=== PATIENT | female | born 1980 | race Caucasian/White ===

== ENCOUNTER 2021-03-09 17:49 | Emergency (ER) | payer OTHER ==
--- OUTSIDE RECORDS SUMMARY | 2021-03-09 17:52 | XMS REPORT | Continuity of Care Document ---
:1980 Author Organization [facility] t Address [address] [place] [address] Care Team Providers Name Role Phone NO Primary Care Physician Unavailable Payers Payer Name Policy Type Policy Number Effective Date Expiration Date S ource Problems This patient has no known problems. Allergies, Adverse Reactions, Alerts Allergy Allergy Status Severity Reaction(s) Onset Inactive Treating Comm ents Source Name Type Date Date Clinician No Known DA Active [facility] All[facility]ie 2-21 Clear s 00:00: [place] 00 [facility] Social History Social Habit Start Date Stop Date Quantity Comments Source Tobacco use and 2018-02-19 2018-02-19 Never used Dawson Mcdaniel ethodist exposure 00:00:00 00:00:00 Alcohol intake 2018-02-19 2018-02-19 Current drinker [place] [facility] 00:00:00 00:00:00 of alcohol (finding) Alcohol Comment 2018-02-18 2018-02-18 socially Dawson Mcdaniel ethodist 00:00:00 00:00:00 [birth year] Dawson Mcdaniel ethodist 00:00:00 00:00:00 Smoking Status Start Date Stop Date Source Never smoker Dawson awan Medications Ordered Filled Start Stop Current Ordering Indication Dosage Frequency Signature Comments Components Source Medication Medication Date Date Medication? Clinician (SIG) Name Name traMADol 2017- Yes 50mg Q6H Take 50 mg Josseline ston (ULTRAM) 50 4-16 by mouth Meth ann mg tablet 21:51: every 6 st 23 (six) hours as needed for moderate pain. aspirin-johnson 2017- Yes 1{tbl} Q6H Take 1 [place] taminophen- 4-16 tablet by Met h[place] caffeine 21:51: mouth st (EXCEDRIN 23 every 6 MIGRAINE) (six) 250-250-65 hours as mg per needed for tablet headaches. acetaminoph Yes 500mg Q6H Take 500 [place] en 4-16 mg by Methodi (TYLENOL) 21:51: mouth st 500 MG 23 every 6 tablet (six) hours as needed for mild pain. Procedures This patient has no known procedures. Encounters Start End Encounter Admission Attending Care Care Encounter Source Date/Time Date/Time Type Type Clinicians Facility Department ID 2017-12-10 2017-12-10 Departed [facility] [id number] [address] 15:39:00 16:35:00 Emergency [address] [place] s [facility] Results Test Description Test Time Test Comments Results Result Comments Source URINALYSIS COMPLETE 2019-08-14 14:21:00 Test Item Value Reference Range Interpretation Comme nts UA COLOR (test code = COLU) YELLOW YELLOW UA APPEARANCE (test code = APPU) CLEAR CLEAR UA GLUCOSE DIPSTICK (test code = DGLUU) norm mg/dL NEGATIVE UA BILIRUBIN DIPSTICK (test code = BILU) NEGATIVE mg/dL NEGATIVE UA KETONE DIPSTICK (test code = KETU) neg mg/dL NEGATIVE UA SPECIFIC GRAVITY (test code = SGU) 1.010 1.001-1.035 UA BLOOD DIPSTICK (test code = DAVID) 10 (Trace) Jason/uL NEGATIVE A UA PH DIPSTICK (test code = DONNY) 7.0 5.0-8.0 UA PROTEIN DIPSTICK (test code = PROU) neg mg/dL Neg-15 UA UROBILINIOGEN DIPSTICK (test code = URO) norm mg/dL 0.0-0.2 UA NITRITE DIPSTICK (test code = RONALD) NEGATIVE NEGATIVE UA LEUKOCYTE ESTERASE DIPSTICK (test code = LEUU) neg uL NEGA TIVE UA WBC (test code = WBCU) 0-5 per HPF 0-5 UA RBC (test code = RBCU) 0-3 per HPF 0-5 UA EPITHELIAL CELLS (test code = EPIU) MODERATE per HPF Few UA BACTERIA (test code = BACU) FEW per HPF NONE Urine Source? Clean CatchUR HCG [id number] 14:21:00 Test Item Value Reference Range Interpretation Comments UR HCG QUAL (test NEGATIVE This HCGQL test is NOT code = HCGQLU) applicable fo r MALE patients.Check with nurse about probable order error.If Tumor Marker Test needed, nu rse should order test "HCG TU"(Test #[id number])---- - Urine Source? Clean CatchURINALYSIS [id number] 14:19:00 Test Item Value Reference Range Interpretation Comments UA COLOR (test code = COLU) YELLOW YELLOW UA APPEARANCE (test code = CLEAR CLEAR APPU) UA GLUCOSE DIPSTICK (test norm mg/dL NEGATIVE code = DGLUU) UA BILIRUBIN DIPSTICK (test NEGATIVE mg/dL NEGATIVE code = BILU) UA KETONE DIPSTICK (test neg mg/dL NEGATIVE code = KETU) UA SPECIFIC GRAVITY (test 1.010 1.001-1.035 code = SGU) UA BLOOD DIPSTICK (test 10 (Trace) Jason/uL NEGATIVE A code = DAVID) UA PH DIPSTICK (test code = 7.0 5.0-8.0 DONNY) UA PROTEIN DIPSTICK (test neg mg/dL Neg-15 code = PROU) UA UROBILINIOGEN DIPSTICK norm mg/dL 0.0-0.2 (test code = URO) UA NITRITE DIPSTICK (test NEGATIVE NEGATIVE code = RONALD) UA LEUKOCYTE ESTERASE neg uL NEGATIVE DIPSTICK (test code = LEUU) UA WBC (test code = WBCU) per HPF 0-5 UA RBC (test code = RBCU) per HPF 0-5 UA EPITHELIAL CELLS (test per HPF Few code = EPIU) UA BACTERIA (test code = per HPF NONE BACU) Urine Source? Clean CatchUR HCG [id number] 14:19:00 Test Item Value Reference Range Interpretation Comments UR HCG QUAL (test NEGATIVE This HCGQL test is NOT code = HCGQLU) applicable fo r MALE patients.Check with nurse about probable order error.If Tumor Marker Test needed, nu rse should order test "HCG TU"(Test #[id number])---- - Urine Source? Clean CatchURINALYSIS [id number] 14:03:00 Test Item Value Reference Range Interpretation Comments UA COLOR (test code = COLU) YELLOW YELLOW UA APPEARANCE (test code = CLEAR CLEAR APPU) UA GLUCOSE DIPSTICK (test norm mg/dL NEGATIVE code = DGLUU) UA BILIRUBIN DIPSTICK (test NEGATIVE mg/dL NEGATIVE code = BILU) UA KETONE DIPSTICK (test neg mg/dL NEGATIVE code = KETU) UA SPECIFIC GRAVITY (test 1.010 1.001-1.035 code = SGU) UA BLOOD DIPSTICK (test 10 (Trace) Jason/uL NEGATIVE A code = DAVID) UA PH DIPSTICK (test code = 7.0 5.0-8.0 DONNY) UA PROTEIN DIPSTICK (test neg mg/dL Neg-15 code = PROU) UA UROBILINIOGEN DIPSTICK norm mg/dL 0.0-0.2 (test code = URO) UA NITRITE DIPSTICK (test NEGATIVE NEGATIVE code = RONALD) UA LEUKOCYTE ESTERASE neg uL NEGATIVE DIPSTICK (test code = LEUU) UA WBC (test code = WBCU) per HPF 0-5 UA RBC (test code = RBCU) per HPF 0-5 UA EPITHELIAL CELLS (test per HPF Few code = EPIU) UA BACTERIA (test code = per HPF NONE BACU) Urine Source? Clean CatchUR HCG [id number] 14:03:00 Test Item Value Reference Range Interpretation Comments UR HCG QUAL (test code = HCGQLU) Urine Source? Clean Catch
[2021-03-09 22:47] LABS: Urine Blood 2+ (Negative); Urine Glucose Negative (Negative); Urine Protein Negative (Negative); Urine pH 6.5 (5.0-7.0)
[2021-03-09] MEDS ORDERED: HYDROCODONE/APAP 7.5/325 MG TAB ONE (23:00)
[2021-03-09] MEDS ORDERED: CYCLOBENZAPRINE 10 MG TAB ONE (23:00)
[2021-03-10] MEDS ORDERED: MEPERIDINE HCL 25 MG/ML SYR ONE (00:27)
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
[2021-03-10 01:12] VITALS: BP 131/86; TEMP 97.7; O2SAT 100
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
== END 2021-03-10 00:59 | disposition home or self-care (01) ==
LOC: ER 17:49
DX: M54.2 Cervicalgia (principal); M54.9 Dorsalgia, unspecified; V43.52XA Car driver injured in collision with other type car in traffic accident, initial encounter
CPT/HCPCS: 81025; 81003; 72131; 70450; 72125; 72128; 96372; 99283; J2175

== ENCOUNTER 2023-05-17 10:25 | Emergency (ER) | payer OTHER ==
--- OUTSIDE RECORDS SUMMARY | 2023-05-17 10:37 | XMS REPORT | Continuity of Care Document ---
:[address] [facility] t Address [address] [place] [address] Care Team Providers Name Role Phone Asked, No Pcp Primary Care Physician Unavailable GLORIA JOHNSTON Attending Clinician Unavailable lGoria Jon Attending Clinician Unknown, Attending Attending Clinician Unavailable Doctor Unassigned, [place] Attending Clinician Unavailable Harriett Metzger Attending Clinician Payers Payer Name Policy Type Policy Number Effective Date Expiration Date Amando velazquez [facility] [id number] 2022 00:00:00 Problems This patient has no known problems. Allergies, Adverse Reactions, Alerts Allergy Allergy Status Severity Reaction(s) Onset Inactive Treating Comm ents Source Name Type Date Date Clinician No Known DA Active U [facility] No Known DA Active U 2017- [facility] Allergie 2-21 Clear s 00:00: [place] 00 [facility] NO KNOWN Drug Active Univers ALLERGIE Class ity of S [facility] Social History Social Habit Start Date Stop Date Quantity Comments Source [facility] History of tobacco Cigarette Smoker University of use [facility] Exposure to 2022-12-22 2023-01-01 Not sure University SARS-CoV-2 (event) 00:00:00 17:43:00 [facility] Tobacco use and 2023-01-01 2023-01-01 Smokeless Universit y of exposure 00:00:00 00:00:00 tobacco non-user [facility] History of Social 2018-10-09 2018-10-[address] function 00:00:00 00:00:00 Hospital Alcohol intake 2018-02-19 2018-02-19 Current drinker [facility] 00:00:00 00:00:00 of [facility] (finding) Alcohol Comment 2018-02-18 2018-02-18 socially [facility] Sex Assigned At [birth year] [facility] 00:[facility] Smoking Status Start Date Stop Date Source Tobacco [facility] 2023-01-01 00:00:00 Univers [facility] Never smoked tobacco [facility] Medications Ordered Filled Start Stop Current Ordering Indication Dosage Frequency Signature Comments Components Source Medication Medication Date Date Medication? Clinician (SIG) Name Name albuterol Yes [id number] 2{puff} Inhale 2 Univers 90 2-27 Puffs ity of mcg/actuati 00:00: every 6 Jorge as on inhaler 00 (six) Medical hours as Branch needed for Chest tightness or Bronchospa sm. promethazin 2022- No [id number] 5mL Take 5 mL Univers e-dextromet 27 03-10 by mouth 4 i ty of horphan 00:00: 05:59 (four) [place] 6.25-15 00 :00 times Medical mg/5 mL daily for Branch syrup 10 days. amoxicillin 2022- No [id number] 1{tbl} Take 1 Univers -clavulanat 2-27 03-10 tablet by it y of e 00:00: 05:59 mouth in [place] (AUGMENTIN) 00 :00 the [facility] 875-125 mg morning Branch per tablet and 1 tablet in the evening. Do all this for 10 days. predniSONE 0 2022- No [id number] 40mg Take 2 Univers 20 mg 2- 03-05 tablets by ity of tablet 00:00: 05:59 mouth in [place] 00 :00 the Medical morning Branch for 5 days. Dose 2022-0 No Unknown 8 00:00: 00 &lt 2022-0 No 8 00:00: 00 &lt 2022-0 No 300 8 00:00: 00 &lt 2022-0 No 10 06-15 00:00: 00 &lt 2022-0 No 50 8 00:00: 00 Dose 2-0 No Unknown 8 00:00: 00 TAKE 1 2021-0 No 10 TABLET BY 8-11 MOUTH EVERY 00:00: DAY 00 TAKE 1 2021-0 No 800 TABLET BY 8-11 MOUTH EVERY 00:00: DAY 00 NEEDED FOR PAIN Dose 2022-0 No Unknown 8 00:00: 00 Dose 2022-0 No Unknown 8 00:00: 00 &lt 2022-0 No 8 00:00: 00 &lt 2022-0 No 300 8 00:00: 00 &lt 2022-0 No 10 8 00:00: 00 &lt 2022-0 No 50 8 00:00: 00 Dose 2022-0 No Unknown 06-15 00:00: 00 TAKE 1 2-0 No 10 TABLET BY 8-11 MOUTH EVERY 00:00: DAY 00 TAKE 1 2-0 No 800 TABLET BY 8-11 MOUTH EVERY 00:00: DAY 00 NEEDED FOR PAIN Dose 2022-0 No Unknown 8 00:00: 00 Dose 2022-0 No Unknown 8 00:00: 00 &lt 2022-0 No 8- 00:00: 00 &lt 2022-0 No 300 8- 00:00: 00 &lt 2022-0 No 10 8 00:00: 00 &lt 2022-0 No 50 8- 00:00: 00 Dose 2022-0 No Unknown 06-15 00:00: 00 TAKE 1 2022-0 No 10 TABLET BY 8-11 MOUTH EVERY 00:00: DAY 00 TAKE 1 2022-0 No 800 TABLET BY 8-11 MOUTH EVERY 00:00: DAY 00 NEEDED FOR PAIN Dose 2022-0 No Unknown 06-15 00:00: 00 &lt 2022-0 No 50 8- 00:00: 00 &lt 2022-0 No 50 06-13 00:00: 00 &lt 2022-0 No 50 06-13 00:00: 00 Dose 2022-0 No Unknown 8 00:00: 00 &lt 2022-0 No 8- 00:00: 00 TAKE 1 2022-0 No 25 TABLET BY 8-03 MOUTH EVERY 00:00: 6 HOURS 00 NEEDED NEEDED ANXIETY &lt 2022-0 No 20 8- 00:00: 00 &lt 2022-0 No 800 8- 00:00: 00 Dose 2022-0 No Unknown 8- 00:00: 00 &lt 2022-0 No 8- 00:00: 00 TAKE 1 2022-0 No 25 TABLET BY 8-03 MOUTH EVERY 00:00: 6 HOURS 00 NEEDED NEEDED ANXIETY &lt 2022-0 No 20 8- 00:00: 00 &lt 2022-0 No 800 8- 00:00: 00 Dose 2022-0 No Unknown 8- 00:00: 00 &lt 2022-0 No 8-03 00:00: 00 TAKE 1 2022-0 No 25 TABLET BY 8-03 MOUTH EVERY 00:00: 6 HOURS 00 NEEDED NEEDED ANXIETY &lt 2022-0 No 20 8-03 00:00: 00 &lt 2022-0 No 800 8-03 00:00: 00 Dose 2022-0 No Unknown 8- 00:00: 00 &lt 2022-0 No 8-03 00:00: 00 TAKE 1 2022-0 No 25 TABLET BY 8-03 MOUTH EVERY 00:00: 6 HOURS 00 NEEDED NEEDED ANXIETY &lt 2022-0 No 20 8-03 00:00: 00 &lt 2022-0 No 800 8-03 00:00: 00 TAKE 1 2022-0 No 10 TABLET BY 7-14 MOUTH EVERY 00:00: DAY 00 Dose 2022-0 No Unknown 7-14 00:00: 00 TAKE 1 2022-0 No 10 TABLET BY 7-14 MOUTH EVERY 00:00: DAY 00 Dose 2022-0 No Unknown 7-14 00:00: 00 TAKE 1 2022-0 No 10 TABLET BY 7-14 MOUTH EVERY 00:00: DAY 00 Dose 2022-0 No Unknown 7-14 00:00: 00 TAKE 1 2-0 No 10 TABLET BY 7-14 MOUTH EVERY 00:00: DAY 00 Dose 2022-0 No Unknown 7-14 00:00: 00 Bromfed DM 2-0 No 10mg/5 2 mg-30 7-13 mL mg-10 mg/5 00:00: mL oral 00 syrup &lt 2022-0 No 50 7-13 00:00: 00 &lt 2022-0 No 7-13 00:00: 00 &lt 2022-0 No 7-13 00:00: 00 &lt 2022-0 No 300 7-13 00:00: 00 Dose 2022-0 No Unknown 7-13 00:00: 00 APPLY 1 2-0 No APPLICATION 7-13 ON THE SKIN 00:00: TWICE A DAY 00 TAKE 1 2-0 No 100 CAPSULE BY 7-13 MOUTH 3 00:00: TIMES A DAY 00 NEEDED FOR COUGH Dose 2022-0 No Unknown 7-13 00:00: 00 TAKE 1 2-0 No 100 CAPSULE BY 7-13 MOUTH 3 00:00: TIMES A DAY 00 NEEDED FOR COUGH TAKE 1 2-0 No 100 CAPSULE BY 7-13 MOUTH 3 00:00: TIMES A DAY 00 NEEDED FOR COUGH &lt 2022-0 No 250 7-13 00:00: 00 Dose 2022-0 No Unknown 7-13 00:00: 00 Dose 2022-0 No Unknown 7-13 00:00: 00 Dose 2022-0 No 20 Unknown 7-13 00:00: 00 Dose 2022-0 No 10 Unknown 7-13 00:00: 00 &lt 2022-0 No 7-13 00:00: 00 &lt 2022-0 No 150 7-13 00:00: 00 Bromfed DM 2-0 No 10mg/5 2 mg-30 7-13 mL mg-10 mg/5 00:00: mL oral 00 syrup &lt 2022-0 No 50 7-13 00:00: 00 &lt 2022-0 No 7-13 00:00: 00 &lt 2022-0 No 7-13 00:00: 00 &lt 2022-0 No 300 7-13 00:00: 00 Dose 2022-0 No Unknown 7-13 00:00: 00 APPLY 1 2-0 No APPLICATION 7-13 ON THE SKIN 00:00: TWICE A DAY 00 TAKE 1 2022-0 No 100 CAPSULE BY 7-13 MOUTH 3 00:00: TIMES A DAY 00 NEEDED FOR COUGH Dose 2022-0 No Unknown 7- 00:00: 00 TAKE 1 2-0 No 100 CAPSULE BY 7-13 MOUTH 3 00:00: TIMES A DAY 00 NEEDED FOR COUGH TAKE 1 2-0 No 100 CAPSULE BY 7-13 MOUTH 3 00:00: TIMES A DAY 00 NEEDED FOR COUGH &lt 2022-0 No 250 7-13 00:00: 00 Dose 2022-0 No Unknown 7- 00:00: 00 Dose 2022-0 No Unknown 7- 00:00: 00 Dose 2022-0 No 20 Unknown 7-13 00:00: 00 Dose 2022-0 No 10 Unknown 7-13 00:00: 00 &lt 2022-0 No 7-13 00:00: 00 &lt 2022-0 No 150 7-13 00:00: 00 Bromfed DM 2-0 No 10mg/5 2 mg-30 7-13 mL mg-10 mg/5 00:00: mL oral 00 syrup &lt 2022-0 No 50 7-13 00:00: 00 &lt 2022-0 No 7-13 00:00: 00 &lt 2022-0 No 7-13 00:00: 00 &lt 2022-0 No 300 7-13 00:00: 00 Dose 2022-0 No Unknown 7- 00:00: 00 APPLY 1 2-0 No APPLICATION 7-13 ON THE SKIN 00:00: TWICE A DAY 00 TAKE 1 2-0 No 100 CAPSULE BY 7-13 MOUTH 3 00:00: TIMES A DAY 00 NEEDED FOR COUGH Dose 2022-0 No Unknown 7- 00:00: 00 TAKE 1 2022-0 No 100 CAPSULE BY 7-13 MOUTH 3 00:00: TIMES A DAY 00 NEEDED FOR COUGH TAKE 1 2021-0 No 100 CAPSULE BY 7-13 MOUTH 3 00:00: TIMES A DAY 00 NEEDED FOR COUGH &lt 2-0 No 250 7-13 00:00: 00 Dose 2022-0 No Unknown 7- 00:00: 00 Dose 2022-0 No Unknown 7- 00:00: 00 Dose 2022-0 No 20 Unknown 7- 00:00: 00 Dose 2022-0 No 10 Unknown 7- 00:00: 00 &lt 2022-0 No 7-13 00:00: 00 &lt 2022-0 No 150 7- 00:00: 00 Bromfed DM 2021-0 No 10mg/5 2 mg-30 7-13 mL mg-10 mg/5 00:00: mL oral 00 syrup &lt 2021-0 No 50 7- 00:00: 00 &lt 2022-0 No 7-13 00:00: 00 &lt 2022-0 No 7-13 00:00: 00 &lt 2022-0 No 300 7- 00:00: 00 Dose 2-0 No Unknown 7 00:00: 00 APPLY 1 2021-0 No APPLICATION 7-13 ON THE SKIN 00:00: TWICE A DAY 00 TAKE 1 2021-0 No 100 CAPSULE BY 7-13 MOUTH 3 00:00: TIMES A DAY 00 NEEDED FOR COUGH Dose 2-0 No Unknown 7- 00:00: 00 TAKE 1 2021-0 No 100 CAPSULE BY 7-13 MOUTH 3 00:00: TIMES A DAY 00 NEEDED FOR COUGH TAKE 1 2021-0 No 100 CAPSULE BY 7-13 MOUTH 3 00:00: TIMES A DAY 00 NEEDED FOR COUGH &lt 2-0 No 250 7-13 00:00: 00 Dose 2-0 No Unknown 7- 00:00: 00 Dose 2022-0 No Unknown 7- 00:00: 00 Dose 2022-0 No 20 Unknown 7- 00:00: 00 Dose 2022-0 No 10 Unknown 7- 00:00: 00 &lt 2022-0 No 7-13 00:00: 00 &lt 2022-0 No 150 7- 00:00: 00 Bromfed DM 2022-0 No 10mg/5 2 mg-30 7-13 mL mg-10 mg/5 00:00: mL oral 00 syrup &lt 2022-0 No 50 7-13 00:00: 00 &lt 2022-0 No 7-13 00:00: 00 &lt 2022-0 No 7-13 00:00: 00 &lt 2022-0 No 300 7-13 00:00: 00 Dose 2022-0 No Unknown 7- 00:00: 00 APPLY 1 2-0 No APPLICATION 7-13 ON THE SKIN 00:00: TWICE A DAY 00 TAKE 1 2021-0 No 100 CAPSULE BY 7-13 MOUTH 3 00:00: TIMES A DAY 00 NEEDED FOR COUGH Dose 2-0 No Unknown 7- 00:00: 00 TAKE 1 2-0 No 100 CAPSULE BY 7-13 MOUTH 3 00:00: TIMES A DAY 00 NEEDED FOR COUGH TAKE 1 2-0 No 100 CAPSULE BY 7-13 MOUTH 3 00:00: TIMES A DAY 00 NEEDED FOR COUGH &lt 2022-0 No 250 7- 00:00: 00 Dose 2022-0 No Unknown 7- 00:00: 00 Dose 2022-0 No Unknown 7 00:00: 00 Dose 2022-0 No 20 Unknown 7 00:00: 00 Dose 2022-0 No 10 Unknown 7- 00:00: 00 &lt 2022-0 No 7- 00:00: 00 &lt 2022-0 No 150 7- 00:00: 00 Dose 2022-0 No 10 Unknown 7- 00:00: 00 Dose 2022-0 No 20 Unknown 7- 00:00: 00 Dose 2022-0 No 10 Unknown 7- 00:00: 00 Dose 2022-0 No 20 Unknown 7- 00:00: 00 Dose 2022-0 No 10 Unknown 7- 00:00: 00 Dose 2022-0 No 20 Unknown 7 00:00: 00 Dose 2022-0 No 10 Unknown 7- 00:00: 00 Dose 2022-0 No 20 Unknown 7 00:00: 00 Dose 2022-0 No 10 Unknown 7- 00:00: 00 Dose 2022-0 No 20 Unknown 7 00:00: 00 Dose 2022-0 No 10 Unknown 7-07 00:00: 00 Dose 2022-0 No 20 Unknown 05-11 00:00: 00 ibuprofen 2022-0 No 1mg 600 mg 7-06 tablet 00:00: 00 gabapentin 2022-0 No 1mg 300 mg 7-06 capsule 00:00: 00 TAKE 1 2022-0 No 20 TABLET BY 7-06 MOUTH TWICE 00:00: A DAY 00 TAKE 1 2022-0 No 100 CAPSULE BY 7-06 MOUTH 3 00:00: TIMES A DAY 00 NEEDED FOR COUGH &lt 2022-0 No 10 - 00:00: 00 TAKE 1 2022-0 No 10 TABLET BY 7-06 MOUTH EVERY 00:00: DAY 00 APPLY 1 2022-0 No APPLICATION 7-06 ON THE SKIN 00:00: TWICE A DAY 00 Dose 2022-0 No Unknown 05-10 00:00: 00 ibuprofen 2022-0 No 1mg 600 mg 7-06 tablet 00:00: 00 gabapentin 2022-0 No 1mg 300 mg 7-06 capsule 00:00: 00 TAKE 1 2022-0 No 20 TABLET BY 7-06 MOUTH TWICE 00:00: A DAY 00 TAKE 1 2022-0 No 100 CAPSULE BY 7-06 MOUTH 3 00:00: TIMES A DAY 00 NEEDED FOR COUGH &lt 2022-0 No 10 05-10 00:00: 00 TAKE 1 2022-0 No 10 TABLET BY 7-06 MOUTH EVERY 00:00: DAY 00 APPLY 1 2022-0 No APPLICATION 7-06 ON THE SKIN 00:00: TWICE A DAY 00 Dose 2022-0 No Unknown 05-10 00:00: 00 ibuprofen 2022-0 No 1mg 600 mg 7-06 tablet 00:00: 00 gabapentin 2022-0 No 1mg 300 mg 7-06 capsule 00:00: 00 TAKE 1 2022-0 No 20 TABLET BY 7-06 MOUTH TWICE 00:00: A DAY 00 TAKE 1 2022-0 No 100 CAPSULE BY 7-06 MOUTH 3 00:00: TIMES A DAY 00 NEEDED FOR COUGH &lt 2022-0 No 10 - 00:00: 00 TAKE 1 2022-0 No 10 TABLET BY 7-06 MOUTH EVERY 00:00: DAY 00 APPLY 1 2022-0 No APPLICATION 7-06 ON THE SKIN 00:00: TWICE A DAY 00 Dose 2022-0 No Unknown 7-06 00:00: 00 ibuprofen 2022-0 No 1mg 600 mg 7-06 tablet 00:00: 00 gabapentin 2022-0 No 1mg 300 mg 7-06 capsule 00:00: 00 TAKE 1 2022-0 No 20 TABLET BY 7-06 MOUTH TWICE 00:00: A DAY 00 TAKE 1 2022-0 No 100 CAPSULE BY 7-06 MOUTH 3 00:00: TIMES A DAY 00 NEEDED FOR COUGH &lt 2022-0 No 10 7- 00:00: 00 TAKE 1 2022-0 No 10 TABLET BY 7-06 MOUTH EVERY 00:00: DAY 00 APPLY 1 2022-0 No APPLICATION 7-06 ON THE SKIN 00:00: TWICE A DAY 00 Dose 2022-0 No Unknown - 00:00: 00 ibuprofen 2022-0 No 1mg 600 mg 7-06 tablet 00:00: 00 gabapentin 2022-0 No 1mg 300 mg 7-06 capsule 00:00: 00 TAKE 1 2022-0 No 20 TABLET BY 7-06 MOUTH TWICE 00:00: A DAY 00 TAKE 1 2022-0 No 100 CAPSULE BY 7-06 MOUTH 3 00:00: TIMES A DAY 00 NEEDED FOR COUGH &lt 2022-0 No 10 7- 00:00: 00 TAKE 1 2022-0 No 10 TABLET BY 7-06 MOUTH EVERY 00:00: DAY 00 APPLY 1 2022-0 No APPLICATION 7-06 ON THE SKIN 00:00: TWICE A DAY 00 Dose 2022-0 No Unknown 05-10 00:00: 00 ibuprofen 2022-0 No 1mg 600 mg 7-06 tablet 00:00: 00 gabapentin 2022-0 No 1mg 300 mg 7-06 capsule 00:00: 00 TAKE 1 2022-0 No 20 TABLET BY 7-06 MOUTH TWICE 00:00: A DAY 00 TAKE 1 2022-0 No 100 CAPSULE BY 7-06 MOUTH 3 00:00: TIMES A DAY 00 NEEDED FOR COUGH &lt 2022-0 No 10 - 00:00: 00 TAKE 1 2022-0 No 10 TABLET BY 7-06 MOUTH EVERY 00:00: DAY 00 APPLY 1 2022-0 No APPLICATION 7-06 ON THE SKIN 00:00: TWICE A DAY 00 Dose 2022-0 No Unknown 7- 00:00: 00 &lt 2022-0 No 7-05 00:00: 00 &lt 2022-0 No 7-05 00:00: 00 &lt 2022-0 No 7-05 00:00: 00 &lt 2022-0 No 7-05 00:00: 00 &lt 2022-0 No 7-05 00:00: 00 &lt 2022-0 No 7-05 00:00: 00 TAKE 1 2022-0 No TABLET BY 6-23 MOUTH TWICE 00:00: A DAY 00 TAKE 1 2022-0 No TABLET BY 6-23 MOUTH TWICE 00:00: A DAY 00 TAKE 1 2022-0 No TABLET BY 6-23 MOUTH TWICE 00:00: A DAY 00 TAKE 1 2022-0 No TABLET BY 6-23 MOUTH TWICE 00:00: A DAY 00 TAKE 1 2022-0 No TABLET BY 6-23 MOUTH TWICE 00:00: A DAY 00 TAKE 1 2022-0 No TABLET BY 6-23 MOUTH TWICE 00:00: A DAY 00 ProAir HFA 2021-0 No 1mcg/ac 90 5-18 tuation mcg/actuati 00:00: on aerosol 00 inhaler cetirizine 2021-0 No 1mg 10 mg 5-18 tablet 00:00: 00 fluticasone 2-0 No 1mcg/ac propionate 5-18 tuation 50 00:00: mcg/actuati 00 on nasal spray,suspe nsion Bromfed DM 2021-0 No 10mg/5 2 mg-30 5-18 mL mg-10 mg/5 00:00: mL oral 00 syrup ProAir HFA 2021-0 No 1mcg/ac 90 5-18 tuation mcg/actuati 00:00: on aerosol 00 inhaler cetirizine 2021-0 No 1mg 10 mg 5-18 tablet 00:00: 00 fluticasone 2-0 No 1mcg/ac propionate 5-18 tuation 50 00:00: mcg/actuati 00 on nasal spray,suspe nsion Bromfed DM 2021-0 No 10mg/5 2 mg-30 5-18 mL mg-10 mg/5 00:00: mL oral 00 syrup ProAir HFA 2021-0 No 1mcg/ac 90 5-18 tuation mcg/actuati 00:00: on aerosol 00 inhaler cetirizine 2021-0 No 1mg 10 mg 5-18 tablet 00:00: 00 fluticasone 2021-0 No 1mcg/ac propionate 5-18 tuation 50 00:00: mcg/actuati 00 on nasal spray,susptrinh Felton DM 2021-0 No 10mg/5 2 mg-30 5-18 mL mg-10 mg/5 00:00: mL oral 00 syrup ProAir HFA 2021-0 No 1mcg/ac 90 5-18 tuation mcg/actuati 00:00: on aerosol 00 inhaler cetirizine 2021-0 No 1mg 10 mg 5-18 tablet 00:00: 00 fluticasone 2021-0 No 1mcg/ac propionate 5-18 tuation 50 00:00: mcg/actuati 00 on nasal spray,susptrinh Fel[place] DM 2021-0 No 10mg/5 2 mg-30 5-18 mL mg-10 mg/5 00:00: mL oral 00 syrup ProAir HFA 2021-0 No 1mcg/ac 90 5-18 tuation mcg/actuati 00:00: on aerosol 00 inhaler cetirizine 2021-0 No 1mg 10 mg 5-18 tablet 00:00: 00 fluticasone 2021-0 No 1mcg/ac propionate 5-18 tuation 50 00:00: mcg/actuati 00 on nasal spray,susptrinh Felton DM 2021-0 No 10mg/5 2 mg-30 5-18 mL mg-10 mg/5 00:00: mL oral 00 syrup ProAir HFA 2021-0 No 1mcg/ac 90 5-18 tuation mcg/actuati 00:00: on aerosol 00 inhaler cetirizine 2021-0 No 1mg 10 mg 5-18 tablet 00:00: 00 fluticasone 2021-0 No 1mcg/ac propionate 5-18 tuation 50 00:00: mcg/actuati 00 on nasal spray,susptrinh [place] DM 2021-0 No 10mg/5 2 mg-30 5-18 mL mg-10 mg/5 00:00: mL oral 00 syrup Dose 2021-0 No Unknown 4-04 00:00: 00 Dose 2-0 No Unknown 4-04 00:00: 00 Dose 2022-0 No Unknown 4-04 00:00: 00 Dose 2022-0 No Unknown 4-04 00:00: 00 Dose 2022-0 No Unknown 4-04 00:00: 00 Dose 2022-0 No Unknown 4-04 00:00: 00 Dose 2022-0 No Unknown 4-04 00:00: 00 Dose 2022-0 No Unknown 4-04 00:00: 00 Dose 2022-0 No Unknown 4-04 00:00: 00 Dose 2022-0 No Unknown 4-04 00:00: 00 Dose 2022-0 No Unknown 4-04 00:00: 00 Dose 2022-0 No Unknown 4-04 00:00: 00 Dose 2022-0 No Unknown 4-04 00:00: 00 Dose 2022-0 No Unknown 4-04 00:00: 00 Dose 2022-0 No Unknown 4-04 00:00: 00 Dose 2022-0 No Unknown 4-04 00:00: 00 Dose 2022-0 No Unknown 4-04 00:00: 00 ProAir HFA 2022-0 No 1mcg/ac 90 4-04 tuation mcg/actuati 00:00: on aerosol 00 inhaler ProAir HFA 2022-0 No 1mcg/ac 90 4-04 tuation mcg/actuati 00:00: on aerosol 00 inhaler ibuprofen 2022-0 No 1mg 800 mg 4-04 tablet 00:00: 00 ibuprofen 2022-0 No 1mg 800 mg 4-04 tablet 00:00: 00 prednisone 2022-0 No mg 20 mg 4-04 tablet 00:00: 00 prednisone 2022-0 No mg 20 mg 4-04 tablet 00:00: 00 Bromfed DM 2022-0 No 10mg/5 2 mg-30 4-04 mL mg-10 mg/5 00:00: mL oral 00 syrup Bromfed DM 2022-0 No 10mg/5 2 mg-30 4-04 mL mg-10 mg/5 00:00: mL oral 00 syrup Dose 2022-0 No Unknown 4-04 00:00: 00 Dose 2022-0 No Unknown 4-04 00:00: 00 Dose 2022-0 No Unknown 4-04 00:00: 00 Dose 2022-0 No Unknown 4-04 00:00: 00 Dose 2022-0 No Unknown 4-04 00:00: 00 Dose 2022-0 No Unknown 4-04 00:00: 00 Dose 2022-0 No Unknown 4-04 00:00: 00 Dose 2022-0 No Unknown 4-04 00:00: 00 Dose 2022-0 No Unknown 4-04 00:00: 00 Dose 2022-0 No Unknown 4-04 00:00: 00 Dose 2022-0 No Unknown 4-04 00:00: 00 Dose 2022-0 No Unknown 4-04 00:00: 00 Dose 2022-0 No Unknown 4-04 00:00: 00 ProAir HFA 2022-0 No 1mcg/ac 90 4-04 tuation mcg/actuati 00:00: on aerosol 00 inhaler ProAir HFA 2022-0 No 1mcg/ac 90 4-04 tuation mcg/actuati 00:00: on aerosol 00 inhaler Dose 2022-0 No Unknown 4-04 00:00: 00 ibuprofen 2022-0 No 1mg 800 mg 4-04 tablet 00:00: 00 ibuprofen 2022-0 No 1mg 800 mg 4-04 tablet 00:00: 00 prednisone 2022-0 No mg 20 mg 4-04 tablet 00:00: 00 prednisone 2022-0 No mg 20 mg 4-04 tablet 00:00: 00 Bromfed DM 2022-0 No 10mg/5 2 mg-30 4-04 mL mg-10 mg/5 00:00: mL oral 00 syrup Bromfed DM 2022-0 No 10mg/5 2 mg-30 4-04 mL mg-10 mg/5 00:00: mL oral 00 syrup Dose 2022-0 No Unknown 4-04 00:00: 00 Dose 2022-0 No Unknown 4-04 00:00: 00 Dose 2022-0 No Unknown 4-04 00:00: 00 Dose 2022-0 No Unknown 4-04 00:00: 00 Dose 2022-0 No Unknown 4-04 00:00: 00 Dose 2022-0 No Unknown 4-04 00:00: 00 Dose 2022-0 No Unknown 4-04 00:00: 00 Dose 2022-0 No Unknown 4-04 00:00: 00 Dose 2022-0 No Unknown 4-04 00:00: 00 Dose 2022-0 No Unknown 4-04 00:00: 00 Dose 2022-0 No Unknown 4-04 00:00: 00 Dose 2022-0 No Unknown 4-04 00:00: 00 Dose 2022-0 No Unknown 4-04 00:00: 00 Dose 2022-0 No Unknown 4-04 00:00: 00 Dose 2022-0 No Unknown 4-04 00:00: 00 Dose 2022-0 No Unknown 4-04 00:00: 00 Dose 2022-0 No Unknown 4-04 00:00: 00 Dose 2022-0 No Unknown 4-04 00:00: 00 Dose 2022-0 No Unknown 4-04 00:00: 00 Dose 2022-0 No Unknown 4-04 00:00: 00 Dose 2022-0 No Unknown 4-04 00:00: 00 Dose 2022-0 No Unknown 4-04 00:00: 00 Dose 2022-0 No Unknown 4-04 00:00: 00 Dose 2022-0 No Unknown 4-04 00:00: 00 Dose 2022-0 No Unknown 4-04 00:00: 00 Dose 2022-0 No Unknown 4-04 00:00: 00 Dose 2022-0 No Unknown 4-04 00:00: 00 Dose 2022-0 No Unknown 4-04 00:00: 00 Dose 2022-0 No Unknown 4-04 00:00: 00 Dose 2022-0 No Unknown 4-04 00:00: 00 Dose 2022-0 No Unknown 4-04 00:00: 00 Dose 2022-0 No Unknown 4-04 00:00: 00 Dose 2022-0 No Unknown 4-04 00:00: 00 Dose 2022-0 No Unknown 4-04 00:00: 00 Dose 2022-0 No Unknown 4-04 00:00: 00 Dose 2022-0 No Unknown 4-04 00:00: 00 Dose 2022-0 No Unknown 4-04 00:00: 00 Dose 2022-0 No Unknown 4-04 00:00: 00 Dose 2022-0 No Unknown 4-04 00:00: 00 Dose 2022-0 No Unknown 4-04 00:00: 00 Dose 2022-0 No Unknown 4-04 00:00: 00 Dose 2022-0 No Unknown 4-04 00:00: 00 Dose 2022-0 No Unknown 4-04 00:00: 00 Dose 2022-0 No Unknown 4-04 00:00: 00 Dose 2022-0 No Unknown 4-04 00:00: 00 Dose 2022-0 No Unknown 4-04 00:00: 00 Dose 2022-0 No Unknown 4-04 00:00: 00 Dose 2022-0 No Unknown 4-04 00:00: 00 Dose 2022-0 No Unknown 4-04 00:00: 00 Dose 2022-0 No Unknown 4-04 00:00: 00 Dose 2022-0 No Unknown 4-04 00:00: 00 Dose 2022-0 No Unknown 4-04 00:00: 00 Dose 2022-0 No Unknown 4-04 00:00: 00 Dose 2022-0 No Unknown 4-04 00:00: 00 Dose 2022-0 No Unknown 4-04 00:00: 00 Dose 2022-0 No Unknown 4-04 00:00: 00 Dose 2022-0 No Unknown 4-04 00:00: 00 Dose 2022-0 No Unknown 4-04 00:00: 00 Dose 2022-0 No Unknown 4-04 00:00: 00 Dose 2022-0 No Unknown 4-04 00:00: 00 Dose 2022-0 No Unknown 4-04 00:00: 00 Dose 2022-0 No Unknown 4-04 00:00: 00 Dose 2022-0 No Unknown 4-04 00:00: 00 Dose 2022-0 No Unknown 4-04 00:00: 00 Dose 2022-0 No Unknown 4-04 00:00: 00 Dose 2022-0 No Unknown 4-04 00:00: 00 Dose 2022-0 No Unknown 4-04 00:00: 00 Dose 2022-0 No Unknown 4-04 00:00: 00 Dose 2022-0 No Unknown 4-04 00:00: 00 Dose 2022-0 No Unknown 4-04 00:00: 00 Dose 2022-0 No Unknown 4-04 00:00: 00 Dose 2022-0 No Unknown 4-04 00:00: 00 Dose 2022-0 No Unknown 4-04 00:00: 00 Dose 2022-0 No Unknown 4-04 00:00: 00 Dose 2022-0 No Unknown 4-04 00:00: 00 Dose 2022-0 No Unknown 4-04 00:00: 00 Dose 2022-0 No Unknown 4-04 00:00: 00 Dose 2022-0 No Unknown 4-04 00:00: 00 Dose 2022-0 No Unknown 4-04 00:00: 00 Dose 2022-0 No Unknown 4-04 00:00: 00 Dose 2022-0 No Unknown 4-04 00:00: 00 Dose 2022-0 No Unknown 4-04 00:00: 00 Dose 2022-0 No Unknown 4-04 00:00: 00 Dose 2022-0 No Unknown 4-04 00:00: 00 Dose 2022-0 No Unknown 4-04 00:00: 00 Dose 2022-0 No Unknown 4-04 00:00: 00 Dose 2022-0 No Unknown 4-04 00:00: 00 Dose 2022-0 No Unknown 4-04 00:00: 00 Dose 2022-0 No Unknown 4-04 00:00: 00 Dose 2022-0 No Unknown 4-04 00:00: 00 Dose 2022-0 No Unknown 4-04 00:00: 00 Dose 2022-0 No Unknown 4-04 00:00: 00 Dose 2022-0 No Unknown 4-04 00:00: 00 Dose 2022-0 No Unknown 4-04 00:00: 00 Dose 2022-0 No Unknown 4-04 00:00: 00 Dose 2022-0 No Unknown 4-04 00:00: 00 Dose 2022-0 No Unknown 4-04 00:00: 00 Dose 2022-0 No Unknown 4-04 00:00: 00 Dose 2022-0 No Unknown 4-04 00:00: 00 Dose 2022-0 No Unknown 4-04 00:00: 00 Dose 2022-0 No Unknown 4-04 00:00: 00 Dose 2022-0 No Unknown 4-04 00:00: 00 Dose 2022-0 No Unknown 4-04 00:00: 00 Dose 2022-0 No Unknown 4-04 00:00: 00 Dose 2022-0 No Unknown 4-04 00:00: 00 Dose 2022-0 No Unknown 4-04 00:00: 00 Dose 2022-0 No Unknown 4-04 00:00: 00 Dose 2022-0 No Unknown 4-04 00:00: 00 Dose 2022-0 No Unknown 4-04 00:00: 00 Dose 2022-0 No Unknown 4-04 00:00: 00 Dose 2022-0 No Unknown 4-04 00:00: 00 Dose 2022-0 No Unknown 4-04 00:00: 00 Dose 2022-0 No Unknown 4-04 00:00: 00 Dose 2022-0 No Unknown 4-04 00:00: 00 Dose 2022-0 No Unknown 4-04 00:00: 00 Dose 2022-0 No Unknown 4-04 00:00: 00 Dose 2022-0 No Unknown 4-04 00:00: 00 Dose 2022-0 No Unknown 4-04 00:00: 00 Dose 2022-0 No Unknown 4-04 00:00: 00 Dose 2022-0 No Unknown 4-04 00:00: 00 Dose 2022-0 No Unknown 4-04 00:00: 00 Dose 2022-0 No Unknown 4-04 00:00: 00 Dose 2022-0 No Unknown 4-04 00:00: 00 Dose 2022-0 No Unknown 4-04 00:00: 00 Dose 2022-0 No Unknown 4-04 00:00: 00 Dose 2022-0 No Unknown 4-04 00:00: 00 Dose 2022-0 No Unknown 4-04 00:00: 00 Dose 2022-0 No Unknown 4-04 00:00: 00 Dose 2022-0 No Unknown 4-04 00:00: 00 Dose 2022-0 No Unknown 4-04 00:00: 00 ProAir HFA 2022-0 No 1mcg/ac 90 4-04 tuation mcg/actuati 00:00: on aerosol 00 inhaler ProAir HFA 2022-0 No 1mcg/ac 90 4-04 tuation mcg/actuati 00:00: on aerosol 00 inhaler ibuprofen 2022-0 No 1mg 800 mg 4-04 tablet 00:00: 00 ibuprofen 2022-0 No 1mg 800 mg 4-04 tablet 00:00: 00 prednisone 2022-0 No mg 20 mg 4-04 tablet 00:00: 00 prednisone 2022-0 No mg 20 mg 4-04 tablet 00:00: 00 Bromfed DM 2-0 No 10mg/5 2 mg-30 4-04 mL mg-10 mg/5 00:00: mL oral 00 syrup Bromfed DM 2-0 No 10mg/5 2 mg-30 4-04 mL mg-10 mg/5 00:00: mL oral 00 syrup Dose 2022-0 No Unknown 4-04 00:00: 00 Dose 2022-0 No Unknown 4-04 00:00: 00 Dose 2022-0 No Unknown 4-04 00:00: 00 Dose 2022-0 No Unknown 4-04 00:00: 00 Dose 2022-0 No Unknown 4-04 00:00: 00 Dose 2022-0 No Unknown 4-04 00:00: 00 Dose 2022-0 No Unknown 4-04 00:00: 00 Dose 2022-0 No Unknown 4-04 00:00: 00 Dose 2022-0 No Unknown 4-04 00:00: 00 Dose 2022-0 No Unknown 4-04 00:00: 00 Dose 2022-0 No Unknown 4-04 00:00: 00 Dose 2022-0 No Unknown 4-04 00:00: 00 Dose 2022-0 No Unknown 4-04 00:00: 00 Dose 2022-0 No Unknown 4-04 00:00: 00 Dose 2022-0 No Unknown 4-04 00:00: 00 Dose 2022-0 No Unknown 4-04 00:00: 00 Dose 2022-0 No Unknown 4-04 00:00: 00 Dose 2022-0 No Unknown 4-04 00:00: 00 Dose 2022-0 No Unknown 4-04 00:00: 00 Dose 2022-0 No Unknown 4-04 00:00: 00 Dose 2022-0 No Unknown 4-04 00:00: 00 Dose 2022-0 No Unknown 4-04 00:00: 00 Dose 2022-0 No Unknown 4-04 00:00: 00 Dose 2022-0 No Unknown 4-04 00:00: 00 Dose 2022-0 No Unknown 4-04 00:00: 00 Dose 2022-0 No Unknown 4-04 00:00: 00 Dose 2022-0 No Unknown 4-04 00:00: 00 Dose 2022-0 No Unknown 4-04 00:00: 00 Dose 2022-0 No Unknown 4-04 00:00: 00 Dose 2022-0 No Unknown 4-04 00:00: 00 Dose 2022-0 No Unknown 4-04 00:00: 00 Dose 2022-0 No Unknown 4-04 00:00: 00 Dose 2022-0 No Unknown 4-04 00:00: 00 Dose 2022-0 No Unknown 4-04 00:00: 00 Dose 2022-0 No Unknown 4-04 00:00: 00 Dose 2022-0 No Unknown 4-04 00:00: 00 Dose 2022-0 No Unknown 4-04 00:00: 00 Dose 2022-0 No Unknown 4-04 00:00: 00 Dose 2022-0 No Unknown 4-04 00:00: 00 Dose 2022-0 No Unknown 4-04 00:00: 00 Dose 2022-0 No Unknown 4-04 00:00: 00 Dose 2022-0 No Unknown 4-04 00:00: 00 Dose 2022-0 No Unknown 4-04 00:00: 00 Dose 2022-0 No Unknown 4-04 00:00: 00 Dose 2022-0 No Unknown 4-04 00:00: 00 Dose 2022-0 No Unknown 4-04 00:00: 00 Dose 2022-0 No Unknown 4-04 00:00: 00 Dose 2022-0 No Unknown 4-04 00:00: 00 Dose 2022-0 No Unknown 4-04 00:00: 00 Dose 2022-0 No Unknown 4-04 00:00: 00 Dose 2022-0 No Unknown 4-04 00:00: 00 Dose 2022-0 No Unknown 4-04 00:00: 00 Dose 2022-0 No Unknown 4-04 00:00: 00 Dose 2022-0 No Unknown 4-04 00:00: 00 Dose 2022-0 No Unknown 4-04 00:00: 00 Dose 2022-0 No Unknown 4-04 00:00: 00 Dose 2022-0 No Unknown 4-04 00:00: 00 Dose 2022-0 No Unknown 4-04 00:00: 00 Dose 2022-0 No Unknown 4-04 00:00: 00 Dose 2022-0 No Unknown 4-04 00:00: 00 Dose 2022-0 No Unknown 4-04 00:00: 00 Dose 2022-0 No Unknown 4-04 00:00: 00 Dose 2022-0 No Unknown 4-04 00:00: 00 Dose 2022-0 No Unknown 4-04 00:00: 00 Dose 2022-0 No Unknown 4-04 00:00: 00 Dose 2022-0 No Unknown 4-04 00:00: 00 Dose 2022-0 No Unknown 4-04 00:00: 00 Dose 2022-0 No Unknown 4-04 00:00: 00 Dose 2022-0 No Unknown 4-04 00:00: 00 Dose 2022-0 No Unknown 4-04 00:00: 00 Dose 2022-0 No Unknown 4-04 00:00: 00 Dose 2022-0 No Unknown 4-04 00:00: 00 ProAir HFA 2022-0 No 1mcg/ac 90 4-04 tuation mcg/actuati 00:00: on aerosol 00 inhaler ProAir HFA 2022-0 No 1mcg/ac 90 4-04 tuation mcg/actuati 00:00: on aerosol 00 inhaler ibuprofen 2022-0 No 1mg 800 mg 4-04 tablet 00:00: 00 ibuprofen 2022-0 No 1mg 800 mg 4-04 tablet 00:00: 00 prednisone 2022-0 No mg 20 mg 4-04 tablet 00:00: 00 prednisone 2022-0 No mg 20 mg 4-04 tablet 00:00: 00 Bromfed DM 2022-0 No 10mg/5 2 mg-30 4-04 mL mg-10 mg/5 00:00: mL oral 00 syrup Bromfed DM 2022-0 No 10mg/5 2 mg-30 4-04 mL mg-10 mg/5 00:00: mL oral 00 syrup Dose 2022-0 No Unknown 4-04 00:00: 00 Dose 2022-0 No Unknown 4-04 00:00: 00 Dose 2022-0 No Unknown 4-04 00:00: 00 Dose 2022-0 No Unknown 4-04 00:00: 00 Dose 2022-0 No Unknown 4-04 00:00: 00 Dose 2022-0 No Unknown 4-04 00:00: 00 Dose 2022-0 No Unknown 4-04 00:00: 00 Dose 2022-0 No Unknown 4-04 00:00: 00 Dose 2022-0 No Unknown 4-04 00:00: 00 Dose 2022-0 No Unknown 4-04 00:00: 00 Dose 2022-0 No Unknown 4-04 00:00: 00 Dose 2022-0 No Unknown 4-04 00:00: 00 Dose 2022-0 No Unknown 4-04 00:00: 00 Dose 2022-0 No Unknown 4-04 00:00: 00 Dose 2022-0 No Unknown 4-04 00:00: 00 Dose 2022-0 No Unknown 4-04 00:00: 00 Dose 2022-0 No Unknown 4-04 00:00: 00 Dose 2022-0 No Unknown 4-04 00:00: 00 Dose 2022-0 No Unknown 4-04 00:00: 00 Dose 2022-0 No Unknown 4-04 00:00: 00 Dose 2022-0 No Unknown 4-04 00:00: 00 Dose 2022-0 No Unknown 4-04 00:00: 00 Dose 2022-0 No Unknown 4-04 00:00: 00 Dose 2022-0 No Unknown 4-04 00:00: 00 Dose 2022-0 No Unknown 4-04 00:00: 00 Dose 2022-0 No Unknown 4-04 00:00: 00 Dose 2022-0 No Unknown 4-04 00:00: 00 Dose 2022-0 No Unknown 4-04 00:00: 00 Dose 2022-0 No Unknown 4-04 00:00: 00 Dose 2022-0 No Unknown 4-04 00:00: 00 Dose 2022-0 No Unknown 4-04 00:00: 00 Dose 2022-0 No Unknown 4-04 00:00: 00 Dose 2022-0 No Unknown 4-04 00:00: 00 Dose 2022-0 No Unknown 4-04 00:00: 00 Dose 2022-0 No Unknown 4-04 00:00: 00 Dose 2022-0 No Unknown 4-04 00:00: 00 Dose 2022-0 No Unknown 4-04 00:00: 00 Dose 2022-0 No Unknown 4-04 00:00: 00 Dose 2022-0 No Unknown 4-04 00:00: 00 Dose 2022-0 No Unknown 4-04 00:00: 00 Dose 2022-0 No Unknown 4-04 00:00: 00 Dose 2022-0 No Unknown 4-04 00:00: 00 Dose 2022-0 No Unknown 4-04 00:00: 00 Dose 2022-0 No Unknown 4-04 00:00: 00 Dose 2022-0 No Unknown 4-04 00:00: 00 Dose 2022-0 No Unknown 4-04 00:00: 00 Dose 2022-0 No Unknown 4-04 00:00: 00 Dose 2022-0 No Unknown 4-04 00:00: 00 Dose 2022-0 No Unknown 4-04 00:00: 00 Dose 2022-0 No Unknown 4-04 00:00: 00 Dose 2022-0 No Unknown 4-04 00:00: 00 Dose 2022-0 No Unknown 4-04 00:00: 00 Dose 2022-0 No Unknown 4-04 00:00: 00 Dose 2022-0 No Unknown 4-04 00:00: 00 Dose 2022-0 No Unknown 4-04 00:00: 00 Dose 2022-0 No Unknown 4-04 00:00: 00 Dose 2022-0 No Unknown 4-04 00:00: 00 Dose 2022-0 No Unknown 4-04 00:00: 00 Dose 2022-0 No Unknown 4-04 00:00: 00 Dose 2022-0 No Unknown 4-04 00:00: 00 Dose 2022-0 No Unknown 4-04 00:00: 00 Dose 2022-0 No Unknown 4-04 00:00: 00 Dose 2022-0 No Unknown 4-04 00:00: 00 Dose 2022-0 No Unknown 4-04 00:00: 00 Dose 2022-0 No Unknown 4-04 00:00: 00 Dose 2022-0 No Unknown 4-04 00:00: 00 Dose 2022-0 No Unknown 4-04 00:00: 00 Dose 2022-0 No Unknown 4-04 00:00: 00 Dose 2022-0 No Unknown 4-04 00:00: 00 Dose 2022-0 No Unknown 4-04 00:00: 00 Dose 2022-0 No Unknown 4-04 00:00: 00 Dose 2022-0 No Unknown 4-04 00:00: 00 ProAir HFA 2022-0 No 1mcg/ac 90 4-04 tuation mcg/actuati 00:00: on aerosol 00 inhaler ProAir HFA 2022-0 No 1mcg/ac 90 4-04 tuation mcg/actuati 00:00: on aerosol 00 inhaler ibuprofen 2022-0 No 1mg 800 mg 4-04 tablet 00:00: 00 ibuprofen 2022-0 No 1mg 800 mg 4-04 tablet 00:00: 00 prednisone 2022-0 No mg 20 mg 4-04 tablet 00:00: 00 prednisone 2022-0 No mg 20 mg 4-04 tablet 00:00: 00 Bromfed DM 2022-0 No 10mg/5 2 mg-30 4-04 mL mg-10 mg/5 00:00: mL oral 00 syrup Bromfed DM 2022-0 No 10mg/5 2 mg-30 4-04 mL mg-10 mg/5 00:00: mL oral 00 syrup Dose 2022-0 No Unknown 4-04 00:00: 00 Dose 2022-0 No Unknown 4-04 00:00: 00 Dose 2022-0 No Unknown 4-04 00:00: 00 Dose 2022-0 No Unknown 4-04 00:00: 00 Dose 2022-0 No Unknown 4-04 00:00: 00 Dose 2022-0 No Unknown 4-04 00:00: 00 Dose 2022-0 No Unknown 4-04 00:00: 00 Dose 2022-0 No Unknown 4-04 00:00: 00 Dose 2022-0 No Unknown 4-04 00:00: 00 Dose 2022-0 No Unknown 4-04 00:00: 00 Dose 2022-0 No Unknown 4-04 00:00: 00 Dose 2022-0 No Unknown 4-04 00:00: 00 Dose 2022-0 No Unknown 4-04 00:00: 00 Dose 2022-0 No Unknown 4-04 00:00: 00 Dose 2022-0 No Unknown 4-04 00:00: 00 Dose 2022-0 No Unknown 4-04 00:00: 00 Dose 2022-0 No Unknown 4-04 00:00: 00 Dose 2022-0 No Unknown 4-04 00:00: 00 Dose 2022-0 No Unknown 4-04 00:00: 00 Dose 2022-0 No Unknown 4-04 00:00: 00 Dose 2022-0 No Unknown 4-04 00:00: 00 Dose 2022-0 No Unknown 4-04 00:00: 00 Dose 2022-0 No Unknown 4-04 00:00: 00 Dose 2022-0 No Unknown 4-04 00:00: 00 Dose 2022-0 No Unknown 4-04 00:00: 00 Dose 2022-0 No Unknown 4-04 00:00: 00 Dose 2022-0 No Unknown 4-04 00:00: 00 Dose 2022-0 No Unknown 4-04 00:00: 00 Dose 2022-0 No Unknown 4-04 00:00: 00 Dose 2022-0 No Unknown 4-04 00:00: 00 Dose 2022-0 No Unknown 4-04 00:00: 00 Dose 2022-0 No Unknown 4-04 00:00: 00 Dose 2022-0 No Unknown 4-04 00:00: 00 Dose 2022-0 No Unknown 4-04 00:00: 00 Dose 2022-0 No Unknown 4-04 00:00: 00 Dose 2022-0 No Unknown 4-04 00:00: 00 Dose 2022-0 No Unknown 4-04 00:00: 00 Dose 2022-0 No Unknown 4-04 00:00: 00 Dose 2022-0 No Unknown 4-04 00:00: 00 Dose 2022-0 No Unknown 4-04 00:00: 00 Dose 2022-0 No Unknown 4-04 00:00: 00 Dose 2022-0 No Unknown 4-04 00:00: 00 Dose 2022-0 No Unknown 4-04 00:00: 00 Dose 2022-0 No Unknown 4-04 00:00: 00 Dose 2022-0 No Unknown 4-04 00:00: 00 Dose 2022-0 No Unknown 4-04 00:00: 00 Dose 2022-0 No Unknown 4-04 00:00: 00 Dose 2022-0 No Unknown 4-04 00:00: 00 Dose 2022-0 No Unknown 4-04 00:00: 00 Dose 2022-0 No Unknown 4-04 00:00: 00 Dose 2022-0 No Unknown 4-04 00:00: 00 Dose 2022-0 No Unknown 4-04 00:00: 00 Dose 2022-0 No Unknown 4-04 00:00: 00 Dose 2022-0 No Unknown 4-04 00:00: 00 Dose 2022-0 No Unknown 4-04 00:00: 00 Dose 2022-0 No Unknown 4-04 00:00: 00 Dose 2022-0 No Unknown 4-04 00:00: 00 Dose 2022-0 No Unknown 4-04 00:00: 00 Dose 2022-0 No Unknown 4-04 00:00: 00 Dose 2022-0 No Unknown 4-04 00:00: 00 Dose 2022-0 No Unknown 4-04 00:00: 00 Dose 2022-0 No Unknown 4-04 00:00: 00 Dose 2022-0 No Unknown 4-04 00:00: 00 Dose 2022-0 No Unknown 4-04 00:00: 00 Dose 2022-0 No Unknown 4-04 00:00: 00 Dose 2022-0 No Unknown 4-04 00:00: 00 Dose 2022-0 No Unknown 4-04 00:00: 00 Dose 2022-0 No Unknown 4-04 00:00: 00 Dose 2022-0 No Unknown 4-04 00:00: 00 Dose 2022-0 No Unknown 4-04 00:00: 00 Dose 2022-0 No Unknown 4-04 00:00: 00 Dose 2022-0 No Unknown 4-04 00:00: 00 ProAir HFA 2022-0 No 1mcg/ac 90 4-04 tuation mcg/actuati 00:00: on aerosol 00 inhaler ProAir HFA 2022-0 No 1mcg/ac 90 4-04 tuation mcg/actuati 00:00: on aerosol 00 inhaler ibuprofen 2022-0 No 1mg 800 mg 4-04 tablet 00:00: 00 ibuprofen 2022-0 No 1mg 800 mg 4-04 tablet 00:00: 00 prednisone 2022-0 No mg 20 mg 4-04 tablet 00:00: 00 prednisone 2022-0 No mg 20 mg 4-04 tablet 00:00: 00 Bromfed DM 2022-0 No 10mg/5 2 mg-30 4-04 mL mg-10 mg/5 00:00: mL oral 00 syrup Bromfed DM 2022-0 No 10mg/5 2 mg-30 4-04 mL mg-10 mg/5 00:00: mL oral 00 syrup Dose 2022-0 No Unknown 4-04 00:00: 00 Dose 2022-0 No Unknown 4-04 00:00: 00 Dose 2022-0 No Unknown 4-04 00:00: 00 Dose 2022-0 No Unknown 4-04 00:00: 00 Dose 2022-0 No Unknown 4-04 00:00: 00 Dose 2022-0 No Unknown 4-04 00:00: 00 Dose 2022-0 No Unknown 4-04 00:00: 00 Dose 2022-0 No Unknown 4-04 00:00: 00 Dose 2022-0 No Unknown 4-04 00:00: 00 Dose 2022-0 No Unknown 4-04 00:00: 00 Dose 2022-0 No Unknown 4-04 00:00: 00 Dose 2022-0 No Unknown 4-04 00:00: 00 Dose 2022-0 No Unknown 4-04 00:00: 00 Dose 2022-0 No Unknown 4-04 00:00: 00 Dose 2022-0 No Unknown 4-04 00:00: 00 Dose 2022-0 No Unknown 4-04 00:00: 00 Dose 2022-0 No Unknown 4-04 00:00: 00 Dose 2022-0 No Unknown 4-04 00:00: 00 Dose 2022-0 No Unknown 4-04 00:00: 00 Dose 2022-0 No Unknown 4-04 00:00: 00 Dose 2022-0 No Unknown 4-04 00:00: 00 Dose 2022-0 No Unknown 4-04 00:00: 00 Dose 2022-0 No Unknown 4-04 00:00: 00 Dose 2022-0 No Unknown 4-04 00:00: 00 Dose 2022-0 No Unknown 4-04 00:00: 00 Dose 2022-0 No Unknown 4-04 00:00: 00 Dose 2022-0 No Unknown 4-04 00:00: 00 Dose 2022-0 No Unknown 4-04 00:00: 00 Dose 2022-0 No Unknown 4-04 00:00: 00 Dose 2022-0 No Unknown 4-04 00:00: 00 Dose 2022-0 No Unknown 4-04 00:00: 00 Dose 2022-0 No Unknown 4-04 00:00: 00 Dose 2022-0 No Unknown 4-04 00:00: 00 Dose 2022-0 No Unknown 4-04 00:00: 00 Dose 2022-0 No Unknown 4-04 00:00: 00 Dose 2022-0 No Unknown 4-04 00:00: 00 Dose 2022-0 No Unknown 4-04 00:00: 00 Dose 2022-0 No Unknown 4-04 00:00: 00 Dose 2022-0 No Unknown 4-04 00:00: 00 Dose 2022-0 No Unknown 4-04 00:00: 00 Dose 2022-0 No Unknown 4-04 00:00: 00 Dose 2022-0 No Unknown 4-04 00:00: 00 Dose 2022-0 No Unknown 4-04 00:00: 00 Dose 2022-0 No Unknown 4-04 00:00: 00 Dose 2022-0 No Unknown 4-04 00:00: 00 Dose 2022-0 No Unknown 4-04 00:00: 00 Dose 2022-0 No Unknown 4-04 00:00: 00 Dose 2022-0 No Unknown 4-04 00:00: 00 Dose 2022-0 No Unknown 4-04 00:00: 00 Dose 2022-0 No Unknown 4-04 00:00: 00 Dose 2022-0 No Unknown 4-04 00:00: 00 Dose 2022-0 No Unknown 4-04 00:00: 00 Dose 2022-0 No Unknown 4-04 00:00: 00 Dose 2022-0 No Unknown 4-04 00:00: 00 Dose 2022-0 No Unknown 4-04 00:00: 00 Dose 2022-0 No Unknown 3-16 00:00: 00 Dose 2022-0 No Unknown 3-16 00:00: 00 Dose 2022-0 No Unknown 3-16 00:00: 00 Dose 2022-0 No Unknown 3-16 00:00: 00 Dose 2022-0 No Unknown 3-16 00:00: 00 Dose 2022-0 No Unknown 3-16 00:00: 00 Dose 2022-0 No Unknown 3-16 00:00: 00 Dose 2022-0 No Unknown 3-16 00:00: 00 Dose 2022-0 No Unknown 3-16 00:00: 00 Dose 2022-0 No Unknown 3-16 00:00: 00 Dose 2022-0 No Unknown 3-16 00:00: 00 Dose 2022-0 No Unknown 3-16 00:00: 00 Dose 2022-0 No Unknown 3-16 00:00: 00 Dose 2022-0 No Unknown 3-16 00:00: 00 Dose 2022-0 No Unknown 3-16 00:00: 00 Dose 2022-0 No Unknown 3-16 00:00: 00 Dose 2022-0 No Unknown 3-16 00:00: 00 Dose 2022-0 No Unknown 3-16 00:00: 00 Dose 2022-0 No Unknown 3-16 00:00: 00 Dose 2022-0 No Unknown 3-16 00:00: 00 Dose 2022-0 No Unknown 3-16 00:00: 00 Dose 2022-0 No Unknown 3-16 00:00: 00 Dose 2022-0 No Unknown 3-16 00:00: 00 Dose 2022-0 No Unknown 3-16 00:00: 00 Dose 2022-0 No Unknown 3-16 00:00: 00 Dose 2022-0 No Unknown 3-16 00:00: 00 Dose 2022-0 No Unknown 3-16 00:00: 00 Dose 2022-0 No Unknown 3-16 00:00: 00 Dose 2022-0 No Unknown 3-16 00:00: 00 Dose 2022-0 No Unknown 3-16 00:00: 00 Dose 2022-0 No Unknown 3-16 00:00: 00 Dose 2022-0 No Unknown 3-16 00:00: 00 Dose 2022-0 No Unknown 3-16 00:00: 00 Dose 2022-0 No Unknown 3-16 00:00: 00 Dose 2022-0 No Unknown 3-16 00:00: 00 Dose 2022-0 No Unknown 3-16 00:00: 00 Dose 2022-0 No Unknown 3-16 00:00: 00 Dose 2022-0 No Unknown 3-16 00:00: 00 Dose 2022-0 No Unknown 3-16 00:00: 00 Dose 2022-0 No Unknown 3-16 00:00: 00 Dose 2022-0 No Unknown 3-16 00:00: 00 Dose 2022-0 No Unknown 3-16 00:00: 00 Dose 2022-0 No Unknown 3-16 00:00: 00 Dose 2022-0 No Unknown 3-16 00:00: 00 Dose 2022-0 No Unknown 3-16 00:00: 00 Dose 2022-0 No Unknown 3-16 00:00: 00 Dose 2022-0 No Unknown 3-16 00:00: 00 Dose 2022-0 No Unknown 3-16 00:00: 00 Dose 2022-0 No Unknown 3-16 00:00: 00 Dose 2022-0 No Unknown 3-16 00:00: 00 Dose 2022-0 No Unknown 3-16 00:00: 00 Dose 2022-0 No Unknown 3-16 00:00: 00 Dose 2022-0 No Unknown 3-16 00:00: 00 Dose 2022-0 No Unknown 3-16 00:00: 00 Dose 2022-0 No Unknown 3-16 00:00: 00 Dose 2022-0 No Unknown 3-16 00:00: 00 Dose 2022-0 No Unknown 3-16 00:00: 00 Dose 2022-0 No Unknown 3-16 00:00: 00 Dose 2022-0 No Unknown 3-16 00:00: 00 Dose 2022-0 No Unknown 3-16 00:00: 00 Dose 2022-0 No Unknown 3-16 00:00: 00 Dose 2022-0 No Unknown 3-16 00:00: 00 Dose 2022-0 No Unknown 3-16 00:00: 00 Dose 2022-0 No Unknown 3-16 00:00: 00 Dose 2022-0 No Unknown 3-16 00:00: 00 Dose 2022-0 No Unknown 3-16 00:00: 00 Dose 2022-0 No Unknown 3-16 00:00: 00 Dose 2022-0 No Unknown 3-16 00:00: 00 Dose 2022-0 No Unknown 3-16 00:00: 00 Dose 2022-0 No Unknown 3-16 00:00: 00 Dose 2022-0 No Unknown 3-16 00:00: 00 Dose 2022-0 No Unknown 3-16 00:00: 00 Dose 2022-0 No Unknown 3-16 00:00: 00 Dose 2022-0 No Unknown 3-16 00:00: 00 Dose 2022-0 No Unknown 3-16 00:00: 00 Dose 2022-0 No Unknown 3-16 00:00: 00 Dose 2022-0 No Unknown 3-16 00:00: 00 Dose 2022-0 No Unknown 3-16 00:00: 00 Dose 2022-0 No Unknown 3-16 00:00: 00 Dose 2022-0 No Unknown 3-16 00:00: 00 Dose 2022-0 No Unknown 3-16 00:00: 00 Dose 2022-0 No Unknown 3-16 00:00: 00 Dose 2022-0 No Unknown 3-16 00:00: 00 Dose 2022-0 No Unknown 3-16 00:00: 00 Dose 2022-0 No Unknown 3-16 00:00: 00 Dose 2022-0 No Unknown 3-16 00:00: 00 Dose 2022-0 No Unknown 3-16 00:00: 00 Dose 2022-0 No Unknown 3-16 00:00: 00 Dose 2022-0 No Unknown 3-16 00:00: 00 Dose 2022-0 No Unknown 3-16 00:00: 00 Dose 2022-0 No Unknown 3-16 00:00: 00 Dose 2022-0 No Unknown 3-16 00:00: 00 Dose 2022-0 No Unknown 3-16 00:00: 00 Dose 2022-0 No Unknown 3-16 00:00: 00 Dose 2022-0 No Unknown 3-16 00:00: 00 Dose 2022-0 No Unknown 3-16 00:00: 00 Dose 2022-0 No Unknown 3-16 00:00: 00 Dose 2022-0 No Unknown 3-16 00:00: 00 Dose 2022-0 No Unknown 3-16 00:00: 00 Dose 2022-0 No Unknown 3-16 00:00: 00 Dose 2022-0 No Unknown 3-16 00:00: 00 Dose 2022-0 No Unknown 3-16 00:00: 00 Dose 2022-0 No Unknown 3-16 00:00: 00 Dose 2022-0 No Unknown 3-16 00:00: 00 Dose 2022-0 No Unknown 3-16 00:00: 00 Dose 2022-0 No Unknown 3-16 00:00: 00 Dose 2022-0 No Unknown 3-16 00:00: 00 Dose 2022-0 No Unknown 3-16 00:00: 00 Dose 2022-0 No Unknown 3-16 00:00: 00 Dose 2022-0 No Unknown 3-16 00:00: 00 Dose 2022-0 No Unknown 3-16 00:00: 00 Dose 2022-0 No Unknown 3-16 00:00: 00 Dose 2022-0 No Unknown 3-16 00:00: 00 Dose 2022-0 No Unknown 3-16 00:00: 00 Dose 2022-0 No Unknown 3-16 00:00: 00 Dose 2022-0 No Unknown 3-16 00:00: 00 Dose 2022-0 No Unknown 3-16 00:00: 00 Dose 2022-0 No Unknown 3-16 00:00: 00 Dose 2022-0 No Unknown 3-16 00:00: 00 Dose 2022-0 No Unknown 3-16 00:00: 00 Dose 2022-0 No Unknown 3-16 00:00: 00 Dose 2022-0 No Unknown 3-16 00:00: 00 Dose 2022-0 No Unknown 3-16 00:00: 00 Dose 2022-0 No Unknown 3-16 00:00: 00 Dose 2022-0 No Unknown 3-16 00:00: 00 Dose 2022-0 No Unknown 3-16 00:00: 00 Dose 2022-0 No Unknown 3-16 00:00: 00 Dose 2022-0 No Unknown 3-16 00:00: 00 Dose 2022-0 No Unknown 3-16 00:00: 00 Dose 2022-0 No Unknown 3-16 00:00: 00 Dose 2022-0 No Unknown 3-16 00:00: 00 Dose 2022-0 No Unknown 3-16 00:00: 00 Dose 2022-0 No Unknown 3-16 00:00: 00 Dose 2022-0 No Unknown 3-16 00:00: 00 Dose 2022-0 No Unknown 3-16 00:00: 00 Dose 2022-0 No Unknown 3-16 00:00: 00 Dose 2022-0 No Unknown 3-16 00:00: 00 Dose 2022-0 No Unknown 3-16 00:00: 00 Dose 2022-0 No Unknown 3-16 00:00: 00 Dose 2022-0 No Unknown 3-16 00:00: 00 Dose 2022-0 No Unknown 3-16 00:00: 00 Dose 2022-0 No Unknown 3-16 00:00: 00 Dose 2022-0 No Unknown 3-16 00:00: 00 Dose 2022-0 No Unknown 3-16 00:00: 00 Dose 2022-0 No Unknown 3-16 00:00: 00 Dose 2022-0 No Unknown 3-16 00:00: 00 Dose 2022-0 No Unknown 3-16 00:00: 00 Dose 2022-0 No Unknown 3-16 00:00: 00 Dose 2022-0 No Unknown 3-16 00:00: 00 Dose 2022-0 No Unknown 3-16 00:00: 00 Dose 2022-0 No Unknown 3-16 00:00: 00 Dose 2022-0 No Unknown 3-16 00:00: 00 Dose 2022-0 No Unknown 3-16 00:00: 00 Dose 2022-0 No Unknown 3-16 00:00: 00 Dose 2022-0 No Unknown 3-16 00:00: 00 Dose 2022-0 No Unknown 3-16 00:00: 00 Dose 2022-0 No Unknown 3-16 00:00: 00 Dose 2022-0 No Unknown 3-16 00:00: 00 Dose 2022-0 No Unknown 3-16 00:00: 00 Dose 2022-0 No Unknown 3-16 00:00: 00 Dose 2022-0 No Unknown 3-16 00:00: 00 Dose 2022-0 No Unknown 3-16 00:00: 00 Dose 2022-0 No Unknown 3-16 00:00: 00 Dose 2022-0 No Unknown 3-16 00:00: 00 Dose 2022-0 No Unknown 3-16 00:00: 00 Dose 2022-0 No Unknown 3-16 00:00: 00 Dose 2022-0 No Unknown 3-16 00:00: 00 Dose 2022-0 No Unknown 3-16 00:00: 00 Dose 2022-0 No Unknown 3-16 00:00: 00 Dose 2022-0 No Unknown 3-16 00:00: 00 Dose 2022-0 No Unknown 3-16 00:00: 00 Dose 2022-0 No Unknown 3-16 00:00: 00 Dose 2022-0 No Unknown 3-16 00:00: 00 Dose 2022-0 No Unknown 3-16 00:00: 00 Dose 2022-0 No Unknown 3-16 00:00: 00 Dose 2022-0 No Unknown 3-16 00:00: 00 Dose 2022-0 No Unknown 3-16 00:00: 00 Dose 2022-0 No Unknown 3-16 00:00: 00 Dose 2022-0 No Unknown 3-16 00:00: 00 Dose 2022-0 No Unknown 3-16 00:00: 00 Dose 2022-0 No Unknown 3-16 00:00: 00 Dose 2022-0 No Unknown 3-16 00:00: 00 Dose 2022-0 No Unknown 3-16 00:00: 00 Dose 2022-0 No Unknown 3-16 00:00: 00 Dose 2022-0 No Unknown 3-16 00:00: 00 Dose 2022-0 No Unknown 3-16 00:00: 00 Dose 2022-0 No Unknown 3-16 00:00: 00 Dose 2022-0 No Unknown 3-16 00:00: 00 Dose 2022-0 No Unknown 3-16 00:00: 00 Dose 2022-0 No Unknown 3-16 00:00: 00 Dose 2022-0 No Unknown 3-16 00:00: 00 Dose 2022-0 No Unknown 3-16 00:00: 00 Dose 2022-0 No Unknown 3-16 00:00: 00 Dose 2022-0 No Unknown 3-16 00:00: 00 Dose 2022-0 No Unknown 3-16 00:00: 00 Dose 2022-0 No Unknown 3-16 00:00: 00 Dose 2022-0 No Unknown 3-16 00:00: 00 Dose 2022-0 No Unknown 3-16 00:00: 00 Dose 2022-0 No Unknown 3-16 00:00: 00 Dose 2022-0 No Unknown 3-16 00:00: 00 Dose 2022-0 No Unknown 3-16 00:00: 00 Dose 2022-0 No Unknown 3-16 00:00: 00 Dose 2022-0 No Unknown 3-16 00:00: 00 Dose 2022-0 No Unknown 3-16 00:00: 00 Dose 2022-0 No Unknown 3-16 00:00: 00 Dose 2022-0 No Unknown 3-16 00:00: 00 Dose 2022-0 No Unknown 3-16 00:00: 00 Dose 2022-0 No Unknown 3-16 00:00: 00 Dose 2022-0 No Unknown 3-16 00:00: 00 Dose 2022-0 No Unknown 3-16 00:00: 00 Dose 2022-0 No Unknown 3-16 00:00: 00 Dose 2022-0 No Unknown 3-16 00:00: 00 Dose 2022-0 No Unknown 3-16 00:00: 00 Dose 2022-0 No Unknown 3-16 00:00: 00 Dose 2022-0 No Unknown 3-16 00:00: 00 Dose 2022-0 No Unknown 3-16 00:00: 00 Dose 2022-0 No Unknown 3-16 00:00: 00 Dose 2022-0 No Unknown 3-16 00:00: 00 Dose 2022-0 No Unknown 3-16 00:00: 00 Dose 2022-0 No Unknown 3-16 00:00: 00 Dose 2022-0 No Unknown 3-16 00:00: 00 Dose 2022-0 No Unknown 3-16 00:00: 00 Dose 2022-0 No Unknown 3-16 00:00: 00 Dose 2022-0 No Unknown 3-16 00:00: 00 Dose 2022-0 No Unknown 3-16 00:00: 00 Dose 2022-0 No Unknown 3-16 00:00: 00 Dose 2022-0 No Unknown 3-16 00:00: 00 Dose 2022-0 No Unknown 3-16 00:00: 00 Dose 2022-0 No Unknown 3-16 00:00: 00 Dose 2022-0 No Unknown 3-16 00:00: 00 Dose 2022-0 No Unknown 3-16 00:00: 00 Dose 2022-0 No Unknown 3-16 00:00: 00 Dose 2022-0 No Unknown 3-16 00:00: 00 Dose 2022-0 No Unknown 3-16 00:00: 00 Dose 2022-0 No Unknown 3-16 00:00: 00 Dose 2022-0 No Unknown 3-16 00:00: 00 Dose 2022-0 No Unknown 3-16 00:00: 00 Dose 2022-0 No Unknown 3-16 00:00: 00 Dose 2022-0 No Unknown 3-16 00:00: 00 Dose 2022-0 No Unknown 3-16 00:00: 00 Dose 2022-0 No Unknown 3-16 00:00: 00 Dose 2022-0 No Unknown 3-16 00:00: 00 Dose 2022-0 No Unknown 3-16 00:00: 00 Dose 2022-0 No Unknown 3-16 00:00: 00 Dose 2022-0 No Unknown 3-16 00:00: 00 Dose 2022-0 No Unknown 3-16 00:00: 00 Dose 2022-0 No Unknown 3-16 00:00: 00 Dose 2022-0 No Unknown 3-16 00:00: 00 Dose 2022-0 No Unknown 3-16 00:00: 00 Dose 2022-0 No Unknown 3-16 00:00: 00 Dose 2022-0 No Unknown 3-16 00:00: 00 Dose 2022-0 No Unknown 3-16 00:00: 00 Dose 2022-0 No Unknown 3-16 00:00: 00 Dose 2022-0 No Unknown 3-16 00:00: 00 Dose 2022-0 No Unknown 3-16 00:00: 00 Dose 2022-0 No Unknown 3-16 00:00: 00 Dose 2022-0 No Unknown 3-16 00:00: 00 Dose 2022-0 No Unknown 3-16 00:00: 00 Dose 2022-0 No Unknown 3-16 00:00: 00 Dose 2022-0 No Unknown 3-16 00:00: 00 Dose 2022-0 No Unknown 3-16 00:00: 00 Dose 2022-0 No Unknown 3-16 00:00: 00 Dose 2022-0 No Unknown 3-16 00:00: 00 Dose 2022-0 No Unknown 3-16 00:00: 00 Dose 2022-0 No Unknown 3-16 00:00: 00 Dose 2022-0 No Unknown 3-16 00:00: 00 Dose 2022-0 No Unknown 3-16 00:00: 00 Dose 2022-0 No Unknown 3-16 00:00: 00 Dose 2022-0 No Unknown 3-16 00:00: 00 Dose 2022-0 No Unknown 3-16 00:00: 00 Dose 2022-0 No Unknown 3-16 00:00: 00 Dose 2022-0 No Unknown 3-16 00:00: 00 Dose 2022-0 No Unknown 3-16 00:00: 00 Dose 2022-0 No Unknown 3-16 00:00: 00 Dose 2022-0 No Unknown 3-16 00:00: 00 Dose 2022-0 No Unknown 3-16 00:00: 00 Dose 2022-0 No Unknown 3-16 00:00: 00 Dose 2022-0 No Unknown 3-16 00:00: 00 Dose 2022-0 No Unknown 3-16 00:00: 00 Dose 2022-0 No Unknown 3-16 00:00: 00 Dose 2022-0 No Unknown 3-16 00:00: 00 Dose 2022-0 No Unknown 3-16 00:00: 00 Dose 2022-0 No Unknown 3-16 00:00: 00 Dose 2022-0 No Unknown 3-16 00:00: 00 Dose 2022-0 No Unknown 3-16 00:00: 00 Dose 2022-0 No Unknown 3-16 00:00: 00 Dose 2022-0 No Unknown 3-16 00:00: 00 Dose 2022-0 No Unknown 3-16 00:00: 00 Dose 2022-0 No Unknown 3-16 00:00: 00 Dose 2022-0 No Unknown 3-16 00:00: 00 Dose 2022-0 No Unknown 3-16 00:00: 00 Dose 2022-0 No Unknown 3-16 00:00: 00 Dose 2022-0 No Unknown 3-16 00:00: 00 Dose 2022-0 No Unknown 3-16 00:00: 00 Dose 2022-0 No Unknown 3-16 00:00: 00 Dose 2022-0 No Unknown 3-16 00:00: 00 Dose 2022-0 No Unknown 3-16 00:00: 00 Dose 2022-0 No Unknown 3-16 00:00: 00 Dose 2022-0 No Unknown 3-16 00:00: 00 Dose 2022-0 No Unknown 3-16 00:00: 00 Dose 2022-0 No Unknown 3-16 00:00: 00 Dose 2022-0 No Unknown 3-16 00:00: 00 Dose 2022-0 No Unknown 3-16 00:00: 00 Dose 2022-0 No Unknown 3-16 00:00: 00 Dose 2022-0 No Unknown 3-16 00:00: 00 Dose 2022-0 No Unknown 3-16 00:00: 00 Dose 2022-0 No Unknown 3-16 00:00: 00 Dose 2022-0 No Unknown 3-16 00:00: 00 Dose 2022-0 No Unknown 3-16 00:00: 00 Dose 2022-0 No Unknown 3-16 00:00: 00 Dose 2022-0 No Unknown 3-16 00:00: 00 Dose 2022-0 No Unknown 3-16 00:00: 00 Dose 2022-0 No Unknown 3-16 00:00: 00 Dose 2022-0 No Unknown 3-16 00:00: 00 Dose 2022-0 No Unknown 3-16 00:00: 00 Dose 2022-0 No Unknown 3-16 00:00: 00 Dose 2022-0 No Unknown 3-16 00:00: 00 Dose 2022-0 No Unknown 3-16 00:00: 00 Dose 2022-0 No Unknown 3-16 00:00: 00 Dose 2022-0 No Unknown 3-16 00:00: 00 Dose 2022-0 No Unknown 3-16 00:00: 00 Dose 2022-0 No Unknown 3-16 00:00: 00 Dose 2022-0 No Unknown 3-16 00:00: 00 Dose 2022-0 No Unknown 3-16 00:00: 00 Dose 2022-0 No Unknown 3-16 00:00: 00 Dose 2022-0 No Unknown 3-16 00:00: 00 Dose 2022-0 No Unknown 3-16 00:00: 00 Dose 2022-0 No Unknown 3-16 00:00: 00 Dose 2022-0 No Unknown 3-16 00:00: 00 Dose 2022-0 No Unknown 3-16 00:00: 00 Dose 2022-0 No Unknown 3-16 00:00: 00 Dose 2022-0 No Unknown 3-16 00:00: 00 Dose 2022-0 No Unknown 3-16 00:00: 00 Dose 2022-0 No Unknown 3-16 00:00: 00 Dose 2022-0 No Unknown 3-16 00:00: 00 Dose 2022-0 No Unknown 3-16 00:00: 00 Dose 2022-0 No Unknown 3-16 00:00: 00 Dose 2022-0 No Unknown 3-16 00:00: 00 Dose 2022-0 No Unknown 3-16 00:00: 00 Dose 2022-0 No Unknown 3-16 00:00: 00 Dose 2022-0 No Unknown 3-16 00:00: 00 Dose 2022-0 No Unknown 3-16 00:00: 00 Dose 2022-0 No Unknown 3-16 00:00: 00 Dose 2022-0 No Unknown 3-16 00:00: 00 Dose 2022-0 No Unknown 3-16 00:00: 00 Dose 2022-0 No Unknown 3-16 00:00: 00 Dose 2022-0 No Unknown 3-16 00:00: 00 Dose 2022-0 No Unknown 3-16 00:00: 00 Dose 2022-0 No Unknown 3-16 00:00: 00 Dose 2022-0 No Unknown 3-16 00:00: 00 Dose 2022-0 No Unknown 3-16 00:00: 00 Dose 2022-0 No Unknown 3-16 00:00: 00 Dose 2022-0 No Unknown 3-16 00:00: 00 Dose 2022-0 No Unknown 3-16 00:00: 00 Dose 2022-0 No Unknown 3-16 00:00: 00 Dose 2022-0 No Unknown 3-16 00:00: 00 Dose 2022-0 No Unknown 3-16 00:00: 00 Dose 2022-0 No Unknown 3-16 00:00: 00 Dose 2022-0 No Unknown 3-16 00:00: 00 Dose 2022-0 No Unknown 3-16 00:00: 00 Dose 2022-0 No Unknown 3-16 00:00: 00 Dose 2022-0 No Unknown 3-16 00:00: 00 Dose 2022-0 No Unknown 3-16 00:00: 00 Dose 2022-0 No Unknown 3-16 00:00: 00 Dose 2022-0 No Unknown 3-16 00:00: 00 Dose 2022-0 No Unknown 3-16 00:00: 00 Dose 2022-0 No Unknown 3-16 00:00: 00 Dose 2022-0 No Unknown 3-16 00:00: 00 Dose 2022-0 No Unknown 3-16 00:00: 00 Dose 2022-0 No Unknown 3-16 00:00: 00 Dose 2022-0 No Unknown 3-16 00:00: 00 Dose 2022-0 No Unknown 3-16 00:00: 00 Dose 2022-0 No Unknown 3-16 00:00: 00 Dose 2022-0 No Unknown 3-16 00:00: 00 Dose 2022-0 No Unknown 3-16 00:00: 00 Dose 2022-0 No Unknown 3-16 00:00: 00 Dose 2022-0 No Unknown 3-16 00:00: 00 Dose 2022-0 No Unknown 3-16 00:00: 00 Dose 2022-0 No Unknown 3-16 00:00: 00 Dose 2022-0 No Unknown 3-16 00:00: 00 Dose 2022-0 No Unknown 3-16 00:00: 00 Dose 2022-0 No Unknown 3-16 00:00: 00 Dose 2022-0 No Unknown 3-16 00:00: 00 Dose 2022-0 No Unknown 3-16 00:00: 00 Dose 2022-0 No Unknown 3-16 00:00: 00 Dose 2022-0 No Unknown 3-16 00:00: 00 Dose 2022-0 No Unknown 3-16 00:00: 00 Dose 2022-0 No Unknown 3-16 00:00: 00 Dose 2022-0 No Unknown 3-16 00:00: 00 Dose 2022-0 No Unknown 3-16 00:00: 00 Dose 2022-0 No Unknown 3-16 00:00: 00 Dose 2022-0 No Unknown 3-16 00:00: 00 Dose 2022-0 No Unknown 3-16 00:00: 00 Dose 2022-0 No Unknown 3-16 00:00: 00 Dose 2022-0 No Unknown 3-16 00:00: 00 Dose 2022-0 No Unknown 3-16 00:00: 00 Dose 2022-0 No Unknown 3-16 00:00: 00 Dose 2022-0 No Unknown 3-16 00:00: 00 Dose 2022-0 No Unknown 3-16 00:00: 00 Dose 2022-0 No Unknown 3-16 00:00: 00 Dose 2022-0 No Unknown 3-16 00:00: 00 Dose 2022-0 No Unknown 3-16 00:00: 00 Dose 2022-0 No Unknown 3-16 00:00: 00 Dose 2022-0 No Unknown 3-16 00:00: 00 Dose 2022-0 No Unknown 3-16 00:00: 00 Dose 2022-0 No Unknown 3-16 00:00: 00 Dose 2022-0 No Unknown 3-16 00:00: 00 Dose 2022-0 No Unknown 3-16 00:00: 00 Dose 2022-0 No Unknown 3-16 00:00: 00 Dose 2022-0 No Unknown 3-16 00:00: 00 Dose 2022-0 No Unknown 3-16 00:00: 00 Dose 2022-0 No Unknown 3-16 00:00: 00 Dose 2022-0 No Unknown 3-16 00:00: 00 Dose 2022-0 No Unknown 3-16 00:00: 00 Dose 2022-0 No Unknown 3-16 00:00: 00 Dose 2022-0 No Unknown 3-16 00:00: 00 Dose 2022-0 No Unknown 3-16 00:00: 00 Dose 2022-0 No Unknown 3-16 00:00: 00 Dose 2022-0 No Unknown 3-16 00:00: 00 Dose 2022-0 No Unknown 3-16 00:00: 00 Dose 2022-0 No Unknown 3-16 00:00: 00 Dose 2022-0 No Unknown 3-16 00:00: 00 Dose 2022-0 No Unknown 3-16 00:00: 00 Dose 2022-0 No Unknown 3-16 00:00: 00 Dose 2022-0 No Unknown 3-16 00:00: 00 Dose 2022-0 No Unknown 3-16 00:00: 00 Dose 2022-0 No Unknown 3-16 00:00: 00 Dose 2022-0 No Unknown 3-16 00:00: 00 Dose 2022-0 No Unknown 3-16 00:00: 00 Dose 2022-0 No Unknown 3-16 00:00: 00 Dose 2022-0 No Unknown 3-16 00:00: 00 Dose 2022-0 No Unknown 3-16 00:00: 00 Dose 2022-0 No Unknown 3-16 00:00: 00 Dose 2022-0 No Unknown 3-16 00:00: 00 Dose 2022-0 No Unknown 3-16 00:00: 00 Dose 2022-0 No Unknown 3-16 00:00: 00 Dose 2022-0 No Unknown 3-16 00:00: 00 Dose 2022-0 No Unknown 3-16 00:00: 00 Dose 2022-0 No Unknown 3-16 00:00: 00 Dose 2022-0 No Unknown 3-16 00:00: 00 Dose 2022-0 No Unknown 3-16 00:00: 00 Dose 2022-0 No Unknown 3-16 00:00: 00 Dose 2022-0 No Unknown 3-16 00:00: 00 Dose 2022-0 No Unknown 3-16 00:00: 00 Dose 2022-0 No Unknown 3-16 00:00: 00 Dose 2022-0 No Unknown 3-16 00:00: 00 Dose 2022-0 No Unknown 3-16 00:00: 00 Dose 2022-0 No Unknown 3-16 00:00: 00 Dose 2022-0 No Unknown 3-16 00:00: 00 Dose 2022-0 No Unknown 3-16 00:00: 00 Dose 2022-0 No Unknown 3-16 00:00: 00 Dose 2022-0 No Unknown 3-16 00:00: 00 Dose 2022-0 No Unknown 3-16 00:00: 00 Dose 2022-0 No Unknown 3-16 00:00: 00 Dose 2022-0 No Unknown 3-16 00:00: 00 Dose 2022-0 No Unknown 3-16 00:00: 00 Dose 2022-0 No Unknown 3-16 00:00: 00 Dose 2022-0 No Unknown 3-16 00:00: 00 Dose 2022-0 No Unknown 3-16 00:00: 00 Dose 2022-0 No Unknown 3-16 00:00: 00 Dose 2022-0 No Unknown 3-16 00:00: 00 Dose 2022-0 No Unknown 3-16 00:00: 00 Dose 2022-0 No Unknown 3-16 00:00: 00 Dose 2022-0 No Unknown 3-16 00:00: 00 Dose 2022-0 No Unknown 3-16 00:00: 00 Dose 2022-0 No Unknown 3-16 00:00: 00 Dose 2022-0 No Unknown 3-16 00:00: 00 Dose 2022-0 No Unknown 3-16 00:00: 00 Dose 2022-0 No Unknown 3-16 00:00: 00 Dose 2022-0 No Unknown 3-16 00:00: 00 Dose 2022-0 No Unknown 3-16 00:00: 00 Dose 2022-0 No Unknown 3-16 00:00: 00 Dose 2022-0 No Unknown 3-16 00:00: 00 Dose 2022-0 No Unknown 3-16 00:00: 00 Dose 2022-0 No Unknown 3-16 00:00: 00 Dose 2022-0 No Unknown 3-16 00:00: 00 Dose 2022-0 No Unknown 3-16 00:00: 00 Dose 2022-0 No Unknown 3-16 00:00: 00 Dose 2022-0 No Unknown 3-16 00:00: 00 Dose 2022-0 No Unknown 3-16 00:00: 00 Dose 2022-0 No Unknown 3-16 00:00: 00 Dose 2022-0 No Unknown 3-16 00:00: 00 Dose 2022-0 No Unknown 3-16 00:00: 00 Dose 2022-0 No Unknown 3-16 00:00: 00 Dose 2022-0 No Unknown 3-16 00:00: 00 Dose 2022-0 No Unknown 3-16 00:00: 00 Dose 2022-0 No Unknown 3-16 00:00: 00 Dose 2022-0 No Unknown 3-16 00:00: 00 Dose 2022-0 No Unknown 3-16 00:00: 00 Dose 2022-0 No Unknown 3-16 00:00: 00 Dose 2022-0 No Unknown 3-16 00:00: 00 Dose 2022-0 No Unknown 3-16 00:00: 00 Dose 2022-0 No Unknown 3-16 00:00: 00 Dose 2022-0 No Unknown 3-16 00:00: 00 Dose 2022-0 No Unknown 3-16 00:00: 00 Dose 2022-0 No Unknown 3-16 00:00: 00 Dose 2022-0 No Unknown 3-16 00:00: 00 Dose 2022-0 No Unknown 3-16 00:00: 00 Dose 2022-0 No Unknown 3-16 00:00: 00 Dose 2022-0 No Unknown 3-16 00:00: 00 Dose 2022-0 No Unknown 3-16 00:00: 00 Dose 2022-0 No Unknown 3-16 00:00: 00 Dose 2022-0 No Unknown 3-16 00:00: 00 Dose 2022-0 No Unknown 3-16 00:00: 00 Dose 2022-0 No Unknown 3-16 00:00: 00 Dose 2022-0 No Unknown 3-16 00:00: 00 Dose 2022-0 No Unknown 3-16 00:00: 00 Dose 2022-0 No Unknown 3-16 00:00: 00 Dose 2022-0 No Unknown 3-16 00:00: 00 Dose 2022-0 No Unknown 3-16 00:00: 00 Dose 2022-0 No Unknown 3-16 00:00: 00 Dose 2022-0 No Unknown 3-16 00:00: 00 Dose 2022-0 No Unknown 3-16 00:00: 00 Dose 2022-0 No Unknown 3-16 00:00: 00 Dose 2022-0 No Unknown 3-16 00:00: 00 Dose 2022-0 No Unknown 3-16 00:00: 00 Dose 2022-0 No Unknown 3-16 00:00: 00 Dose 2022-0 No Unknown 3-16 00:00: 00 Dose 2022-0 No Unknown 3-16 00:00: 00 Dose 2022-0 No Unknown 3-16 00:00: 00 Dose 2022-0 No Unknown 3-16 00:00: 00 Dose 2022-0 No Unknown 3-16 00:00: 00 Dose 2022-0 No Unknown 3-16 00:00: 00 Dose 2022-0 No Unknown 3-16 00:00: 00 Dose 2022-0 No Unknown 3-16 00:00: 00 Dose 2022-0 No Unknown 3-16 00:00: 00 Dose 2022-0 No Unknown 3-16 00:00: 00 Dose 2022-0 No Unknown 3-16 00:00: 00 Dose 2022-0 No Unknown 3-16 00:00: 00 Dose 2022-0 No Unknown 3-16 00:00: 00 Dose 2022-0 No Unknown 3-16 00:00: 00 Dose 2022-0 No Unknown 3-16 00:00: 00 Dose 2022-0 No Unknown 3-16 00:00: 00 Dose 2022-0 No Unknown 3-16 00:00: 00 Dose 2022-0 No Unknown 3-16 00:00: 00 Dose 2022-0 No Unknown 3-16 00:00: 00 Dose 2022-0 No Unknown 3-16 00:00: 00 Dose 2022-0 No Unknown 3-16 00:00: 00 Dose 2022-0 No Unknown 3-16 00:00: 00 Dose 2022-0 No Unknown 3-16 00:00: 00 Dose 2022-0 No Unknown 3-16 00:00: 00 Dose 2022-0 No Unknown 3-16 00:00: 00 Dose 2022-0 No Unknown 3-16 00:00: 00 Dose 2022-0 No Unknown 3-16 00:00: 00 Dose 2022-0 No Unknown 3-16 00:00: 00 Dose 2022-0 No Unknown 3-16 00:00: 00 Dose 2022-0 No Unknown 3-16 00:00: 00 Dose 2022-0 No Unknown 3-16 00:00: 00 Dose 2022-0 No Unknown 3-16 00:00: 00 Dose 2022-0 No Unknown 3-16 00:00: 00 Dose 2022-0 No Unknown 3-16 00:00: 00 Dose 2022-0 No Unknown 3-16 00:00: 00 Dose 2022-0 No Unknown 3-16 00:00: 00 Dose 2022-0 No Unknown 3-16 00:00: 00 Dose 2022-0 No Unknown 3-16 00:00: 00 Dose 2022-0 No Unknown 3-16 00:00: 00 Dose 2022-0 No Unknown 3-16 00:00: 00 Dose 2022-0 No Unknown 3-16 00:00: 00 Dose 2022-0 No Unknown 3-16 00:00: 00 Dose 2022-0 No Unknown 3-16 00:00: 00 Dose 2022-0 No Unknown 3-16 00:00: 00 Dose 2022-0 No Unknown 3-16 00:00: 00 Dose 2022-0 No Unknown 3-16 00:00: 00 Dose 2022-0 No Unknown 3-16 00:00: 00 Dose 2022-0 No Unknown 3-16 00:00: 00 Dose 2022-0 No Unknown 3-16 00:00: 00 Dose 2022-0 No Unknown 3-16 00:00: 00 Dose 2022-0 No Unknown 3-16 00:00: 00 Dose 2022-0 No Unknown 3-16 00:00: 00 Dose 2022-0 No Unknown 3-16 00:00: 00 Dose 2022-0 No Unknown 3-16 00:00: 00 Dose 2022-0 No Unknown 3-16 00:00: 00 Dose 2022-0 No Unknown 3-16 00:00: 00 Dose 2022-0 No Unknown 3-16 00:00: 00 Dose 2022-0 No Unknown 3-16 00:00: 00 Dose 2022-0 No Unknown 3-16 00:00: 00 Dose 2022-0 No Unknown 3-16 00:00: 00 Dose 2022-0 No Unknown 3-16 00:00: 00 Dose 2022-0 No Unknown 3-16 00:00: 00 Dose 2022-0 No Unknown 3-16 00:00: 00 Dose 2022-0 No Unknown 3-16 00:00: 00 Dose 2022-0 No Unknown 3-16 00:00: 00 Dose 2022-0 No Unknown 3-16 00:00: 00 Dose 2022-0 No Unknown 3-16 00:00: 00 Dose 2022-0 No Unknown 3-16 00:00: 00 Dose 2022-0 No Unknown 3-16 00:00: 00 Dose 2022-0 No Unknown 3-16 00:00: 00 Dose 2022-0 No Unknown 3-16 00:00: 00 Dose 2022-0 No Unknown 3-16 00:00: 00 Dose 2022-0 No Unknown 3-16 00:00: 00 Dose 2022-0 No Unknown 3-16 00:00: 00 Dose 2022-0 No Unknown 3-16 00:00: 00 Dose 2022-0 No Unknown 3-16 00:00: 00 Dose 2022-0 No Unknown 3-16 00:00: 00 Dose 2022-0 No Unknown 3-16 00:00: 00 Dose 2022-0 No Unknown 3-16 00:00: 00 Dose 2022-0 No Unknown 3-16 00:00: 00 Dose 2022-0 No Unknown 3-16 00:00: 00 Dose 2022-0 No Unknown 3-16 00:00: 00 Dose 2022-0 No Unknown 3-16 00:00: 00 Dose 2022-0 No Unknown 3-16 00:00: 00 Dose 2022-0 No Unknown 3-16 00:00: 00 Dose 2022-0 No Unknown 3-16 00:00: 00 Dose 2022-0 No Unknown 3-16 00:00: 00 Dose 2022-0 No Unknown 3-16 00:00: 00 Dose 2022-0 No Unknown 3-16 00:00: 00 Dose 2022-0 No Unknown 3-16 00:00: 00 Dose 2022-0 No Unknown 3-16 00:00: 00 Dose 2022-0 No Unknown 3-16 00:00: 00 Dose 2022-0 No Unknown 3-16 00:00: 00 Dose 2022-0 No Unknown 3-16 00:00: 00 Dose 2022-0 No Unknown 3-16 00:00: 00 Dose 2022-0 No Unknown 3-16 00:00: 00 Dose 2022-0 No Unknown 3-16 00:00: 00 Dose 2022-0 No Unknown 3-16 00:00: 00 Dose 2022-0 No Unknown 3-16 00:00: 00 Dose 2022-0 No Unknown 3-16 00:00: 00 Dose 2022-0 No Unknown 3-16 00:00: 00 Dose 2022-0 No Unknown 3-16 00:00: 00 Dose 2022-0 No Unknown 3-16 00:00: 00 Dose 2022-0 No Unknown 3-16 00:00: 00 Dose 2022-0 No Unknown 3-16 00:00: 00 Dose 2022-0 No Unknown 3-16 00:00: 00 Dose 2022-0 No Unknown 3-16 00:00: 00 Dose 2022-0 No Unknown 3-16 00:00: 00 Dose 2022-0 No Unknown 3-16 00:00: 00 Dose 2022-0 No Unknown 3-16 00:00: 00 Dose 2022-0 No Unknown 3-16 00:00: 00 Dose 2022-0 No Unknown 3-16 00:00: 00 Dose 2022-0 No Unknown 3-16 00:00: 00 Dose 2022-0 No Unknown 3-16 00:00: 00 Dose 2022-0 No Unknown 3-16 00:00: 00 Dose 2022-0 No Unknown 3-16 00:00: 00 Dose 2022-0 No Unknown 3-16 00:00: 00 Dose 2022-0 No Unknown 3-16 00:00: 00 Dose 2022-0 No Unknown 3-16 00:00: 00 Dose 2022-0 No Unknown 3-16 00:00: 00 Dose 2022-0 No Unknown 3-16 00:00: 00 Dose 2022-0 No Unknown 3-16 00:00: 00 Dose 2022-0 No Unknown 3-16 00:00: 00 Dose 2022-0 No Unknown 3-16 00:00: 00 Dose 2022-0 No Unknown 3-16 00:00: 00 Dose 2022-0 No Unknown 3-16 00:00: 00 Dose 2022-0 No Unknown 3-16 00:00: 00 Dose 2022-0 No Unknown 3-16 00:00: 00 Dose 2022-0 No Unknown 3-16 00:00: 00 Dose 2022-0 No Unknown 3-16 00:00: 00 Dose 2022-0 No Unknown 3-16 00:00: 00 Dose 2022-0 No Unknown 3-16 00:00: 00 Dose 2022-0 No Unknown 3-16 00:00: 00 Dose 2022-0 No Unknown 3-16 00:00: 00 Dose 2022-0 No Unknown 3-16 00:00: 00 Dose 2022-0 No Unknown 3-16 00:00: 00 Dose 2022-0 No Unknown 3-16 00:00: 00 Dose 2022-0 No Unknown 3-16 00:00: 00 Dose 2022-0 No Unknown 3-16 00:00: 00 Dose 2022-0 No Unknown 3-16 00:00: 00 Dose 2022-0 No Unknown 3-16 00:00: 00 Dose 2022-0 No Unknown 3-16 00:00: 00 Dose 2022-0 No Unknown 3-16 00:00: 00 Dose 2022-0 No Unknown 3-16 00:00: 00 Dose 2022-0 No Unknown 3-16 00:00: 00 Dose 2022-0 No Unknown 3-16 00:00: 00 Dose 2022-0 No Unknown 3-16 00:00: 00 Dose 2022-0 No Unknown 3-16 00:00: 00 Dose 2022-0 No Unknown 3-16 00:00: 00 Dose 2022-0 No Unknown 3-16 00:00: 00 Dose 2022-0 No Unknown 3-16 00:00: 00 Dose 2022-0 No Unknown 3-16 00:00: 00 Dose 2022-0 No Unknown 3-16 00:00: 00 Dose 2022-0 No Unknown 3-16 00:00: 00 Dose 2022-0 No Unknown 3-16 00:00: 00 Dose 2022-0 No Unknown 3-16 00:00: 00 Dose 2022-0 No Unknown 3-16 00:00: 00 Dose 2022-0 No Unknown 3-16 00:00: 00 Dose 2022-0 No Unknown 3-16 00:00: 00 Dose 2022-0 No Unknown 3-16 00:00: 00 Dose 2022-0 No Unknown 3-16 00:00: 00 Dose 2022-0 No Unknown 3-16 00:00: 00 Dose 2022-0 No Unknown 3-16 00:00: 00 Dose 2022-0 No Unknown 3-16 00:00: 00 Dose 2022-0 No Unknown 3-16 00:00: 00 Dose 2022-0 No Unknown 3-16 00:00: 00 Dose 2022-0 No Unknown 3-16 00:00: 00 Dose 2022-0 No Unknown 3-16 00:00: 00 Dose 2022-0 No Unknown 3-16 00:00: 00 Dose 2022-0 No Unknown 3-16 00:00: 00 Dose 2022-0 No Unknown 3-16 00:00: 00 Dose 2022-0 No Unknown 3-16 00:00: 00 Dose 2022-0 No Unknown 3-16 00:00: 00 Dose 2022-0 No Unknown 3-16 00:00: 00 Dose 2022-0 No Unknown 3-16 00:00: 00 Dose 2022-0 No Unknown 3-16 00:00: 00 Dose 2022-0 No Unknown 3-16 00:00: 00 Dose 2022-0 No Unknown 3-16 00:00: 00 Dose 2022-0 No Unknown 3-16 00:00: 00 Dose 2022-0 No Unknown 3-16 00:00: 00 Dose 2022-0 No Unknown 3-16 00:00: 00 Dose 2022-0 No Unknown 3-16 00:00: 00 Dose 2022-0 No Unknown 3-16 00:00: 00 Dose 2022-0 No Unknown 3-16 00:00: 00 Dose 2022-0 No Unknown 3-16 00:00: 00 Dose 2022-0 No Unknown 3-16 00:00: 00 Dose 2022-0 No Unknown 3-16 00:00: 00 Dose 2022-0 No Unknown 3-16 00:00: 00 Dose 2022-0 No Unknown 3-16 00:00: 00 Dose 2022-0 No Unknown 3-16 00:00: 00 Dose 2022-0 No Unknown 3-16 00:00: 00 Dose 2022-0 No Unknown 3-16 00:00: 00 Dose 2022-0 No Unknown 3-16 00:00: 00 Dose 2022-0 No Unknown 3-16 00:00: 00 Dose 2022-0 No Unknown 3-16 00:00: 00 Dose 2022-0 No Unknown 3-16 00:00: 00 Dose 2022-0 No Unknown 3-16 00:00: 00 Dose 2022-0 No Unknown 3-16 00:00: 00 Dose 2022-0 No Unknown 3-16 00:00: 00 Dose 2022-0 No Unknown 3-16 00:00: 00 Dose 2022-0 No Unknown 3-16 00:00: 00 Dose 2022-0 No Unknown 3-16 00:00: 00 Dose 2022-0 No Unknown 3-16 00:00: 00 Dose 2022-0 No Unknown 3-16 00:00: 00 Dose 2022-0 No Unknown 3-16 00:00: 00 Dose 2022-0 No Unknown 3-16 00:00: 00 Dose 2022-0 No Unknown 3-16 00:00: 00 Dose 2022-0 No Unknown 3-16 00:00: 00 Dose 2022-0 No Unknown 3-16 00:00: 00 Dose 2022-0 No Unknown 3-16 00:00: 00 Dose 2022-0 No Unknown 3-16 00:00: 00 Dose 2022-0 No Unknown 3-16 00:00: 00 Dose 2022-0 No Unknown 3-16 00:00: 00 Dose 2022-0 No Unknown 3-16 00:00: 00 Dose 2022-0 No Unknown 3-16 00:00: 00 Dose 2022-0 No Unknown 3-16 00:00: 00 Dose 2022-0 No Unknown 3-16 00:00: 00 Dose 2022-0 No Unknown 3-16 00:00: 00 Dose 2022-0 No Unknown 3-16 00:00: 00 Dose 2022-0 No Unknown 3-16 00:00: 00 Dose 2022-0 No Unknown 3-16 00:00: 00 Dose 2022-0 No Unknown 3-16 00:00: 00 Dose 2022-0 No Unknown 3-16 00:00: 00 Dose 2022-0 No Unknown 3-16 00:00: 00 Dose 2022-0 No Unknown 3-16 00:00: 00 Dose 2022-0 No Unknown 3-16 00:00: 00 Dose 2022-0 No Unknown 3-16 00:00: 00 Dose 2022-0 No Unknown 3-16 00:00: 00 Dose 2022-0 No Unknown 3-16 00:00: 00 Dose 2022-0 No Unknown 3-16 00:00: 00 Dose 2022-0 No Unknown 3-16 00:00: 00 Dose 2022-0 No Unknown 3-16 00:00: 00 Dose 2022-0 No Unknown 3-16 00:00: 00 Dose 2022-0 No Unknown 3-16 00:00: 00 Dose 2022-0 No Unknown 3-16 00:00: 00 Dose 2022-0 No Unknown 3-16 00:00: 00 Dose 2022-0 No Unknown 3-16 00:00: 00 Dose 2022-0 No Unknown 3-16 00:00: 00 Dose 2022-0 No Unknown 3-16 00:00: 00 Dose 2022-0 No Unknown 3-16 00:00: 00 Dose 2022-0 No Unknown 3-16 00:00: 00 Dose 2022-0 No Unknown 3-16 00:00: 00 Dose 2022-0 No Unknown 3-16 00:00: 00 Dose 2022-0 No Unknown 3-16 00:00: 00 Dose 2022-0 No Unknown 3-16 00:00: 00 Dose 2022-0 No Unknown 3-16 00:00: 00 Dose 2022-0 No Unknown 3-16 00:00: 00 Dose 2022-0 No Unknown 3-16 00:00: 00 Dose 2022-0 No Unknown 3-16 00:00: 00 Dose 2022-0 No Unknown 3-16 00:00: 00 Dose 2022-0 No Unknown 3-16 00:00: 00 Dose 2022-0 No Unknown 3-16 00:00: 00 Dose 2022-0 No Unknown 3-16 00:00: 00 Dose 2022-0 No Unknown 3-16 00:00: 00 Dose 2022-0 No Unknown 3-16 00:00: 00 Dose 2022-0 No Unknown 3-16 00:00: 00 Dose 2022-0 No Unknown 3-16 00:00: 00 Dose 2022-0 No Unknown 3-16 00:00: 00 Dose 2022-0 No Unknown 3-16 00:00: 00 Dose 2022-0 No Unknown 3-16 00:00: 00 Dose 2022-0 No Unknown 3-16 00:00: 00 Dose 2022-0 No Unknown 3-16 00:00: 00 Dose 2022-0 No Unknown 3-16 00:00: 00 Dose 2022-0 No Unknown 3-16 00:00: 00 Dose 2022-0 No Unknown 3-16 00:00: 00 Dose 2022-0 No Unknown 3-16 00:00: 00 Dose 2022-0 No Unknown 3-16 00:00: 00 Dose 2022-0 No Unknown 3-16 00:00: 00 Dose 2022-0 No Unknown 3-16 00:00: 00 Dose 2022-0 No Unknown 3-16 00:00: 00 Dose 2022-0 No Unknown 3-16 00:00: 00 Dose 2022-0 No Unknown 3-16 00:00: 00 Dose 2022-0 No Unknown 3-16 00:00: 00 Dose 2022-0 No Unknown 3-16 00:00: 00 Dose 2022-0 No Unknown 3-16 00:00: 00 Dose 2022-0 No Unknown 3-16 00:00: 00 Dose 2022-0 No Unknown 3-16 00:00: 00 Dose 2022-0 No Unknown 3-16 00:00: 00 Dose 2022-0 No Unknown 3-16 00:00: 00 Dose 2022-0 No Unknown 3-16 00:00: 00 Dose 2022-0 No Unknown 3-16 00:00: 00 Dose 2022-0 No Unknown 3-16 00:00: 00 Dose 2022-0 No Unknown 3-16 00:00: 00 Dose 2022-0 No Unknown 3-16 00:00: 00 Dose 2022-0 No Unknown 3-16 00:00: 00 Dose 2022-0 No Unknown 3-16 00:00: 00 Dose 2022-0 No Unknown 3-16 00:00: 00 Dose 2022-0 No Unknown 3-16 00:00: 00 Dose 2022-0 No Unknown 3-16 00:00: 00 Dose 2022-0 No Unknown 3-16 00:00: 00 Dose 2022-0 No Unknown 3-16 00:00: 00 Dose 2022-0 No Unknown 3-16 00:00: 00 Dose 2022-0 No Unknown 3-16 00:00: 00 Dose 2022-0 No Unknown 3-16 00:00: 00 Dose 2022-0 No Unknown 3-16 00:00: 00 Dose 2022-0 No Unknown 3-16 00:00: 00 Dose 2022-0 No Unknown 3-16 00:00: 00 Dose 2022-0 No Unknown 3-16 00:00: 00 Dose 2022-0 No Unknown 3-16 00:00: 00 Dose 2022-0 No Unknown 3-16 00:00: 00 Dose 2022-0 No Unknown 3-16 00:00: 00 Dose 2022-0 No Unknown 3-16 00:00: 00 Dose 2022-0 No Unknown 3-16 00:00: 00 Dose 2022-0 No Unknown 3-16 00:00: 00 Dose 2022-0 No Unknown 3-16 00:00: 00 Dose 2022-0 No Unknown 3-16 00:00: 00 Dose 2022-0 No Unknown 3-16 00:00: 00 Dose 2022-0 No Unknown 3-16 00:00: 00 Dose 2022-0 No Unknown 3-16 00:00: 00 Dose 2022-0 No Unknown 3-16 00:00: 00 Dose 2022-0 No Unknown 3-16 00:00: 00 Dose 2022-0 No Unknown 3-16 00:00: 00 Dose 2022-0 No Unknown 3-16 00:00: 00 Dose 2022-0 No Unknown 3-16 00:00: 00 Dose 2022-0 No Unknown 3-16 00:00: 00 Dose 2022-0 No Unknown 3-16 00:00: 00 Dose 2022-0 No Unknown 3-16 00:00: 00 Dose 2022-0 No Unknown 3-16 00:00: 00 Dose 2022-0 No Unknown 3-16 00:00: 00 Dose 2022-0 No Unknown 3-16 00:00: 00 Dose 2022-0 No Unknown 3-16 00:00: 00 Dose 2022-0 No Unknown 3-16 00:00: 00 Dose 2022-0 No Unknown 3-16 00:00: 00 Dose 2022-0 No Unknown 3-16 00:00: 00 Dose 2022-0 No Unknown 3-16 00:00: 00 Dose 2022-0 No Unknown 3-16 00:00: 00 Dose 2022-0 No Unknown 3-16 00:00: 00 Dose 2022-0 No Unknown 3-16 00:00: 00 Dose 2022-0 No Unknown 3-16 00:00: 00 Dose 2022-0 No Unknown 3-16 00:00: 00 Dose 2022-0 No Unknown 3-16 00:00: 00 Dose 2022-0 No Unknown 3-16 00:00: 00 Dose 2022-0 No Unknown 3-16 00:00: 00 Dose 2022-0 No Unknown 3-16 00:00: 00 Dose 2022-0 No Unknown 3-16 00:00: 00 Dose 2022-0 No Unknown 3-16 00:00: 00 Dose 2022-0 No Unknown 3-16 00:00: 00 Dose 2022-0 No Unknown 3-16 00:00: 00 Dose 2022-0 No Unknown 3-16 00:00: 00 Dose 2022-0 No Unknown 3-16 00:00: 00 Dose 2022-0 No Unknown 3-16 00:00: 00 Dose 2022-0 No Unknown 3-16 00:00: 00 Dose 2022-0 No Unknown 3-16 00:00: 00 Dose 2022-0 No Unknown 3-16 00:00: 00 Dose 2022-0 No Unknown 3-16 00:00: 00 Dose 2022-0 No Unknown 3-16 00:00: 00 Dose 2022-0 No Unknown 3-16 00:00: 00 Dose 2022-0 No Unknown 3-15 00:00: 00 Dose 2022-0 No Unknown 3-15 00:00: 00 Dose 2022-0 No Unknown 3-15 00:00: 00 Dose 2022-0 No Unknown 3-15 00:00: 00 Dose 2022-0 No Unknown 3-15 00:00: 00 Dose 2022-0 No Unknown 3-15 00:00: 00 Dose 2022-0 No Unknown 3-15 00:00: 00 Dose 2022-0 No Unknown 3-15 00:00: 00 Dose 2022-0 No Unknown 3-15 00:00: 00 Dose 2022-0 No Unknown 3-15 00:00: 00 Dose 2022-0 No Unknown 3-15 00:00: 00 Dose 2022-0 No Unknown 3-15 00:00: 00 Dose 2022-0 No Unknown 3-15 00:00: 00 Dose 2022-0 No Unknown 3-15 00:00: 00 Dose 2022-0 No Unknown 3-15 00:00: 00 Dose 2022-0 No Unknown 3-15 00:00: 00 Dose 2022-0 No Unknown 3-15 00:00: 00 Dose 2022-0 No Unknown 3-15 00:00: 00 Dose 2022-0 No Unknown 3-15 00:00: 00 Dose 2022-0 No Unknown 3-15 00:00: 00 Dose 2022-0 No Unknown 3-15 00:00: 00 Dose 2022-0 No Unknown 3-15 00:00: 00 Dose 2022-0 No Unknown 3-15 00:00: 00 Dose 2022-0 No Unknown 3-15 00:00: 00 Dose 2022-0 No Unknown 3-15 00:00: 00 Dose 2022-0 No Unknown 3-15 00:00: 00 Dose 2022-0 No Unknown 3-15 00:00: 00 Dose 2022-0 No Unknown 3-15 00:00: 00 Dose 2022-0 No Unknown 3-15 00:00: 00 Dose 2022-0 No Unknown 3-15 00:00: 00 Dose 2022-0 No Unknown 3-15 00:00: 00 Dose 2022-0 No Unknown 3-15 00:00: 00 Dose 2022-0 No Unknown 3-15 00:00: 00 Dose 2022-0 No Unknown 3-15 00:00: 00 Dose 2022-0 No Unknown 3-15 00:00: 00 Dose 2022-0 No Unknown 3-15 00:00: 00 Dose 2022-0 No Unknown 3-15 00:00: 00 Dose 2022-0 No Unknown 3-15 00:00: 00 Dose 2022-0 No Unknown 3-15 00:00: 00 Dose 2022-0 No Unknown 3-15 00:00: 00 Dose 2022-0 No Unknown 3-15 00:00: 00 Dose 2022-0 No Unknown 3-15 00:00: 00 Dose 2022-0 No Unknown 3-15 00:00: 00 Dose 2022-0 No Unknown 3-15 00:00: 00 Dose 2022-0 No Unknown 3-15 00:00: 00 Dose 2022-0 No Unknown 3-15 00:00: 00 Dose 2022-0 No Unknown 3-15 00:00: 00 Dose 2022-0 No Unknown 3-15 00:00: 00 Dose 2022-0 No Unknown 3-15 00:00: 00 Dose 2022-0 No Unknown 3-15 00:00: 00 Dose 2022-0 No Unknown 3-15 00:00: 00 Dose 2022-0 No Unknown 3-15 00:00: 00 Dose 2022-0 No Unknown 3-15 00:00: 00 Dose 2022-0 No Unknown 3-15 00:00: 00 Dose 2022-0 No Unknown 3-15 00:00: 00 Dose 2022-0 No Unknown 3-15 00:00: 00 Dose 2022-0 No Unknown 3-15 00:00: 00 Dose 2022-0 No Unknown 3-15 00:00: 00 Dose 2022-0 No Unknown 3-15 00:00: 00 Dose 2022-0 No Unknown 3-15 00:00: 00 Dose 2022-0 No Unknown 3-15 00:00: 00 Dose 2022-0 No Unknown 3-15 00:00: 00 Dose 2022-0 No Unknown 3-15 00:00: 00 Dose 2022-0 No Unknown 3-15 00:00: 00 Dose 2022-0 No Unknown 3-15 00:00: 00 Dose 2022-0 No Unknown 3-15 00:00: 00 Dose 2022-0 No Unknown 3-15 00:00: 00 Dose 2022-0 No Unknown 3-15 00:00: 00 Dose 2022-0 No Unknown 3-15 00:00: 00 Dose 2022-0 No Unknown 3-15 00:00: 00 Dose 2022-0 No Unknown 3-15 00:00: 00 Dose 2022-0 No Unknown 3-15 00:00: 00 Dose 2022-0 No Unknown 1-18 00:00: 00 Dose 2022-0 No Unknown 1-18 00:00: 00 Dose 2022-0 No Unknown 1-18 00:00: 00 Dose 2022-0 No Unknown 1-18 00:00: 00 Dose 2022-0 No Unknown 1-18 00:00: 00 Dose 2022-0 No Unknown 1-18 00:00: 00 hydroxyzine 2022-0 No 1mg HCl 10 mg 1-05 tablet 00:00: 00 escitalopra 2022-0 No 1mg m 10 mg 1-05 tablet 00:00: 00 hydroxyzine 2022-0 No 1mg HCl 10 mg 1-05 tablet 00:00: 00 escitalopra 2022-0 No 1mg m 10 mg 1-05 tablet 00:00: 00 hydroxyzine 2022-0 No 1mg HCl 10 mg 1-05 tablet 00:00: 00 escitalopra 2022-0 No 1mg m 10 mg 1-05 tablet 00:00: 00 hydroxyzine 2022-0 No 1mg HCl 10 mg 1-05 tablet 00:00: 00 escitalopra 2-0 No 1mg m 10 mg 1-05 tablet 00:00: 00 hydroxyzine 2-0 No 1mg HCl 10 mg 1-05 tablet 00:00: 00 escitalopra 2-0 No 1mg m 10 mg 1-05 tablet 00:00: 00 hydroxyzine 2-0 No 1mg HCl 10 mg 1-05 tablet 00:00: 00 escitalopra 2-0 No 1mg m 10 mg 1-05 tablet 00:00: 00 Dose 1-1 No Unknown 2-08 00:00: 00 Dose 2020-1 No Unknown 2-08 00:00: 00 Dose 2020-1 No Unknown 2-08 00:00: 00 Dose 2020-1 No Unknown 2-08 00:00: 00 Dose 2020-1 No Unknown 2-08 00:00: 00 Dose 2020-1 No Unknown 2-08 00:00: 00 Dose 1-1 No Unknown 2-08 00:00: 00 Dose 2020-1 No Unknown 2-08 00:00: 00 Dose 2020-1 No Unknown 2-08 00:00: 00 Dose 2020-1 No Unknown 2-08 00:00: 00 Dose 2020-1 No Unknown 2-08 00:00: 00 Dose 2020-1 No Unknown 2-08 00:00: 00 Wellbutrin 2020-1 No 1mg XL 300 mg 1-20 24 hr 00:00: tablet, 00 extended release Wellbutrin 2020-1 No 1mg XL 300 mg 1-20 24 hr 00:00: tablet, 00 extended release Wellbutrin 2020-1 No 1mg XL 300 mg 1-20 24 hr 00:00: tablet, 00 extended release Wellbutrin 2020-1 No 1mg XL 300 mg 1-20 24 hr 00:00: tablet, 00 extended release Wellbutrin 2020-1 No 1mg XL 300 mg 1-20 24 hr 00:00: tablet, 00 extended release Wellbutrin 2020-1 No 1mg XL 300 mg 1-20 24 hr 00:00: tablet, 00 extended release cyclobenzap 2020-1 No 1mg rine 10 mg 1-16 tablet 00:00: 00 gabapentin 2020-1 No 1mg 300 mg 1-16 capsule 00:00: 00 indomethaci 2021-1 No 1mg n 50 mg 1-16 capsule 00:00: 00 cyclobenzap 2020-1 No 1mg rine 10 mg 1-16 tablet 00:00: 00 gabapentin 2020-1 No 1mg 300 mg 1-16 capsule 00:00: 00 indomethaci 2020-1 No 1mg n 50 mg 1-16 capsule 00:00: 00 cyclobenzap 2020-1 No 1mg rine 10 mg 1-16 tablet 00:00: 00 gabapentin 2020-1 No 1mg 300 mg 1-16 capsule 00:00: 00 indomethaci 2020-1 No 1mg n 50 mg 1-16 capsule 00:00: 00 cyclobenzap 2020-1 No 1mg rine 10 mg 1-16 tablet 00:00: 00 gabapentin 2020-1 No 1mg 300 mg 1-16 capsule 00:00: 00 indomethaci 2020-1 No 1mg n 50 mg 1-16 capsule 00:00: 00 cyclobenzap 2020-1 No 1mg rine 10 mg 1-16 tablet 00:00: 00 gabapentin 2020-1 No 1mg 300 mg 1-16 capsule 00:00: 00 indomethaci 2020-1 No 1mg n 50 mg 1-16 capsule 00:00: 00 cyclobenzap 2020-1 No 1mg rine 10 mg 1-16 tablet 00:00: 00 gabapentin 2020-1 No 1mg 300 mg 1-16 capsule 00:00: 00 indomethaci 2020-1 No 1mg n 50 mg 1-16 capsule 00:00: 00 Advair HFA 2020- No 1mcg/ac 115 mcg-21 1-08 tuation mcg/actuati 00:00: on aerosol 00 inhaler azithromyci 2020- No 1mg n 250 mg 1-08 tablet 00:00: 00 loratadine 2020- No 1mg 10 mg 1-08 capsule 00:00: 00 Advair HFA 2020- No 1mcg/ac 115 mcg-21 1-08 tuation mcg/actuati 00:00: on aerosol 00 inhaler azithromyci 2020- No 1mg n 250 mg 1-08 tablet 00:00: 00 loratadine 2020-1 No 1mg 10 mg 1-08 capsule 00:00: 00 Advair HFA 2020- No 1mcg/ac 115 mcg-21 1-08 tuation mcg/actuati 00:00: on aerosol 00 inhaler azithromyci 2020- No 1mg n 250 mg 1-08 tablet 00:00: 00 loratadine 2020- No 1mg 10 mg 1-08 capsule 00:00: 00 Advair HFA 2020- No 1mcg/ac 115 mcg-21 1-08 tuation mcg/actuati 00:00: on aerosol 00 inhaler azithromyci 2020- No 1mg n 250 mg 1-08 tablet 00:00: 00 loratadine 2020- No 1mg 10 mg 1-08 capsule 00:00: 00 Advair HFA 2020- No 1mcg/ac 115 mcg-21 1-08 tuation mcg/actuati 00:00: on aerosol 00 inhaler azithromyci 2020- No 1mg n 250 mg 1-08 tablet 00:00: 00 loratadine 2020- No 1mg 10 mg 1-08 capsule 00:00: 00 Advair HFA 2020-11 No 1mcg/ac 115 mcg-21 1-08 tuation mcg/actuati 00:00: on aerosol 00 inhaler azithromyci 2020-11 No 1mg n 250 mg 1-08 tablet 00:00: 00 loratadine 2020-1 No 1mg 10 mg 1-08 capsule 00:00: 00 Dose 2020-1 No Unknown 1-02 00:00: 00 Dose 2020-1 No Unknown 1-02 00:00: 00 Dose 2020-1 No Unknown 1-02 00:00: 00 Dose 2020-1 No Unknown 1-02 00:00: 00 Dose 2020-1 No Unknown 1-02 00:00: 00 Dose 2020-1 No Unknown 1-02 00:00: 00 famotidine 2020-1 No 1mg 20 mg 1-01 tablet 00:00: 00 Augmentin 2020-1 No 1mg 875 mg-125 1-01 mg tablet 00:00: 00 famotidine 2020-1 No 1mg 20 mg 1-01 tablet 00:00: 00 Augmentin 2020-1 No 1mg 875 mg-125 1-01 mg tablet 00:00: 00 famotidine 2020-1 No 1mg 20 mg 1-01 tablet 00:00: 00 Augmentin 2020-1 No 1mg 875 mg-125 1-01 mg tablet 00:00: 00 famotidine 2020- No 1mg 20 mg 1-01 tablet 00:00: 00 Augmentin 2020-1 No 1mg 875 mg-125 1-01 mg tablet 00:00: 00 famotidine 2020- No 1mg 20 mg 1-01 tablet 00:00: 00 Augmentin 2020- No 1mg 875 mg-125 1-01 mg tablet 00:00: 00 famotidine 2020- No 1mg 20 mg 1-01 tablet 00:00: 00 Augmentin 2020- No 1mg 875 mg-125 1-01 mg tablet 00:00: 00 famotidine 2020-11 No 1mg 20 mg 0-27 tablet 00:00: 00 famotidine 2020- No 1mg 20 mg 0-27 tablet 00:00: 00 famotidine 2020- No 1mg 20 mg 0-27 tablet 00:00: 00 famotidine 2020- No 1mg 20 mg 0-27 tablet 00:00: 00 famotidine 2020- No 1mg 20 mg 0-27 tablet 00:00: 00 famotidine 2020- No 1mg 20 mg 0-27 tablet 00:00: 00 Dose 2020-1 No Unknown 0-25 00:00: 00 Dose 2020-1 No Unknown 0-25 00:00: 00 benzonatate 2020-1 No 1mg 100 mg 0-25 capsule 00:00: 00 Dose 2020-1 No Unknown 0-25 00:00: 00 Dose 2020-1 No Unknown 0-25 00:00: 00 benzonatate 2020-1 No 1mg 100 mg 0-25 capsule 00:00: 00 Dose 2020-1 No Unknown 0-25 00:00: 00 Dose 2020-1 No Unknown 0-25 00:00: 00 benzonatate 2020-1 No 1mg 100 mg 0-25 capsule 00:00: 00 Dose 2020-1 No Unknown 0-25 00:00: 00 Dose 2020-1 No Unknown 0-25 00:00: 00 benzonatate 2021-1 No 1mg 100 mg 0-25 capsule 00:00: 00 Dose 2020-11 No Unknown 0-25 00:00: 00 Dose 2020-11 No Unknown 0-25 00:00: 00 benzonatate 2020-11 No 1mg 100 mg 0-25 capsule 00:00: 00 Dose 2020-11 No Unknown 0-25 00:00: 00 Dose 2020-11 No Unknown 0-25 00:00: 00 benzonatate 2020-11 No 1mg 100 mg 0-25 capsule 00:00: 00 Flonase 2020-11 No 12mcg/a Sensimist 0-20 ctuatio 27.5 00:00: n mcg/actuati 00 on nasal spray,suspe nsion Dose 2020-11 No Unknown 0-20 00:00: 00 Flonase 2020-11 No 12mcg/a Sensimist 0-20 ctuatio 27.5 00:00: n mcg/actuati 00 on nasal spray,suspe nsion Dose 2020-11 No Unknown 0-20 00:00: 00 Flonase 2020-11 No 12mcg/a Sensimist 0-20 ctuatio 27.5 00:00: n mcg/actuati 00 on nasal spray,suspe nsion Flonase 2020-11 No 12mcg/a Sensimist 0-20 ctuatio 27.5 00:00: n mcg/actuati 00 on nasal spray,suspe nsion Dose 2020-11 No Unknown 0-20 00:00: 00 Dose 2020-11 No Unknown 0-20 00:00: 00 Flonase 2020-11 No 12mcg/a Sensimist 0-20 ctuatio 27.5 00:00: n mcg/actuati 00 on nasal spray,suspe nsion Dose 2020-11 No Unknown 0-20 00:00: 00 Flonase 2020-11 No 12mcg/a Sensimist 0-20 ctuatio 27.5 00:00: n mcg/actuati 00 on nasal spray,suspe nsion Dose 2020-11 No Unknown 0-20 00:00: 00 Wellbutrin 2020-11 No 1mg XL 150 mg 0-15 24 hr 00:00: tablet, 00 extended release trazodone 2021-1 No 5mg 50 mg 0-15 tablet 00:00: 00 Wellbutrin 1-1 No 1mg XL 150 mg 0-15 24 hr 00:00: tablet, 00 extended release trazodone 2020-1 No 5mg 50 mg 0-15 tablet 00:00: 00 Wellbutrin 2020-1 No 1mg XL 150 mg 0-15 24 hr 00:00: tablet, 00 extended release trazodone 2020-1 No 5mg 50 mg 0-15 tablet 00:00: 00 Wellbutrin 2020-1 No 1mg XL 150 mg 0-15 24 hr 00:00: tablet, 00 extended release trazodone 2020-1 No 5mg 50 mg 0-15 tablet 00:00: 00 Wellbutrin 2020-1 No 1mg XL 150 mg 0-15 24 hr 00:00: tablet, 00 extended release trazodone 2020-1 No 5mg 50 mg 0-15 tablet 00:00: 00 Wellbutrin 2020-1 No 1mg XL 150 mg 0-15 24 hr 00:00: tablet, 00 extended release trazodone 2020-1 No 5mg 50 mg 0-15 tablet 00:00: 00 Wellbutrin 2020-1 No 1mg XL 150 mg 0-04 24 hr 00:00: tablet, 00 extended release Wellbutrin 2020-1 No 1mg XL 150 mg 0-04 24 hr 00:00: tablet, 00 extended release Wellbutrin 2020-1 No 1mg XL 150 mg 0-04 24 hr 00:00: tablet, 00 extended release Wellbutrin 2020-1 No 1mg XL 150 mg 0-04 24 hr 00:00: tablet, 00 extended release Wellbutrin 2020-1 No 1mg XL 150 mg 0-04 24 hr 00:00: tablet, 00 extended release Wellbutrin 2020-1 No 1mg XL 150 mg 0-04 24 hr 00:00: tablet, 00 extended release hydroxyzine 1-1 No 1mg HCl 25 mg 0-02 tablet 00:00: 00 hydroxyzine 1-1 No 1mg HCl 25 mg 0-02 tablet 00:00: 00 hydroxyzine 1-1 No 1mg HCl 25 mg 0-02 tablet 00:00: 00 hydroxyzine 2021-1 No 1mg HCl 25 mg 0-02 tablet 00:00: 00 hydroxyzine 2021-1 No 1mg HCl 25 mg 0-02 tablet 00:00: 00 hydroxyzine 2021-1 No 1mg HCl 25 mg 0-02 tablet 00:00: 00 ibuprofen 2021-0 No 1mg 800 mg 9-21 tablet 00:00: 00 ibuprofen 2021-0 No 1mg 800 mg 9-21 tablet 00:00: 00 ibuprofen 2021-0 No 1mg 800 mg 9-21 tablet 00:00: 00 ibuprofen 2021-0 No 1mg 800 mg 9-21 tablet 00:00: 00 ibuprofen 2021-0 No 1mg 800 mg 9-21 tablet 00:00: 00 ibuprofen 2021-0 No 1mg 800 mg 9-21 tablet 00:00: 00 Dose 2021-0 No Unknown 7-08 00:00: 00 Dose 2021-0 No Unknown 7-08 00:00: 00 Dose 2021-0 No Unknown 7-08 00:00: 00 Dose 2021-0 No Unknown 7-08 00:00: 00 Dose 2021-0 No Unknown 7-08 00:00: 00 Dose 2021-0 No Unknown 7-08 00:00: 00 cetirizine 2021-0 No 1mg 10 mg 6-16 tablet 00:00: 00 Bromfed DM 1-0 No 10mg/5 2 mg-30 6-16 mL mg-10 mg/5 00:00: mL oral 00 syrup cetirizine 1-0 No 1mg 10 mg 6-16 tablet 00:00: 00 Bromfed DM 2021-0 No 10mg/5 2 mg-30 6-16 mL mg-10 mg/5 00:00: mL oral 00 syrup cetirizine 1-0 No 1mg 10 mg 6-16 tablet 00:00: 00 Bromfed DM 2021-0 No 10mg/5 2 mg-30 6-16 mL mg-10 mg/5 00:00: mL oral 00 syrup cetirizine 1-0 No 1mg 10 mg 6-16 tablet 00:00: 00 Bromfed DM 2021-0 No 10mg/5 2 mg-30 6-16 mL mg-10 mg/5 00:00: mL oral 00 syrup cetirizine 1-0 No 1mg 10 mg 6-16 tablet 00:00: 00 Bromfed DM 2021-0 No 10mg/5 2 mg-30 6-16 mL mg-10 mg/5 00:00: mL oral 00 syrup cetirizine 2021-0 No 1mg 10 mg 6-16 tablet 00:00: 00 Bromfed DM 2021-0 No 10mg/5 2 mg-30 6-16 mL mg-10 mg/5 00:00: mL oral 00 syrup hydroxyzine 2021-0 No 1mg HCl 25 mg 6-12 tablet 00:00: 00 prednisone 2021-0 No mg 20 mg 6-12 tablet 00:00: 00 diclofenac 2021-0 No 1% 1 % topical 6-12 gel 00:00: 00 ibuprofen 2021-0 No 1mg 800 mg 6-12 tablet 00:00: 00 hydroxyzine 2021-0 No 1mg HCl 25 mg 6-12 tablet 00:00: 00 prednisone 2021-0 No mg 20 mg 6-12 tablet 00:00: 00 diclofenac 2021-0 No 1% 1 % topical 6-12 gel 00:00: 00 ibuprofen 2021-0 No 1mg 800 mg 6-12 tablet 00:00: 00 hydroxyzine 2021-0 No 1mg HCl 25 mg 6-12 tablet 00:00: 00 prednisone 2021-0 No mg 20 mg 6-12 tablet 00:00: 00 diclofenac 2021-0 No 1% 1 % topical 6-12 gel 00:00: 00 ibuprofen 2021-0 No 1mg 800 mg 6-12 tablet 00:00: 00 hydroxyzine 2021-0 No 1mg HCl 25 mg 6-12 tablet 00:00: 00 prednisone 2021-0 No mg 20 mg 6-12 tablet 00:00: 00 diclofenac 2021-0 No 1% 1 % topical 6-12 gel 00:00: 00 ibuprofen 2021-0 No 1mg 800 mg 6-12 tablet 00:00: 00 hydroxyzine 2021-0 No 1mg HCl 25 mg 6-12 tablet 00:00: 00 prednisone 2021-0 No mg 20 mg 6-12 tablet 00:00: 00 diclofenac 2021-0 No 1% 1 % topical 6-12 gel 00:00: 00 ibuprofen 2021-0 No 1mg 800 mg 6-12 tablet 00:00: 00 hydroxyzine 2021-0 No 1mg HCl 25 mg 6-12 tablet 00:00: 00 prednisone 2021-0 No mg 20 mg 6-12 tablet 00:00: 00 diclofenac 2021-0 No 1% 1 % topical 6-12 gel 00:00: 00 ibuprofen 2021-0 No 1mg 800 mg 6-12 tablet 00:00: 00 ibuprofen 2021-0 No 1mg 800 mg 2-20 tablet 00:00: 00 ibuprofen 2021-0 No 1mg 800 mg 2-20 tablet 00:00: 00 ibuprofen 2021-0 No 1mg 800 mg 2-20 tablet 00:00: 00 ibuprofen 2021-0 No 1mg 800 mg 2-20 tablet 00:00: 00 ibuprofen 2021-0 No 1mg 800 mg 2-20 tablet 00:00: 00 ibuprofen 2021-0 No 1mg 800 mg 2-20 tablet 00:00: 00 prednisone 2020-1 No mg 20 mg 2-15 tablet 00:00: 00 prednisone 2020-1 No mg 20 mg 2-15 tablet 00:00: 00 prednisone 2020-1 No mg 20 mg 2-15 tablet 00:00: 00 prednisone 2020-1 No mg 20 mg 2-15 tablet 00:00: 00 prednisone 2020-1 No mg 20 mg 2-15 tablet 00:00: 00 prednisone 2020-1 No mg 20 mg 2-15 tablet 00:00: 00 ibuprofen 2020-1 No 1mg 800 mg 1-10 tablet 00:00: 00 ibuprofen 2020-1 No 1mg 800 mg 1-10 tablet 00:00: 00 ibuprofen 2020-1 No 1mg 800 mg 1-10 tablet 00:00: 00 ibuprofen 2020-1 No 1mg 800 mg 1-10 tablet 00:00: 00 ibuprofen 2020-1 No 1mg 800 mg 1-10 tablet 00:00: 00 ibuprofen 2020-1 No 1mg 800 mg 1-10 tablet 00:00: 00 Lidoderm 5 2020-1 No 1% % topical 1-06 patch 00:00: 00 cyclobenzap 2020-1 No 1mg rine 5 mg 1-06 tablet 00:00: 00 Lidoderm 5 2020-1 No 1% % topical 1-06 patch 00:00: 00 cyclobenzap 2020-1 No 1mg rine 5 mg 1-06 tablet 00:00: 00 Lidoderm 5 2020-1 No 1% % topical 1-06 patch 00:00: 00 cyclobenzap 2019-11 No 1mg rine 5 mg 1-06 tablet 00:00: 00 Lidoderm 5 2019-1 No 1% % topical 1-06 patch 00:00: 00 cyclobenzap 2019-11 No 1mg rine 5 mg 1-06 tablet 00:00: 00 Lidoderm 5 2019-1 No 1% % topical 1-06 patch 00:00: 00 cyclobenzap 2019-11 No 1mg rine 5 mg 1-06 tablet 00:00: 00 Lidoderm 5 2019- No 1% % topical 1-06 patch 00:00: 00 cyclobenzap 2019-11 No 1mg rine 5 mg 1-06 tablet 00:00: 00 traMADol 2018-0 Yes 50mg Q6H Take 50 mg [facility] (ULTRAM) 50 4-[address] mg tablet 21:51: every 6 [facility] 23 (six) l hours as needed for moderate pain. aspirin-johnson 2018-0 Yes 1{tbl} Q6H Take 1 [facility] tamin[facility]- 4-[address] caffeine 21:51: [facility] (EXCEDRIN 23 every 6 l MIGRAINE) (six) 250-250-65 hours as mg per needed for tablet headaches. acetaminoph 2018-0 Yes 500mg Q6H Take 500 M ethodi en 4-[address] (TYLENOL) 21:51: [facility] 500 MG 23 every 6 l tablet (six) hours as needed for mild pain. traMADol 2018-0 Yes 50mg Q6H Take 50 mg [facility] (ULTRAM) 50 4-[address] mg tablet 21:51: every 6 [facility] 23 (six) l hours as needed for moderate pain. aspirin-johnson 2018-0 Yes 1{tbl} Q6H Take 1 [facility] taminophen- 4-[address] caffeine 21:51: [facility] (EXCEDRIN 23 every 6 l MIGRAINE) (six) 250-250-65 hours as mg per needed for tablet headaches. acetaminoph 2018-0 Yes 500mg Q6H Take 500 M ethodi en 4-[address] (TYLENOL) 21:51: [facility] 500 MG 23 every 6 l tablet (six) hours as needed for mild pain. traMADol 2018-0 Yes 50mg Q6H Take 50 mg [facility] (ULTRAM) 50 4-[address] mg tablet 21:51: every 6 [facility] 23 (six) l hours as needed for moderate pain. aspirin-johnson 2018-0 Yes 1{tbl} Q6H Take 1 [facility] taminophen- 4-[address] caffeine 21:51: [facility] (EXCEDRIN 23 every 6 l MIGRAINE) (six) 250-250-65 hours as mg per needed for tablet headaches. acetaminoph 2018-0 Yes 500mg Q6H Take 500 M ethodi en 4-[address] (TYLENOL) 21:51: [facility] 500 MG 23 every 6 l tablet (six) hours as needed for mild pain. traMADol 2018-0 Yes 50mg Q6H Take 50 mg [facility] (ULTRAM) 50 4-[address] mg tablet 21:51: every 6 [facility] 23 (six) l hours as needed for moderate pain. aspirin-johnson 2018-0 Yes 1{tbl} Q6H Take 1 [facility] tamin[facility]- 4-[address] caffeine 21:51: [facility] (EXCEDRIN 23 every 6 l MIGRAINE) (six) 250-250-65 hours as mg per needed for tablet headaches. acetaminoph 2018-0 Yes 500mg Q6H Take 500 M ethodi en 4-[address] (TYLENOL) 21:51: [facility] 500 MG 23 every 6 l tablet (six) hours as needed for mild pain. traMADol 2018-0 Yes 50mg Q6H Take 50 mg [facility] (ULTRAM) 50 4-[address] mg tablet 21:51: every 6 [facility] 23 (six) l hours as needed for moderate pain. aspirin-johnson 2018-0 Yes 1{tbl} Q6H Take 1 [facility] tamin[facility]- 4-[address] caffeine 21:51: [facility] (EXCEDRIN 23 every 6 l MIGRAINE) (six) 250-250-65 hours as mg per needed for tablet headaches. acetaminoph 2018-0 Yes 500mg Q6H Take 500 M ethodi en 4-[address] (TYLENOL) 21:51: [facility] 500 MG 23 every 6 l tablet (six) hours as needed for mild pain. traMADol 2018-0 Yes 50mg Q6H Take 50 mg [facility] (ULTRAM) 50 4-[address] mg tablet 21:51: every 6 [facility] 23 (six) l hours as needed for moderate pain. aspirin-johnson 2018-0 Yes 1{tbl} Q6H Take 1 [facility] taminophen- 4-[address] caffeine 21:51: [facility] (EXCEDRIN 23 every 6 l MIGRAINE) (six) 250-250-65 hours as mg per needed for tablet headaches. acetaminoph 2018-0 Yes 500mg Q6H Take 500 M ethodi en 4-[address] (TYLENOL) 21:51: [facility] 500 MG 23 every 6 l tablet (six) hours as needed for mild pain. traMADol 2018-0 Yes 50mg Q6H Take 50 mg [facility] (ULTRAM) 50 4-[address] mg tablet 21:51: every 6 [facility] 23 (six) l hours as needed for moderate pain. aspirin-johnson 2018-0 Yes 1{tbl} Q6H Take 1 [facility] taminophen- 4-[address] caffeine 21:51: [facility] (EXCEDRIN 23 every 6 l MIGRAINE) (six) 250-250-65 hours as mg per needed for tablet headaches. acetaminoph 2018-0 Yes 500mg Q6H Take 500 M ethodi en 4-[address] (TYLENOL) 21:51: [facility] 500 MG 23 every 6 l tablet (six) hours as needed for mild pain. traMADol 2018-0 Yes 50mg Q6H Take 50 mg [facility] (ULTRAM) 50 4-[address] mg tablet 21:51: every 6 [facility]pi [facility] 23 (six) l hours as needed for moderate pain. aspirin-johnson 2018-0 Yes 1{tbl} Q6H Take 1 [facility] taminophen- 4-[address] caffeine 21:51: [facility] (EXCEDRIN 23 every 6 l MIGRAINE) (six) 250-250-65 hours as mg per needed for tablet headaches. acetaminoph 2018-0 Yes 500mg Q6H Take 500 M ethodi en 4-[address] (TYLENOL) 21:51: [facility] 500 MG 23 every 6 l tablet (six) hours as needed for mild pain. Vital Signs Vital Name Observation Time Observation Value Comments Source Systolic blood 2023-01-01 23:44:00 130 mm[Hg] Univer sity of pressure [facility] Diastolic blood 2023-01-01 23:44:00 84 mm[Hg] Unive rsity of [facility] Heart rate 2023-01-01 23:44:00 80 /min [facility] Body temperature 2023-01-01 23:44:00 37.28 [facility] 2023-01-01 23:44:00 17 /min [facility] Body height 2023-01-01 23:44:00 165.1 cm [facility] Body weight 2023-01-01 23:44:00 90.22 kg [facility] BMI 2023-01-01 23:44:00 33.10 kg/m2 [facility] Oxygen saturation in 2023-01-01 23:44:00 95 /min [facility] Arterial blood by [facility] Pulse oximetry Branch BP Systolic 2022-07-12 17:45:00 130 mm[Hg] BP Diastolic 2022-07-12 17:45:00 94 mm[Hg] Weight Measured 2022-07-12 17:45:00 198.63 pounds Height Measured 2022-07-12 17:45:00 65.00 inches Body Temperature 2022-07-12 17:45:00 98.40 degrees Heart Rate 2022-07-12 17:45:00 86.00 /min Respiratory Rate 2022-07-12 17:45:00 21.00 /min BP Systolic 2022-07-10 08:21:00 BP Diastolic 2022-07-10 08:21:00 Weight Measured 2022-07-10 08:21:00 180.00 pounds Height Measured 2022-07-10 08:21:00 65.00 inches Body Temperature 2022-07-10 08:21:00 Heart Rate 2022-07-10 08:21:00 Respiratory Rate 2022-07-10 08:21:00 BP Systolic 2022-07-05 17:37:00 BP Diastolic 2022-07-05 17:37:00 Weight Measured 2022-07-05 17:37:00 190.00 pounds Height Measured 2022-07-05 17:37:00 65.00 inches Body Temperature 2022-07-05 17:37:00 Heart Rate 2022-07-05 17:37:00 Respiratory Rate 2022-07-05 17:37:00 BP Systolic 2022-06-07 17:01:00 120 mm[Hg] BP Diastolic 2022-06-07 17:01:00 84 mm[Hg] Weight Measured 2022-06-07 17:01:00 198.00 pounds Height Measured 2022-06-07 17:01:00 65.00 inches Body Temperature 2022-06-07 17:01:00 97.30 degrees Heart Rate 2022-06-07 17:01:00 66.00 /min Respiratory Rate 2022-06-07 17:01:00 BP Systolic 2021-11-09 16:14:00 128 mm[Hg] BP Diastolic 2021-11-09 16:14:00 86 mm[Hg] Weight Measured 2021-11-09 16:14:00 195.00 pounds Height Measured 2021-11-09 16:14:00 65.00 inches Body Temperature 2021-11-09 16:14:00 98.70 degrees Heart Rate 2021-11-09 16:14:00 70.00 /min Respiratory Rate 2021-11-09 16:14:00 16.00 /min BP Systolic 2021-10-12 09:02:00 126 mm[Hg] BP Diastolic 2021-10-12 09:02:00 85 mm[Hg] Weight Measured 2021-10-12 09:02:00 197.20 pounds Height Measured 2021-10-12 09:02:00 65.00 inches Body Temperature 2021-10-12 09:02:00 98.10 degrees Heart Rate 2021-10-12 09:02:00 84.00 /min Respiratory Rate 2021-10-12 09:02:00 16.00 /min BP Systolic 2021-09-20 15:10:00 123 mm[Hg] BP Diastolic 2021-09-20 15:10:00 84 mm[Hg] Weight Measured 2021-09-20 15:10:00 200.00 pounds Height Measured 2021-09-20 15:10:00 65.00 inches Body Temperature 2021-09-20 15:10:00 98.30 degrees Heart Rate 2021-09-20 15:10:00 71.00 /min Respiratory Rate 2021-09-20 15:10:00 18.00 /min BP Systolic 2021-09-12 15:38:00 115 mm[Hg] BP Diastolic 2021-09-12 15:38:00 73 mm[Hg] Weight Measured 2021-09-12 15:38:00 197.80 pounds Height Measured 2021-09-12 15:38:00 65.00 inches Body Temperature 2021-09-12 15:38:00 99.00 degrees Heart Rate 2021-09-12 15:38:00 95.00 /min Respiratory Rate 2021-09-12 15:38:00 BP Systolic 2021-08-29 11:15:00 BP Diastolic 2021-08-29 11:15:00 Weight Measured 2021-08-29 11:15:00 185.22 pounds Height Measured 2021-08-29 11:15:00 65.00 inches Body Temperature 2021-08-29 11:15:00 Heart Rate 2021-08-29 11:15:00 Respiratory Rate 2021-08-29 11:15:00 BP Systolic 2021-08-06 09:24:00 BP Diastolic 2021-08-06 09:24:00 Weight Measured 2021-08-06 09:24:00 185.00 pounds Height Measured 2021-08-06 09:24:00 64.00 inches Body Temperature 2021-08-06 09:24:00 Heart Rate 2021-08-06 09:24:00 Respiratory Rate 2021-08-06 09:24:00 BP Systolic 2021-07-26 08:15:00 122 mm[Hg] BP Diastolic 2021-07-26 08:15:00 70 mm[Hg] Weight Measured 2021-07-26 08:15:00 199.40 pounds Height Measured 2021-07-26 08:15:00 64.00 inches Body Temperature 2021-07-26 08:15:00 98.70 degrees Heart Rate 2021-07-26 08:15:00 63.00 /min Respiratory Rate 2021-07-26 08:15:00 BP Systolic 2021-05-03 10:37:00 137 mm[Hg] BP Diastolic 2021-05-03 10:37:00 87 mm[Hg] Weight Measured 2021-05-03 10:37:00 198.00 pounds Height Measured 2021-05-03 10:37:00 64.00 inches Body Temperature 2021-05-03 10:37:00 98.40 degrees Heart Rate 2021-05-03 10:37:00 68.00 /min Respiratory Rate 2021-05-03 10:37:00 17.00 /min BP Systolic 2021-04-16 13:32:00 127 mm[Hg] BP Diastolic 2021-04-16 13:32:00 83 mm[Hg] Weight Measured 2021-04-16 13:32:00 195.20 pounds Height Measured 2021-04-16 13:32:00 64.00 inches Body Temperature 2021-04-16 13:32:00 98.00 degrees Heart Rate 2021-04-16 13:32:00 74.00 /min Respiratory Rate 2021-04-16 13:32:00 17.00 /min BP Systolic 2020-12-25 10:12:00 125 mm[Hg] BP Diastolic 2020-12-25 10:12:00 83 mm[Hg] Weight Measured 2020-12-25 10:12:00 193.20 pounds Height Measured 2020-12-25 10:12:00 64.00 inches Body Temperature 2020-12-25 10:12:00 99.30 degrees Heart Rate 2020-12-25 10:12:00 70.00 /min Respiratory Rate 2020-12-25 10:12:00 Procedures Procedure Date / Time Performed Performing Clinician [facility] e ASSIGNMENT OF BENEFITS 2023-01-01 23:24:47 Doctor Unassigned, No [facility] Name [facility] REFERRAL- 2021-05-17 05:01:00 Doctor Unassigned, No [facility] REQUEST/RESPONSE Name [facility] Plan of Care Planned Activity Planned Date Details Comments Source Goal Plan of Care Note [code = 34338-6] Goal Plan of Care Note [code = 07202-1] Goal Plan of Care Note [code = 53992-8] Goal Plan of Care Note [code = 61121-2] Goal Plan of Care Note [code = 42669-6] Goal Plan of Care Note [code = 28101-6] Goal Plan of Care Note [code = 39522-2] Goal Plan of Care Note [code = 03972-3] Goal Plan of Care Note [code = 20866-2] Goal Plan of Care Note [code = 89099-7] Goal Plan of Care Note [code = 94638-2] Goal Plan of Care Note [code = 47731-2] Goal Plan of Care Note [code = 57738-4] Goal Plan of Care Note [code = 49344-8] Goal Plan of Care Note [code = 07585-0] Goal Plan of Care Note [code = 24654-2] Goal Plan of Care Note [code = 34428-4] Goal Plan of Care Note [code = 68468-3] Goal Plan of Care Note [code = 18528-4] Goal Plan of Care Note [code = 11054-7] Goal Plan of Care Note [code = 70681-1] Goal Plan of Care Note [code = 39797-5] Goal Plan of Care Note [code = 62967-1] Goal Plan of Care Note [code = 27155-0] Goal Plan of Care Note [code = 63185-6] Goal Plan of Care Note [code = 72701-7] Goal Plan of Care Note [code = 42577-7] Goal Plan of Care Note [code = 02768-9] Goal Plan of Care Note [code = 08249-9] Goal Plan of Care Note [code = 30893-8] Goal Plan of Care Note [code = 71709-6] Goal Plan of Care Note [code = 85053-1] Goal Plan of Care Note [code = 61663-3] Goal Plan of Care Note [code = 36490-5] Goal Plan of Care Note [code = 75538-8] Goal Plan of Care Note [code = 94182-3] Goal Plan of Care Note [code = 17987-9] Goal Plan of Care Note [code = 69538-0] Goal Plan of Care Note [code = 04840-4] Goal Plan of Care Note [code = 00616-3] Goal Plan of Care Note [code = 56533-0] Goal Plan of Care Note [code = 31014-6] Goal Plan of Care Note [code = 74661-8] Goal Plan of Care Note [code = 04603-4] Goal Plan of Care Note [code = 02435-4] Goal Plan of Care Note [code = 05639-8] Goal Plan of Care Note [code = 06718-3] Goal Plan of Care Note [code = 99407-8] Goal Plan of Care Note [code = 11968-7] Goal Plan of Care Note [code = 75126-6] Goal Plan of Care Note [code = 51992-5] Goal Plan of Care Note [code = 32664-3] Goal Plan of Care Note [code = 69826-6] Goal Plan of Care Note [code = 05484-6] Goal Plan of Care Note [code = 66116-8] Goal Plan of Care Note [code = 51086-2] Goal Plan of Care Note [code = 80469-7] Goal Plan of Care Note [code = 59862-1] Goal Plan of Care Note [code = 70958-3] Goal Plan of Care Note [code = 18928-5] Goal Plan of Care Note [code = 85525-0] Goal Plan of Care Note [code = 93327-5] Goal Plan of Care Note [code = 25262-5] Goal Plan of Care Note [code = 03766-2] Goal Plan of Care Note [code = 18400-8] Goal Plan of Care Note [code = 36991-7] Goal Plan of Care Note [code = 62862-8] Goal Plan of Care Note [code = 15842-1] Goal Plan of Care Note [code = 73895-8] Goal Plan of Care Note [code = 15897-2] Goal Plan of Care Note [code = 44339-3] Goal Plan of Care Note [code = 38178-9] Goal Plan of Care Note [code = 88154-8] Goal Plan of Care Note [code = 14358-5] Goal Plan of Care Note [code = 48366-4] Goal Plan of Care Note [code = 70903-3] Goal Plan of Care Note [code = 28147-7] Goal Plan of Care Note [code = 38023-3] Goal Plan of Care Note [code = 57785-9] Goal Plan of Care Note [code = 21412-8] Goal Plan of Care Note [code = 73061-1] Goal Plan of Care Note [code = 13152-7] Goal Plan of Care Note [code = 75577-7] Goal Plan of Care Note [code = 45677-2] Goal Plan of Care Note [code = 42707-4] Goal Plan of Care Note [code = 72171-8] Goal Plan of Care Note [code = 27459-3] Goal Plan of Care Note [code = 17514-2] Goal Plan of Care Note [code = 08798-9] Goal Plan of Care Note [code = 06785-5] Goal Plan of Care Note [code = 50718-5] Goal Plan of Care Note [code = 72430-7] Goal Plan of Care Note [code = 71835-0] Goal Plan of Care Note [code = 94482-0] Goal Plan of Care Note [code = 24422-6] Goal Plan of Care Note [code = 88389-8] Goal Plan of Care Note [code = 65836-1] Goal Plan of Care Note [code = 49870-3] Goal Plan of Care Note [code = 54197-9] Goal Plan of Care Note [code = 03336-6] Goal Plan of Care Note [code = 80032-9] Goal Plan of Care Note [code = 33408-0] Goal Plan of Care Note [code = 00444-4] Goal Plan of Care Note [code = 20150-5] Goal Plan of Care Note [code = 28687-1] Goal Plan of Care Note [code = 75132-2] Goal Plan of Care Note [code = 45556-8] Goal Plan of Care Note [code = 24741-0] Goal Plan of Care Note [code = 84007-5] Goal Plan of Care Note [code = 66569-1] Goal Plan of Care Note [code = 98784-6] Goal Plan of Care Note [code = 66370-4] Goal Plan of Care Note [code = 60304-6] Goal Plan of Care Note [code = 87395-4] Goal Plan of Care Note [code = 79393-2] Goal Plan of Care Note [code = 32885-1] Goal Plan of Care Note [code = 85032-7] Goal Plan of Care Note [code = 97899-8] Goal Plan of Care Note [code = 82619-3] Goal Plan of Care Note [code = 32190-7] Goal Plan of Care Note [code = 55713-1] Goal Plan of Care Note [code = 29832-3] Goal Plan of Care Note [code = 28215-0] Goal Plan of Care Note [code = 43353-6] Goal Plan of Care Note [code = 71576-0] Goal Plan of Care Note [code = 67163-5] Goal Plan of Care Note [code = 53508-4] Goal Plan of Care Note [code = 99578-2] Goal Plan of Care Note [code = 20592-7] Goal Plan of Care Note [code = 35378-1] Goal Plan of Care Note [code = 87901-5] Goal Plan of Care Note [code = 91790-0] Goal Plan of Care Note [code = 21503-3] Goal Plan of Care Note [code = 52380-0] Goal Plan of Care Note [code = 01021-3] Goal Plan of Care Note [code = 45595-4] Goal Plan of Care Note [code = 12300-2] Goal Plan of Care Note [code = 93414-8] Goal Plan of Care Note [code = 13142-2] Goal Plan of Care Note [code = 19975-3] Goal Plan of Care Note [code = 80003-3] Goal Plan of Care Note [code = 44883-5] Goal Plan of Care Note [code = 27889-8] Goal Plan of Care Note [code = 19599-1] Goal Plan of Care Note [code = 53285-9] Goal Plan of Care Note [code = 42360-1] Goal Plan of Care Note [code = 60769-5] Goal Plan of Care Note [code = 99377-5] Goal Plan of Care Note [code = 69561-0] Goal Plan of Care Note [code = 57787-8] Goal Plan of Care Note [code = 73585-0] Goal Plan of Care Note [code = 14802-2] Goal Plan of Care Note [code = 27942-0] Goal Plan of Care Note [code = 02593-8] Goal Plan of Care Note [code = 48666-3] Goal Plan of Care Note [code = 63671-6] Goal Plan of Care Note [code = 53170-6] Goal Plan of Care Note [code = 63048-6] Goal Plan of Care Note [code = 36996-4] Goal Plan of Care Note [code = 97741-8] Goal Plan of Care Note [code = 79608-1] Goal Plan of Care Note [code = 47079-1] Goal Plan of Care Note [code = 79730-3] Goal Plan of Care Note [code = 97135-3] Goal Plan of Care Note [code = 82805-0] Goal Plan of Care Note [code = 42427-7] Goal Plan of Care Note [code = 95934-2] Goal Plan of Care Note [code = 41603-3] Goal Plan of Care Note [code = 97411-6] Goal Plan of Care Note [code = 51094-9] Goal Plan of Care Note [code = 53510-0] Goal Plan of Care Note [code = 11737-2] Goal Plan of Care Note [code = 12359-7] Goal Plan of Care Note [code = 43536-9] Goal Plan of Care Note [code = 74499-3] Goal Plan of Care Note [code = 17378-4] Goal Plan of Care Note [code = 57140-9] Goal Plan of Care Note [code = 44338-3] Goal Plan of Care Note [code = 47757-2] Goal Plan of Care Note [code = 68416-8] Goal Plan of Care Note [code = 33739-4] Goal Plan of Care Note [code = 85260-5] Goal Plan of Care Note [code = 90377-5] Goal Plan of Care Note [code = 44898-9] Goal Plan of Care Note [code = 71598-3] Goal Plan of Care Note [code = 98452-7] Goal Plan of Care Note [code = 36645-3] Goal Plan of Care Note [code = 64122-3] Goal Plan of Care Note [code = 86950-7] Goal Plan of Care Note [code = 07533-4] Goal Plan of Care Note [code = 74464-3] Goal Plan of Care Note [code = 00414-2] Goal Plan of Care Note [code = 89922-0] Goal Plan of Care Note [code = 62796-0] Goal Plan of Care Note [code = 35194-4] Goal Plan of Care Note [code = 73411-5] Goal Plan of Care Note [code = 32892-3] Goal Plan of Care Note [code = 78520-6] Goal Plan of Care Note [code = 66016-0] Goal Plan of Care Note [code = 27718-9] Goal Plan of Care Note [code = 78955-2] Goal Plan of Care Note [code = 97278-5] Goal Plan of Care Note [code = 03937-0] Goal Plan of Care Note [code = 69654-3] Goal Plan of Care Note [code = 45562-2] Goal Plan of Care Note [code = 09292-3] Goal Plan of Care Note [code = 12010-2] Goal Plan of Care Note [code = 57486-6] Goal Plan of Care Note [code = 29426-7] Goal Plan of Care Note [code = 78592-2] Goal Plan of Care Note [code = 23610-7] Goal Plan of Care Note [code = 24026-1] Goal Plan of Care Note [code = 78811-3] Goal Plan of Care Note [code = 35605-4] Goal Plan of Care Note [code = 93101-2] Goal Plan of Care Note [code = 33365-5] Goal Plan of Care Note [code = 22399-0] Goal Plan of Care Note [code = 22974-8] Goal Plan of Care Note [code = 40871-6] Goal Plan of Care Note [code = 64912-4] Goal Plan of Care Note [code = 65576-1] Goal Plan of Care Note [code = 15460-5] Goal Plan of Care Note [code = 94727-8] Goal Plan of Care Note [code = 50325-9] Goal Plan of Care Note [code = 91892-1] Goal Plan of Care Note [code = 98451-6] Goal Plan of Care Note [code = 53508-5] Goal Plan of Care Note [code = 79058-7] Encounters Start End Encounter Admission Attending Care Care Encounter Source Date/Time Date/Time Type Type Clinicians Facility Department ID 2023-05-15 2023-05-15 Outpatient DEBRA RICHARDSON [id number] Kj 13:40:40 13:40:40 0711 Laci Estes 2023-01-01 2023-01-01 Outpatient Amanda JOHNSTON [facility] [id number] Univers 17:20:00 18:27:12 RANIA ity of [facility] 2023-01-01 2023-01-01 Urgent Gloria Johnston [facility] 1.2.840.114 [id number] Univers 17:20:00 17:40:00 Care Unknown, Attending HEALTH 350.1.13.10 [facility]y of [facility] 4.2.7.2.686 Jorge as VALERIE?BLEA [id number] Tn dical [address] MEDICAL OFFICE BUILDING 2023-01-01 2023-01-01 Orders Doctor KELLY 1.2.840.114 [id number] Univers 00:00:00 00:00:00 Only Unassigned, JACQUI 350.1.13.10 ity of [place] [facility] 4.2.7.2.686 Jorge as [id number] [address] 2022-12-15 2022-12-15 Outpatient [facility] [id number] Kj 13:38:35 13:38:35 0210 F Luxora 2022-08-22 2022-08-22 Outpatient SFA [facility] [id number] 022 Kj 17:40:11 17:40:11 1018 F [place] 2022-07-12 2022-07-12 Outpatient [id number] [id number] 00:00:00 00:00:00 Visit 76dc-4b06 6dc-4b06-9 -2d63-i68 g57-r411fj 6dese209j or132p 2022-07-10 2022-07-10 Outpatient [id number]- [id number] 7ghj02-d 00:00:00 00:00:00 Visit d0ko-75sw 0ee-45cf-9 -938b-5a1 38b-5a1a1c r6aci0r71 ac8f05 2022-07-05 2022-07-05 Outpatient [id number]- [id number] 1vl947-g 00:00:00 00:00:00 Visit z67s-8281 83a-4586-a -m79i-5r5 21d-4f4bd8 gm4188uoo 078bde 2022-06-07 2022-06-07 Outpatient [id number]- [id number] 1i620l-n 00:00:00 00:00:00 Visit z7l5-47y6 3m1-07a2-0 -3s95-c8c m93-m3eas6 vk466z364 44g531 2022-05-17 2022-05-17 Outpatient [id number]- [id number] 72vp84-2 00:00:00 00:00:00 Visit 1027-9535 048-4700-8 -88db-962 8db-9626fc 3rlc51bz3 d71ae7 2022-05-10 2022-05-10 Outpatient 2b69w32r- [id number] 70b91r-v 00:00:00 00:00:00 Visit c807-8d85 762-4a90-b -l3r2-0m3 9u4-3m555y 47g492v74 388b78 2021-07-12 2021-07-12 Letter KELLY Rodrigues 1.2.840.114 [id number] Univers 00:00:00 00:00:00 (Out) Harriett OSMAN 350.1.13.10 it y of HOSPITAL 4.2.7.2.686 Jorge as [id number] [facility] [address] 2021-05-17 2021-05-17 Orders Doctor KELLY 1.2.840.114 [id number] Univers 00:00:00 00:00:00 Only Unassigned, JACQUI 350.1.13.10 ity of [place] [facility] 4.2.7.2.686 Jorge as [id number] [facility] [address] 2017-12-10 2017-12-10 Departed [facility] [id number] 15:39:00 16:35:00 Emergency 69 [facility] Results Test Description Test Time Test Comments Results Result Comments Source SARS-CoV-2 (COVID-19), RT-PCR/TMA 2021-11-30 08:40:41 Test Item Value Reference Range Interpretation Comme nts SARS-CoV-2 INTERPRETATION POSITIVE SEE NOTE A S ARS-CoV-2 RNA DETECTEDPositive (test code = 44498) results are indicative of the presence of SURINDER S-CoV-2 RNA;clinical co rrelation with patient history and other diagnosticinfor mation is necessary to de termine patient infection statu s.Positive results do not rule out bacterial infection or co -infectionwith other viruses. Positive and negative predic tive values oftesting are h ighly dependent on prevalence. SOURCE (test code = 22145) NASOPHARYNGEAL Note: Methodology is Vielka Odilon Real-Time RT-PC R. The expected result or refer ence range is NEGATIVE (Not D etected). For more information reg arding COVID-19 testing to incl ude clinicalinforma tion, methodology detail, intende d use, FDA authorization a ndrecommended fact sheets for rolly ents or healthcare providers, see [facility] Announcement: S ARS-CoV-2 (COVID-19) by N AAT at URL below (note,fact shee ts are provided by method given in report:https:// [email or web address]/cl [email or web address]/client -communications/ Alternatively, see downloadable PDF fact sheet at:https://www. [email or web address].[email or web address]/COVID- 19-RT-PCR UNLES S OTHERWISE INDICATED, ALL TESTING PERFORMED [facility], [place] [address] 4 BEHAVIORAL GENETICIST: WELLINGTON BLANC M.D. CLIA NUMBER [id number] CAP ACCREDITATION N O. [id number] SARS-CoV-2 (COVID-19) by RT-PCR (HIGH RISK)2021-11-30 00:00:00 Test Item Value Reference Range Interpretation Comments SARS-CoV-2 INTERPRETATION POSITIVE (test code = 55922) SOURCE (test code = 47147) NASOPHARYNGEAL SARS-CoV-2 (COVID-19) by RT-PCR (HIGH RISK)2021-11-30 00:00:00 Test Item Value Reference Range Interpretation Comments SARS-CoV-2 INTERPRETATION POSITIVE (test code = 82649) SOURCE (test code = 59322) NASOPHARYNGEAL SARS-CoV-2 (COVID-19) by RT-PCR (HIGH RISK)2021-11-30 00:00:00 Test Item Value Reference Range Interpretation Comments SARS-CoV-2 INTERPRETATION POSITIVE (test code = 81095) SOURCE (test code = 52089) NASOPHARYNGEAL SARS-CoV-2 (COVID-19) by RT-PCR (HIGH RISK)2021-11-30 00:00:00 Test Item Value Reference Range Interpretation Comments SARS-CoV-2 INTERPRETATION POSITIVE (test code = 20296) SOURCE (test code = 15795) NASOPHARYNGEAL SARS-CoV-2 (COVID-19) by RT-PCR (HIGH RISK)2021-11-30 00:00:00 Test Item Value Reference Range Interpretation Comments SARS-CoV-2 INTERPRETATION POSITIVE (test code = 89567) SOURCE (test code = 47702) NASOPHARYNGEAL SARS-CoV-2 (COVID-19) by RT-PCR (HIGH RISK)2021-11-30 00:00:00 Test Item Value Reference Range Interpretation Comments SARS-CoV-2 INTERPRETATION POSITIVE (test code = 02548) SOURCE (test code = 41332) NASOPHARYNGEAL SARS-CoV-2 (COVID-19) by RT-PCR (HIGH RISK)2021-11-30 00:00:00 Test Item Value Reference Range Interpretation Comments SARS-CoV-2 INTERPRETATION POSITIVE (test code = 21199) SOURCE (test code = 32310) NASOPHARYNGEAL SARS-CoV-2 (COVID-19) by RT-PCR (HIGH RISK)2021-11-30 00:00:00 Test Item Value Reference Range Interpretation Comments SARS-CoV-2 INTERPRETATION POSITIVE (test code = 57016) SOURCE (test code = 27640) NASOPHARYNGEAL SARS-CoV-2 (COVID-19) by RT-PCR (HIGH RISK)2021-11-30 00:00:00 Test Item Value Reference Range Interpretation Comments SARS-CoV-2 INTERPRETATION POSITIVE (test code = 59448) SOURCE (test code = 21932) NASOPHARYNGEAL SARS-CoV-2 (COVID-19), RT-PCR/[id number] 13:12:43 Test Item Value Reference Interpretation Comments Range SARS-CoV-2 POSITIVE SEE NOTE A SARS-CoV-2 RNA INTERPRETATION DETECTEDPosit rosa results (test code = are indicative of the [address]) presence of SURINDER S-CoV-2 RNA;clinical co rrelation with patient hi story and other diagnosticinfor mation is necessary to de termine patient infecti on status.Positive results do not rule out bacterial infec tion or co-infectionwit h other viruses. Positi ve and negative predic tive values oftestin g are highly dependen t on prevalence. SOURCE (test code NASOPHARYNGEAL Note: M ethodology is = 84087) Vielka Odilon Cherelle l-Time RT-PCR. The exp ected result or refer ence range is NEGATI VE (Not Detected). For more information reg arding COVID-19 testin g to include clinicalinforma tion, methodology det ail, intended use, F DA authorization andrecommended fact sheets for rolly ents or healthcare prov iders, see [facility] Announcement: S ARS-CoV-2 (COVID-19) by N AAT at URL below (note ,fact sheets are prov ided by method given in report:https:// www.[employer]/[email or web address] ns/client -communications / Alternatively, see downloadable PD F fact sheet at:https://www. [employer] om/YVDZV-49-QQ- PCR UNLESS OTHERWIS E INDICATED, ALL TESTING PERFORMED [facility] [employer] [address] [place] [address] 4 LABORATORY DIRE CTOR: WELLINGTON THOMPSON M.D. CLIA NUMBER [id number] [place] [id number] SARS-CoV-2 (COVID-19) by RT-PCR (HIGH RISK)2021-11-23 00:00:00 Test Item Value Reference Range Interpretation Comments SARS-CoV-2 INTERPRETATION POSITIVE (test code = 26302) SOURCE (test code = 82843) NASOPHARYNGEAL SARS-CoV-2 (COVID-19) by RT-PCR (HIGH RISK)2021-11-23 00:00:00 Test Item Value Reference Range Interpretation Comments SARS-CoV-2 INTERPRETATION POSITIVE (test code = 93095) SOURCE (test code = 67255) NASOPHARYNGEAL SARS-CoV-2 (COVID-19) by RT-PCR (HIGH RISK)2021-11-23 00:00:00 Test Item Value Reference Range Interpretation Comments SARS-CoV-2 INTERPRETATION POSITIVE (test code = 88308) SOURCE (test code = 40376) NASOPHARYNGEAL SARS-CoV-2 (COVID-19) by RT-PCR (HIGH RISK)2021-11-23 00:00:00 Test Item Value Reference Range Interpretation Comments SARS-CoV-2 INTERPRETATION POSITIVE (test code = 88011) SOURCE (test code = 50836) NASOPHARYNGEAL SARS-CoV-2 (COVID-19) by RT-PCR (HIGH RISK)2021-11-23 00:00:00 Test Item Value Reference Range Interpretation Comments SARS-CoV-2 INTERPRETATION POSITIVE (test code = 37634) SOURCE (test code = 09253) NASOPHARYNGEAL SARS-CoV-2 (COVID-19) by RT-PCR (HIGH RISK)2021-11-23 00:00:00 Test Item Value Reference Range Interpretation Comments SARS-CoV-2 INTERPRETATION POSITIVE (test code = 33348) SOURCE (test code = 23318) NASOPHARYNGEAL SARS-CoV-2 (COVID-19) by RT-PCR (HIGH RISK)2021-11-23 00:00:00 Test Item Value Reference Range Interpretation Comments SARS-CoV-2 INTERPRETATION POSITIVE (test code = 65347) SOURCE (test code = 44921) NASOPHARYNGEAL SARS-CoV-2 (COVID-19) by RT-PCR (HIGH RISK)2021-11-23 00:00:00 Test Item Value Reference Range Interpretation Comments SARS-CoV-2 INTERPRETATION POSITIVE (test code = 94904) SOURCE (test code = 00828) NASOPHARYNGEAL SARS-CoV-2 (COVID-19) by RT-PCR (HIGH RISK)2021-11-23 00:00:00 Test Item Value Reference Range Interpretation Comments SARS-CoV-2 INTERPRETATION POSITIVE (test code = 20638) SOURCE (test code = 84777) NASOPHARYNGEAL [id number] 00:00:00 Test Item Value Reference Range Interpretation Comments TESTOSTERONE (test code = 2830) 60 NG/DL [id number] 00:00:00 Test Item Value Reference Range Interpretation Comments ESTRADIOL (test code = 2505) 111.0 PG/ML [id number] 00:00:00 Test Item Value Reference Range Interpretation Comments ESTRADIOL (test code = 2505) 111.0 PG/ML FSH + LH [id number] 00:00:00 Test Item Value Reference Range Interpretation Comments FOLLICLE STIM HORMONE (test code = 6.5 IU/L 2700) LUTEINIZING HORMONE (test code = 38.4 IU/L 2776) [id number] 00:00:00 Test Item Value Reference Range Interpretation Comments PROGESTERONE (test code = 2790) 0.93 NG/ML [id number] 00:00:00 Test Item Value Reference Range Interpretation Comments RPR RESULT (test code = NON-REACTIVE 5375) RPR TITER (test code = 3500) NOT INDIC. TITER [id number] 00:00:00 Test Item Value Reference Range Interpretation Comments RPR RESULT (test code = NON-REACTIVE 3501) RPR TITER (test code = 3500) NOT INDIC. TITER HIV AB/AG COMBO RFLX [id number] 00:00:00 Test Item Value Reference Range Interpretation Comments HIV 1/2 4TH GEN, RFLX CONF (test NON-REACTIVE code = 3514) GC AND CHLAMYDIA, AMPLIFIED, [id number] 00:00:00 Test Item Value Reference Range Interpretation Comments GONORRHEA, NAAT (test code = 47035) NEGATIVE CHLAMYDIA, NAAT (test code = 32295) NEGATIVE [id number] 00:00:00 Test Item Value Reference Range Interpretation Comments TSH, THIRD GENERATION (test code 1.920 UIU/ML = 2821) [id number] 00:00:00 Test Item Value Reference Range Interpretation Comments TSH, THIRD GENERATION (test code 1.920 UIU/ML = 2821) [id number] 00:00:00 Test Item Value Reference Range Interpretation Comments TESTOSTERONE (test code = 2830) 60 NG/DL [id number] 00:00:00 Test Item Value Reference Range Interpretation Comments TESTOSTERONE (test code = 2830) 60 NG/DL [id number] 00:00:00 Test Item Value Reference Range Interpretation Comments ESTRADIOL (test code = 2505) 111.0 PG/ML [id number] 00:00:00 Test Item Value Reference Range Interpretation Comments ESTRADIOL (test code = 2505) 111.0 PG/ML [id number] 00:00:00 Test Item Value Reference Range Interpretation Comments ESTRADIOL (test code = 2505) 111.0 PG/ML FSH + LH [id number] 00:00:00 Test Item Value Reference Range Interpretation Comments FOLLICLE STIM HORMONE (test code = 6.5 IU/L 2700) LUTEINIZING HORMONE (test code = 38.4 IU/L 2776) FSH + LH [id number] 00:00:00 Test Item Value Reference Range Interpretation Comments FOLLICLE STIM HORMONE (test code = 6.5 IU/L 2700) LUTEINIZING HORMONE (test code = 38.4 IU/L 2776) [id number] 00:00:00 Test Item Value Reference Range Interpretation Comments PROGESTERONE (test code = 2790) 0.93 NG/ML [id number] 00:00:00 Test Item Value Reference Range Interpretation Comments PROGESTERONE (test code = 2790) 0.93 NG/ML [id number] 00:00:00 Test Item Value Reference Range Interpretation Comments RPR RESULT (test code = NON-REACTIVE 3501) RPR TITER (test code = 3500) NOT INDIC. TITER [id number] 00:00:00 Test Item Value Reference Range Interpretation Comments RPR RESULT (test code = NON-REACTIVE 3501) RPR TITER (test code = 3500) NOT INDIC. TITER [id number] 00:00:00 Test Item Value Reference Range Interpretation Comments RPR RESULT (test code = NON-REACTIVE 3501) RPR TITER (test code = 3500) NOT INDIC. TITER HIV AB/AG COMBO RFLX [id number] 00:00:00 Test Item Value Reference Range Interpretation Comments HIV 1/2 4TH GEN, RFLX CONF (test NON-REACTIVE code = 3514) HIV AB/AG COMBO RFLX [id number] 00:00:00 Test Item Value Reference Range Interpretation Comments HIV 1/2 4TH GEN, RFLX CONF (test NON-REACTIVE code = 3514) GC AND CHLAMYDIA, AMPLIFIED, [id number] 00:00:00 Test Item Value Reference Range Interpretation Comments GONORRHEA, NAAT (test code = 56283) NEGATIVE CHLAMYDIA, NAAT (test code = 38108) NEGATIVE GC AND CHLAMYDIA, AMPLIFIED, [id number] 00:00:00 Test Item Value Reference Range Interpretation Comments GONORRHEA, NAAT (test code = 90169) NEGATIVE CHLAMYDIA, NAAT (test code = 26053) NEGATIVE [id number] 00:00:00 Test Item Value Reference Range Interpretation Comments TSH, THIRD GENERATION (test code 1.920 UIU/ML = 2821) [id number] 00:00:00 Test Item Value Reference Range Interpretation Comments TSH, THIRD GENERATION (test code 1.920 UIU/ML = 2821) [id number] 00:00:00 Test Item Value Reference Range Interpretation Comments TSH, THIRD GENERATION (test code 1.920 UIU/ML = 2821) [id number] 00:00:00 Test Item Value Reference Range Interpretation Comments TESTOSTERONE (test code = 2830) 60 NG/DL [id number] 00:00:00 Test Item Value Reference Range Interpretation Comments TESTOSTERONE (test code = 2830) 60 NG/DL [id number] 00:00:00 Test Item Value Reference Range Interpretation Comments ESTRADIOL (test code = 2505) 111.0 PG/ML [id number] 00:00:00 Test Item Value Reference Range Interpretation Comments ESTRADIOL (test code = 2505) 111.0 PG/ML [id number] 00:00:00 Test Item Value Reference Range Interpretation Comments ESTRADIOL (test code = 2505) 111.0 PG/ML FSH + LH [id number] 00:00:00 Test Item Value Reference Range Interpretation Comments FOLLICLE STIM HORMONE (test code = 6.5 IU/L 2700) LUTEINIZING HORMONE (test code = 38.4 IU/L 2776) FSH + LH [id number] 00:00:00 Test Item Value Reference Range Interpretation Comments FOLLICLE STIM HORMONE (test code = 6.5 IU/L 2700) LUTEINIZING HORMONE (test code = 38.4 IU/L 2776) [id number] 00:00:00 Test Item Value Reference Range Interpretation Comments PROGESTERONE (test code = 2790) 0.93 NG/ML [id number] 00:00:00 Test Item Value Reference Range Interpretation Comments PROGESTERONE (test code = 2790) 0.93 NG/ML [id number] 00:00:00 Test Item Value Reference Range Interpretation Comments RPR RESULT (test code = NON-REACTIVE 3501) RPR TITER (test code = 3500) NOT INDIC. TITER [id number] 00:00:00 Test Item Value Reference Range Interpretation Comments RPR RESULT (test code = NON-REACTIVE 3501) RPR TITER (test code = 3500) NOT INDIC. TITER [id number] 00:00:00 Test Item Value Reference Range Interpretation Comments RPR RESULT (test code = NON-REACTIVE 3501) RPR TITER (test code = 3500) NOT INDIC. TITER HIV AB/AG COMBO RFLX [id number] 00:00:00 Test Item Value Reference Range Interpretation Comments HIV 1/2 4TH GEN, RFLX CONF (test NON-REACTIVE code = 3514) HIV AB/AG COMBO RFLX [id number] 00:00:00 Test Item Value Reference Range Interpretation Comments HIV 1/2 4TH GEN, RFLX CONF (test NON-REACTIVE code = 3514) GC AND CHLAMYDIA, AMPLIFIED, [id number] 00:00:00 Test Item Value Reference Range Interpretation Comments GONORRHEA, NAAT (test code = 84367) NEGATIVE CHLAMYDIA, NAAT (test code = 60420) NEGATIVE GC AND CHLAMYDIA, AMPLIFIED, [id number] 00:00:00 Test Item Value Reference Range Interpretation Comments GONORRHEA, NAAT (test code = 76415) NEGATIVE CHLAMYDIA, NAAT (test code = 69364) NEGATIVE [id number] 00:00:00 Test Item Value Reference Range Interpretation Comments TSH, THIRD GENERATION (test code 1.920 UIU/ML = 2821) [id number] 00:00:00 Test Item Value Reference Range Interpretation Comments TSH, THIRD GENERATION (test code 1.920 UIU/ML = 2821) [id number] 00:00:00 Test Item Value Reference Range Interpretation Comments TSH, THIRD GENERATION (test code 1.920 UIU/ML = 2821) [id number] 00:00:00 Test Item Value Reference Range Interpretation Comments TESTOSTERONE (test code = 2830) 60 NG/DL [id number] 00:00:00 Test Item Value Reference Range Interpretation Comments TESTOSTERONE (test code = 2830) 60 NG/DL [id number] 00:00:00 Test Item Value Reference Range Interpretation Comments ESTRADIOL (test code = 2505) 111.0 PG/ML [id number] 00:00:00 Test Item Value Reference Range Interpretation Comments ESTRADIOL (test code = 2505) 111.0 PG/ML [id number] 00:00:00 Test Item Value Reference Range Interpretation Comments ESTRADIOL (test code = 2505) 111.0 PG/ML FSH + LH [id number] 00:00:00 Test Item Value Reference Range Interpretation Comments FOLLICLE STIM HORMONE (test code = 6.5 IU/L 2700) LUTEINIZING HORMONE (test code = 38.4 IU/L 2776) FSH + LH [id number] 00:00:00 Test Item Value Reference Range Interpretation Comments FOLLICLE STIM HORMONE (test code = 6.5 IU/L 2700) LUTEINIZING HORMONE (test code = 38.4 IU/L 2776) [id number] 00:00:00 Test Item Value Reference Range Interpretation Comments PROGESTERONE (test code = 2790) 0.93 NG/ML [id number] 00:00:00 Test Item Value Reference Range Interpretation Comments PROGESTERONE (test code = 2790) 0.93 NG/ML [id number] 00:00:00 Test Item Value Reference Range Interpretation Comments RPR RESULT (test code = NON-REACTIVE 3501) RPR TITER (test code = 3500) NOT INDIC. TITER [id number] 00:00:00 Test Item Value Reference Range Interpretation Comments RPR RESULT (test code = NON-REACTIVE 3501) RPR TITER (test code = 3500) NOT INDIC. TITER [id number] 00:00:00 Test Item Value Reference Range Interpretation Comments RPR RESULT (test code = NON-REACTIVE 3501) RPR TITER (test code = 3500) NOT INDIC. TITER HIV AB/AG COMBO RFLX [id number] 00:00:00 Test Item Value Reference Range Interpretation Comments HIV 1/2 4TH GEN, RFLX CONF (test NON-REACTIVE code = 3514) HIV AB/AG COMBO RFLX [id number] 00:00:00 Test Item Value Reference Range Interpretation Comments HIV 1/2 4TH GEN, RFLX CONF (test NON-REACTIVE code = 3514) GC AND CHLAMYDIA, AMPLIFIED, [id number] 00:00:00 Test Item Value Reference Range Interpretation Comments GONORRHEA, NAAT (test code = 55835) NEGATIVE CHLAMYDIA, NAAT (test code = 51727) NEGATIVE GC AND CHLAMYDIA, AMPLIFIED, [id number] 00:00:00 Test Item Value Reference Range Interpretation Comments GONORRHEA, NAAT (test code = 55338) NEGATIVE CHLAMYDIA, NAAT (test code = 13123) NEGATIVE [id number] 00:00:00 Test Item Value Reference Range Interpretation Comments TSH, THIRD GENERATION (test code 1.920 UIU/ML = 2821) [id number] 00:00:00 Test Item Value Reference Range Interpretation Comments TSH, THIRD GENERATION (test code 1.920 UIU/ML = 2821) [id number] 00:00:00 Test Item Value Reference Range Interpretation Comments TSH, THIRD GENERATION (test code 1.920 UIU/ML = 2821) [id number] 00:00:00 Test Item Value Reference Range Interpretation Comments TESTOSTERONE (test code = 2830) 60 NG/DL [id number] 00:00:00 Test Item Value Reference Range Interpretation Comments ESTRADIOL (test code = 2505) 111.0 PG/ML [id number] 00:00:00 Test Item Value Reference Range Interpretation Comments ESTRADIOL (test code = 2505) 111.0 PG/ML FSH + LH [id number] 00:00:00 Test Item Value Reference Range Interpretation Comments FOLLICLE STIM HORMONE (test code = 6.5 IU/L 2700) LUTEINIZING HORMONE (test code = 38.4 IU/L 2776) [id number] 00:00:00 Test Item Value Reference Range Interpretation Comments PROGESTERONE (test code = 2790) 0.93 NG/ML [id number] 00:00:00 Test Item Value Reference Range Interpretation Comments RPR RESULT (test code = NON-REACTIVE 3501) RPR TITER (test code = 3500) NOT INDIC. TITER [id number] 00:00:00 Test Item Value Reference Range Interpretation Comments RPR RESULT (test code = NON-REACTIVE 3501) RPR TITER (test code = 3500) NOT INDIC. TITER HIV AB/AG COMBO RFLX [id number] 00:00:00 Test Item Value Reference Range Interpretation Comments HIV 1/2 4TH GEN, RFLX CONF (test NON-REACTIVE code = 3514) GC AND CHLAMYDIA, AMPLIFIED, [id number] 00:00:00 Test Item Value Reference Range Interpretation Comments GONORRHEA, NAAT (test code = 61646) NEGATIVE CHLAMYDIA, NAAT (test code = 02894) NEGATIVE [id number] 00:00:00 Test Item Value Reference Range Interpretation Comments TSH, THIRD GENERATION (test code 1.920 UIU/ML = 2821) [id number] 00:00:00 Test Item Value Reference Range Interpretation Comments TSH, THIRD GENERATION (test code 1.920 UIU/ML = 2821) [id number] 00:00:00 Test Item Value Reference Range Interpretation Comments TESTOSTERONE (test code = 2830) 60 NG/DL [id number] 00:00:00 Test Item Value Reference Range Interpretation Comments ESTRADIOL (test code = 2505) 111.0 PG/ML [id number] 00:00:00 Test Item Value Reference Range Interpretation Comments ESTRADIOL (test code = 2505) 111.0 PG/ML FSH + LH [id number] 00:00:00 Test Item Value Reference Range Interpretation Comments FOLLICLE STIM HORMONE (test code = 6.5 IU/L 2700) LUTEINIZING HORMONE (test code = 38.4 IU/L 2776) [id number] 00:00:00 Test Item Value Reference Range Interpretation Comments PROGESTERONE (test code = 2790) 0.93 NG/ML [id number] 00:00:00 Test Item Value Reference Range Interpretation Comments RPR RESULT (test code = NON-REACTIVE 3501) RPR TITER (test code = 3500) NOT INDIC. TITER [id number] 00:00:00 Test Item Value Reference Range Interpretation Comments RPR RESULT (test code = NON-REACTIVE 3501) RPR TITER (test code = 3500) NOT INDIC. TITER HIV AB/AG COMBO RFLX [id number] 00:00:00 Test Item Value Reference Range Interpretation Comments HIV 1/2 4TH GEN, RFLX CONF (test NON-REACTIVE code = 3514) GC AND CHLAMYDIA, AMPLIFIED, [id number] 00:00:00 Test Item Value Reference Range Interpretation Comments GONORRHEA, NAAT (test code = 31101) NEGATIVE CHLAMYDIA, NAAT (test code = 99405) NEGATIVE [id number] 00:00:00 Test Item Value Reference Range Interpretation Comments TSH, THIRD GENERATION (test code 1.920 UIU/ML = 2821) [id number] 00:00:00 Test Item Value Reference Range Interpretation Comments TSH, THIRD GENERATION (test code 1.920 UIU/ML = 2821) SARS-CoV-2 (COVID-19) by RT-PCR (HIGH RISK)2020-10-21 00:00:00 Test Item Value Reference Range Interpretation Comments SARS-CoV-2 INTERPRETATION (test NEGATIVE code = 83210) SOURCE (test code = 56726) NOT SPECIFIED SARS-CoV-2 (COVID-19) by RT-PCR (HIGH RISK)2020-10-21 00:00:00 Test Item Value Reference Range Interpretation Comments SARS-CoV-2 INTERPRETATION (test NEGATIVE code = 00187) SOURCE (test code = 13775) NOT SPECIFIED SARS-CoV-2 (COVID-19) by RT-PCR (HIGH RISK)2020-10-21 00:00:00 Test Item Value Reference Range Interpretation Comments SARS-CoV-2 INTERPRETATION (test NEGATIVE code = 13617) SOURCE (test code = 23027) NOT SPECIFIED SARS-CoV-2 (COVID-19) by RT-PCR (HIGH RISK)2020-10-21 00:00:00 Test Item Value Reference Range Interpretation Comments SARS-CoV-2 INTERPRETATION (test NEGATIVE code = 54039) SOURCE (test code = 17724) NOT SPECIFIED SARS-CoV-2 (COVID-19) by RT-PCR (HIGH RISK)2020-10-21 00:00:00 Test Item Value Reference Range Interpretation Comments SARS-CoV-2 INTERPRETATION (test NEGATIVE code = 16567) SOURCE (test code = 66737) NOT SPECIFIED SARS-CoV-2 (COVID-19) by RT-PCR (HIGH RISK)2020-10-21 00:00:00 Test Item Value Reference Range Interpretation Comments SARS-CoV-2 INTERPRETATION (test NEGATIVE code = 32700) SOURCE (test code = 94436) NOT SPECIFIED SARS-CoV-2 (COVID-19) by RT-PCR (HIGH RISK)2020-10-21 00:00:00 Test Item Value Reference Range Interpretation Comments SARS-CoV-2 INTERPRETATION (test NEGATIVE code = 17380) SOURCE (test code = 43390) NOT SPECIFIED SARS-CoV-2 (COVID-19) by RT-PCR (HIGH RISK)2020-10-21 00:00:00 Test Item Value Reference Range Interpretation Comments SARS-CoV-2 INTERPRETATION (test NEGATIVE code = 59260) SOURCE (test code = 76542) NOT SPECIFIED SARS-CoV-2 (COVID-19) by RT-PCR (HIGH RISK)2020-10-21 00:00:00 Test Item Value Reference Range Interpretation Comments SARS-CoV-2 INTERPRETATION (test NEGATIVE code = 67960) SOURCE (test code = 63924) NOT SPECIFIED CBC W/AUTO [id number] 00:00:00 Test Item Value Reference Range Interpretation Comments WBC (test code = 1001) 9.9 K/UL RBC (test code = 1002) 4.61 M/UL HEMOGLOBIN (test code = 1003) 13.8 G/DL HEMATOCRIT (test code = 1004) 42.1 % MCV (test code = 1005) 91.3 fL MCH (test code = 1006) 29.9 PG MCHC (test code = 1007) 32.8 G/DL RDW (test code = 1038) 12.8 % NEUTROPHILS (test code = 1008) 71.7 % LYMPHOCYTES (test code = 1010) 19.1 % MONOCYTES (test code = 1011) 6.6 % EOSINOPHILS (test code = 1012) 1.9 % BASOPHILS (test code = 1013) 0.7 % PLATELET COUNT (test code = 1015) 283 K/UL CBC W/AUTO [id number] 00:00:00 Test Item Value Reference Range Interpretation Comments WBC (test code = 1001) 9.9 K/UL RBC (test code = 1002) 4.61 M/UL HEMOGLOBIN (test code = 1003) 13.8 G/DL HEMATOCRIT (test code = 1004) 42.1 % MCV (test code = 1005) 91.3 fL MCH (test code = 1006) 29.9 PG MCHC (test code = 1007) 32.8 G/DL RDW (test code = 1038) 12.8 % NEUTROPHILS (test code = 1008) 71.7 % LYMPHOCYTES (test code = 1010) 19.1 % MONOCYTES (test code = 1011) 6.6 % EOSINOPHILS (test code = 1012) 1.9 % BASOPHILS (test code = 1013) 0.7 % PLATELET COUNT (test code = 1015) 283 K/UL LIPID [id number] 00:00:00 Test Item Value Reference Range Interpretation Comments CHOLESTEROL (test code = 2210) 142 MG/DL TRIGLYCERIDES (test code = 2232) 54 MG/DL HDL CHOLESTEROL (test code = 2220) 45 MG/DL CALC LDL CHOL (test code = 2237) 84 MG/DL RISK RATIO LDL/HDL (test code = 1.87 RATIO 2238) COMPREHENSIVE METABOLIC [id number] 00:00:00 Test Item Value Reference Range Interpretation Comments GLUCOSE (test code = 2217) 88 MG/DL BUN (test code = 2208) 10 MG/DL CREATININE (test code = 2214) 0.86 MG/DL eGFR AMER. (test code 99 ML/MIN/1.73 = 17702) eGFR NON- AMER. (test 86 ML/MIN/1.73 code = 72423) CALC BUN/CREAT (test code = 12 RATIO 2235) SODIUM (test code = 2231) 140 MEQ/L POTASSIUM (test code = 2228) 4.4 MEQ/L CHLORIDE (test code = 2215) 104 MEQ/L CARBON DIOXIDE (test code = 24 MEQ/L 2205) CALCIUM (test code = 2209) 9.5 MG/DL PROTEIN, TOTAL (test code = 7.5 G/DL 2228) ALBUMIN (test code = 2201) 4.6 G/DL CALC GLOBULIN (test code = 2.9 G/DL 0) CALC A/G RATIO (test code = 1.6 RATIO 4) BILIRUBIN, TOTAL (test code = 0.3 MG/DL 2206) ALKALINE PHOSPHATASE (test 107 U/L code = 2204) AST (test code = 2218) 15 U/L ALT (test code = 2219) 17 U/L [id number] 00:00:00 Test Item Value Reference Range Interpretation Comments TSH, THIRD GENERATION (test code 1.720 UIU/ML = 2821) [id number] 00:00:00 Test Item Value Reference Range Interpretation Comments TSH, THIRD GENERATION (test code 1.720 UIU/ML = 2821) CBC W/AUTO [id number] 00:00:00 Test Item Value Reference Range Interpretation Comments WBC (test code = 1001) 9.9 K/UL RBC (test code = 1002) 4.61 M/UL HEMOGLOBIN (test code = 1003) 13.8 G/DL HEMATOCRIT (test code = 1004) 42.1 % MCV (test code = 1005) 91.3 fL MCH (test code = 1006) 29.9 PG MCHC (test code = 1007) 32.8 G/DL RDW (test code = 1038) 12.8 % NEUTROPHILS (test code = 1008) 71.7 % LYMPHOCYTES (test code = 1010) 19.1 % MONOCYTES (test code = 1011) 6.6 % EOSINOPHILS (test code = 1012) 1.9 % BASOPHILS (test code = 1013) 0.7 % PLATELET COUNT (test code = 1015) 283 K/UL CBC W/AUTO [id number] 00:00:00 Test Item Value Reference Range Interpretation Comments WBC (test code = 1001) 9.9 K/UL RBC (test code = 1002) 4.61 M/UL HEMOGLOBIN (test code = 1003) 13.8 G/DL HEMATOCRIT (test code = 1004) 42.1 % MCV (test code = 1005) 91.3 fL MCH (test code = 1006) 29.9 PG MCHC (test code = 1007) 32.8 G/DL RDW (test code = 1038) 12.8 % NEUTROPHILS (test code = 1008) 71.7 % LYMPHOCYTES (test code = 1010) 19.1 % MONOCYTES (test code = 1011) 6.6 % EOSINOPHILS (test code = 1012) 1.9 % BASOPHILS (test code = 1013) 0.7 % PLATELET COUNT (test code = 1015) 283 K/UL CBC W/AUTO [id number] 00:00:00 Test Item Value Reference Range Interpretation Comments WBC (test code = 1001) 9.9 K/UL RBC (test code = 1002) 4.61 M/UL HEMOGLOBIN (test code = 1003) 13.8 G/DL HEMATOCRIT (test code = 1004) 42.1 % MCV (test code = 1005) 91.3 fL MCH (test code = 1006) 29.9 PG MCHC (test code = 1007) 32.8 G/DL RDW (test code = 1038) 12.8 % NEUTROPHILS (test code = 1008) 71.7 % LYMPHOCYTES (test code = 1010) 19.1 % MONOCYTES (test code = 1011) 6.6 % EOSINOPHILS (test code = 1012) 1.9 % BASOPHILS (test code = 1013) 0.7 % PLATELET COUNT (test code = 1015) 283 K/UL LIPID [id number] 00:00:00 Test Item Value Reference Range Interpretation Comments CHOLESTEROL (test code = 2210) 142 MG/DL TRIGLYCERIDES (test code = 2232) 54 MG/DL HDL CHOLESTEROL (test code = 2220) 45 MG/DL CALC LDL CHOL (test code = 2237) 84 MG/DL RISK RATIO LDL/HDL (test code = 1.87 RATIO 2238) LIPID [id number] 00:00:00 Test Item Value Reference Range Interpretation Comments CHOLESTEROL (test code = 2210) 142 MG/DL TRIGLYCERIDES (test code = 2232) 54 MG/DL HDL CHOLESTEROL (test code = 2220) 45 MG/DL CALC LDL CHOL (test code = 2237) 84 MG/DL RISK RATIO LDL/HDL (test code = 1.87 RATIO 2238) COMPREHENSIVE METABOLIC [id number] 00:00:00 Test Item Value Reference Range Interpretation Comments GLUCOSE (test code = 2217) 88 MG/DL BUN (test code = 2208) 10 MG/DL CREATININE (test code = 2214) 0.86 MG/DL eGFR AMER. (test code 99 ML/MIN/1.73 = 67689) eGFR NON- AMER. (test 86 ML/MIN/1.73 code = 73921) CALC BUN/CREAT (test code = 12 RATIO 2235) SODIUM (test code = 2231) 140 MEQ/L POTASSIUM (test code = 2228) 4.4 MEQ/L CHLORIDE (test code = 2215) 104 MEQ/L CARBON DIOXIDE (test code = 24 MEQ/L 2205) CALCIUM (test code = 2209) 9.5 MG/DL PROTEIN, TOTAL (test code = 7.5 G/DL 2228) ALBUMIN (test code = 2201) 4.6 G/DL CALC GLOBULIN (test code = 2.9 G/DL 2240) CALC A/G RATIO (test code = 1.6 RATIO 2234) BILIRUBIN, TOTAL (test code = 0.3 MG/DL 2206) ALKALINE PHOSPHATASE (test 107 U/L code = 2204) AST (test code = 2218) 15 U/L ALT (test code = 2219) 17 U/L COMPREHENSIVE METABOLIC [id number] 00:00:00 Test Item Value Reference Range Interpretation Comments GLUCOSE (test code = 2217) 88 MG/DL BUN (test code = 2208) 10 MG/DL CREATININE (test code = 2214) 0.86 MG/DL eGFR AMER. (test code 99 ML/MIN/1.73 = 04838) eGFR NON- AMER. (test 86 ML/MIN/1.73 code = 38989) CALC BUN/CREAT (test code = 12 RATIO 2235) SODIUM (test code = 2231) 140 MEQ/L POTASSIUM (test code = 2228) 4.4 MEQ/L CHLORIDE (test code = 2215) 104 MEQ/L CARBON DIOXIDE (test code = 24 MEQ/L 2205) CALCIUM (test code = 2209) 9.5 MG/DL PROTEIN, TOTAL (test code = 7.5 G/DL 2228) ALBUMIN (test code = 2201) 4.6 G/DL CALC GLOBULIN (test code = 2.9 G/DL 2239) CALC A/G RATIO (test code = 1.6 RATIO 2233) BILIRUBIN, TOTAL (test code = 0.3 MG/DL 2206) ALKALINE PHOSPHATASE (test 107 U/L code = 2204) AST (test code = 2218) 15 U/L ALT (test code = 2219) 17 U/L [id number] 00:00:00 Test Item Value Reference Range Interpretation Comments TSH, THIRD GENERATION (test code 1.720 UIU/ML = 2821) [id number] 00:00:00 Test Item Value Reference Range Interpretation Comments TSH, THIRD GENERATION (test code 1.720 UIU/ML = 2821) [id number] 00:00:00 Test Item Value Reference Range Interpretation Comments TSH, THIRD GENERATION (test code 1.720 UIU/ML = 2821) CBC W/AUTO [id number] 00:00:00 Test Item Value Reference Range Interpretation Comments WBC (test code = 1001) 9.9 K/UL RBC (test code = 1002) 4.61 M/UL HEMOGLOBIN (test code = 1003) 13.8 G/DL HEMATOCRIT (test code = 1004) 42.1 % MCV (test code = 1005) 91.3 fL MCH (test code = 1006) 29.9 PG MCHC (test code = 1007) 32.8 G/DL RDW (test code = 1038) 12.8 % NEUTROPHILS (test code = 1008) 71.7 % LYMPHOCYTES (test code = 1010) 19.1 % MONOCYTES (test code = 1011) 6.6 % EOSINOPHILS (test code = 1012) 1.9 % BASOPHILS (test code = 1013) 0.7 % PLATELET COUNT (test code = 1015) 283 K/UL CBC W/AUTO [id number] 00:00:00 Test Item Value Reference Range Interpretation Comments WBC (test code = 1001) 9.9 K/UL RBC (test code = 1002) 4.61 M/UL HEMOGLOBIN (test code = 1003) 13.8 G/DL HEMATOCRIT (test code = 1004) 42.1 % MCV (test code = 1005) 91.3 fL MCH (test code = 1006) 29.9 PG MCHC (test code = 1007) 32.8 G/DL RDW (test code = 1038) 12.8 % NEUTROPHILS (test code = 1008) 71.7 % LYMPHOCYTES (test code = 1010) 19.1 % MONOCYTES (test code = 1011) 6.6 % EOSINOPHILS (test code = 1012) 1.9 % BASOPHILS (test code = 1013) 0.7 % PLATELET COUNT (test code = 1015) 283 K/UL CBC W/AUTO [id number] 00:00:00 Test Item Value Reference Range Interpretation Comments WBC (test code = 1001) 9.9 K/UL RBC (test code = 1002) 4.61 M/UL HEMOGLOBIN (test code = 1003) 13.8 G/DL HEMATOCRIT (test code = 1004) 42.1 % MCV (test code = 1005) 91.3 fL MCH (test code = 1006) 29.9 PG MCHC (test code = 1007) 32.8 G/DL RDW (test code = 1038) 12.8 % NEUTROPHILS (test code = 1008) 71.7 % LYMPHOCYTES (test code = 1010) 19.1 % MONOCYTES (test code = 1011) 6.6 % EOSINOPHILS (test code = 1012) 1.9 % BASOPHILS (test code = 1013) 0.7 % PLATELET COUNT (test code = 1015) 283 K/UL LIPID [id number] 00:00:00 Test Item Value Reference Range Interpretation Comments CHOLESTEROL (test code = 2210) 142 MG/DL TRIGLYCERIDES (test code = 2232) 54 MG/DL HDL CHOLESTEROL (test code = 2220) 45 MG/DL CALC LDL CHOL (test code = 2237) 84 MG/DL RISK RATIO LDL/HDL (test code = 1.87 RATIO 2238) LIPID [id number] 00:00:00 Test Item Value Reference Range Interpretation Comments CHOLESTEROL (test code = 2210) 142 MG/DL TRIGLYCERIDES (test code = 2232) 54 MG/DL HDL CHOLESTEROL (test code = 2220) 45 MG/DL CALC LDL CHOL (test code = 2237) 84 MG/DL RISK RATIO LDL/HDL (test code = 1.87 RATIO 2238) COMPREHENSIVE METABOLIC [id number] 00:00:00 Test Item Value Reference Range Interpretation Comments GLUCOSE (test code = 2217) 88 MG/DL BUN (test code = 2208) 10 MG/DL CREATININE (test code = 2214) 0.86 MG/DL eGFR AMER. (test code 99 ML/MIN/1.73 = 78351) eGFR NON- AMER. (test 86 ML/MIN/1.73 code = 54604) CALC BUN/CREAT (test code = 12 RATIO 2235) SODIUM (test code = 2231) 140 MEQ/L POTASSIUM (test code = 2228) 4.4 MEQ/L CHLORIDE (test code = 2215) 104 MEQ/L CARBON DIOXIDE (test code = 24 MEQ/L 2205) CALCIUM (test code = 2209) 9.5 MG/DL PROTEIN, TOTAL (test code = 7.5 G/DL 2228) ALBUMIN (test code = 2201) 4.6 G/DL CALC GLOBULIN (test code = 2.9 G/DL 2240) CALC A/G RATIO (test code = 1.6 RATIO 2234) BILIRUBIN, TOTAL (test code = 0.3 MG/DL 2206) ALKALINE PHOSPHATASE (test 107 U/L code = 2204) AST (test code = 2218) 15 U/L ALT (test code = 2219) 17 U/L COMPREHENSIVE METABOLIC [id number] 00:00:00 Test Item Value Reference Range Interpretation Comments GLUCOSE (test code = 2217) 88 MG/DL BUN (test code = 2208) 10 MG/DL CREATININE (test code = 2214) 0.86 MG/DL eGFR AMER. (test code 99 ML/MIN/1.73 = 81197) eGFR NON- AMER. (test 86 ML/MIN/1.73 code = 54060) CALC BUN/CREAT (test code = 12 RATIO 2235) SODIUM (test code = 2231) 140 MEQ/L POTASSIUM (test code = 2228) 4.4 MEQ/L CHLORIDE (test code = 2215) 104 MEQ/L CARBON DIOXIDE (test code = 24 MEQ/L 2205) CALCIUM (test code = 2209) 9.5 MG/DL PROTEIN, TOTAL (test code = 7.5 G/DL 2228) ALBUMIN (test code = 2201) 4.6 G/DL CALC GLOBULIN (test code = 2.9 G/DL 2239) CALC A/G RATIO (test code = 1.6 RATIO 2233) BILIRUBIN, TOTAL (test code = 0.3 MG/DL 2206) ALKALINE PHOSPHATASE (test 107 U/L code = 2204) AST (test code = 2218) 15 U/L ALT (test code = 2219) 17 U/L [id number] 00:00:00 Test Item Value Reference Range Interpretation Comments TSH, THIRD GENERATION (test code 1.720 UIU/ML = 2821) [id number] 00:00:00 Test Item Value Reference Range Interpretation Comments TSH, THIRD GENERATION (test code 1.720 UIU/ML = 2821) [id number] 00:00:00 Test Item Value Reference Range Interpretation Comments TSH, THIRD GENERATION (test code 1.720 UIU/ML = 2821) CBC W/AUTO [id number] 00:00:00 Test Item Value Reference Range Interpretation Comments WBC (test code = 1001) 9.9 K/UL RBC (test code = 1002) 4.61 M/UL HEMOGLOBIN (test code = 1003) 13.8 G/DL HEMATOCRIT (test code = 1004) 42.1 % MCV (test code = 1005) 91.3 fL MCH (test code = 1006) 29.9 PG MCHC (test code = 1007) 32.8 G/DL RDW (test code = 1038) 12.8 % NEUTROPHILS (test code = 1008) 71.7 % LYMPHOCYTES (test code = 1010) 19.1 % MONOCYTES (test code = 1011) 6.6 % EOSINOPHILS (test code = 1012) 1.9 % BASOPHILS (test code = 1013) 0.7 % PLATELET COUNT (test code = 1015) 283 K/UL CBC W/AUTO [id number] 00:00:00 Test Item Value Reference Range Interpretation Comments WBC (test code = 1001) 9.9 K/UL RBC (test code = 1002) 4.61 M/UL HEMOGLOBIN (test code = 1003) 13.8 G/DL HEMATOCRIT (test code = 1004) 42.1 % MCV (test code = 1005) 91.3 fL MCH (test code = 1006) 29.9 PG MCHC (test code = 1007) 32.8 G/DL RDW (test code = 1038) 12.8 % NEUTROPHILS (test code = 1008) 71.7 % LYMPHOCYTES (test code = 1010) 19.1 % MONOCYTES (test code = 1011) 6.6 % EOSINOPHILS (test code = 1012) 1.9 % BASOPHILS (test code = 1013) 0.7 % PLATELET COUNT (test code = 1015) 283 K/UL CBC W/AUTO [id number] 00:00:00 Test Item Value Reference Range Interpretation Comments WBC (test code = 1001) 9.9 K/UL RBC (test code = 1002) 4.61 M/UL HEMOGLOBIN (test code = 1003) 13.8 G/DL HEMATOCRIT (test code = 1004) 42.1 % MCV (test code = 1005) 91.3 fL MCH (test code = 1006) 29.9 PG MCHC (test code = 1007) 32.8 G/DL RDW (test code = 1038) 12.8 % NEUTROPHILS (test code = 1008) 71.7 % LYMPHOCYTES (test code = 1010) 19.1 % MONOCYTES (test code = 1011) 6.6 % EOSINOPHILS (test code = 1012) 1.9 % BASOPHILS (test code = 1013) 0.7 % PLATELET COUNT (test code = 1015) 283 K/UL LIPID [id number] 00:00:00 Test Item Value Reference Range Interpretation Comments CHOLESTEROL (test code = 2210) 142 MG/DL TRIGLYCERIDES (test code = 2232) 54 MG/DL HDL CHOLESTEROL (test code = 2220) 45 MG/DL CALC LDL CHOL (test code = 2237) 84 MG/DL RISK RATIO LDL/HDL (test code = 1.87 RATIO 2238) LIPID [id number] 00:00:00 Test Item Value Reference Range Interpretation Comments CHOLESTEROL (test code = 2210) 142 MG/DL TRIGLYCERIDES (test code = 2232) 54 MG/DL HDL CHOLESTEROL (test code = 2220) 45 MG/DL CALC LDL CHOL (test code = 2237) 84 MG/DL RISK RATIO LDL/HDL (test code = 1.87 RATIO 2238) COMPREHENSIVE METABOLIC [id number] 00:00:00 Test Item Value Reference Range Interpretation Comments GLUCOSE (test code = 2217) 88 MG/DL BUN (test code = 2208) 10 MG/DL CREATININE (test code = 2214) 0.86 MG/DL eGFR AMER. (test code 99 ML/MIN/1.73 = 02523) eGFR NON- AMER. (test 86 ML/MIN/1.73 code = 12286) CALC BUN/CREAT (test code = 12 RATIO 2235) SODIUM (test code = 2231) 140 MEQ/L POTASSIUM (test code = 2228) 4.4 MEQ/L CHLORIDE (test code = 2215) 104 MEQ/L CARBON DIOXIDE (test code = 24 MEQ/L 2205) CALCIUM (test code = 2209) 9.5 MG/DL PROTEIN, TOTAL (test code = 7.5 G/DL 2228) ALBUMIN (test code = 2201) 4.6 G/DL CALC GLOBULIN (test code = 2.9 G/DL 2240) CALC A/G RATIO (test code = 1.6 RATIO 2234) BILIRUBIN, TOTAL (test code = 0.3 MG/DL 2206) ALKALINE PHOSPHATASE (test 107 U/L code = 2204) AST (test code = 2218) 15 U/L ALT (test code = 2219) 17 U/L COMPREHENSIVE METABOLIC [id number] 00:00:00 Test Item Value Reference Range Interpretation Comments GLUCOSE (test code = 2217) 88 MG/DL BUN (test code = 2208) 10 MG/DL CREATININE (test code = 2214) 0.86 MG/DL eGFR AMER. (test code 99 ML/MIN/1.73 = 73570) eGFR NON- AMER. (test 86 ML/MIN/1.73 code = 94032) CALC BUN/CREAT (test code = 12 RATIO 2235) SODIUM (test code = 2231) 140 MEQ/L POTASSIUM (test code = 2228) 4.4 MEQ/L CHLORIDE (test code = 2215) 104 MEQ/L CARBON DIOXIDE (test code = 24 MEQ/L 2205) CALCIUM (test code = 2209) 9.5 MG/DL PROTEIN, TOTAL (test code = 7.5 G/DL 2228) ALBUMIN (test code = 2201) 4.6 G/DL CALC GLOBULIN (test code = 2.9 G/DL 2239) CALC A/G RATIO (test code = 1.6 RATIO 2233) BILIRUBIN, TOTAL (test code = 0.3 MG/DL 2206) ALKALINE PHOSPHATASE (test 107 U/L code = 2204) AST (test code = 2218) 15 U/L ALT (test code = 2219) 17 U/L [id number] 00:00:00 Test Item Value Reference Range Interpretation Comments TSH, THIRD GENERATION (test code 1.720 UIU/ML = 2821) [id number] 00:00:00 Test Item Value Reference Range Interpretation Comments TSH, THIRD GENERATION (test code 1.720 UIU/ML = 2821) [id number] 00:00:00 Test Item Value Reference Range Interpretation Comments TSH, THIRD GENERATION (test code 1.720 UIU/ML = 2821) CBC W/AUTO [id number] 00:00:00 Test Item Value Reference Range Interpretation Comments WBC (test code = 1001) 9.9 K/UL RBC (test code = 1002) 4.61 M/UL HEMOGLOBIN (test code = 1003) 13.8 G/DL HEMATOCRIT (test code = 1004) 42.1 % MCV (test code = 1005) 91.3 fL MCH (test code = 1006) 29.9 PG MCHC (test code = 1007) 32.8 G/DL RDW (test code = 1038) 12.8 % NEUTROPHILS (test code = 1008) 71.7 % LYMPHOCYTES (test code = 1010) 19.1 % MONOCYTES (test code = 1011) 6.6 % EOSINOPHILS (test code = 1012) 1.9 % BASOPHILS (test code = 1013) 0.7 % PLATELET COUNT (test code = 1015) 283 K/UL CBC W/AUTO [id number] 00:00:00 Test Item Value Reference Range Interpretation Comments WBC (test code = 1001) 9.9 K/UL RBC (test code = 1002) 4.61 M/UL HEMOGLOBIN (test code = 1003) 13.8 G/DL HEMATOCRIT (test code = 1004) 42.1 % MCV (test code = 1005) 91.3 fL MCH (test code = 1006) 29.9 PG MCHC (test code = 1007) 32.8 G/DL RDW (test code = 1038) 12.8 % NEUTROPHILS (test code = 1008) 71.7 % LYMPHOCYTES (test code = 1010) 19.1 % MONOCYTES (test code = 1011) 6.6 % EOSINOPHILS (test code = 1012) 1.9 % BASOPHILS (test code = 1013) 0.7 % PLATELET COUNT (test code = 1015) 283 K/UL LIPID [id number] 00:00:00 Test Item Value Reference Range Interpretation Comments CHOLESTEROL (test code = 2210) 142 MG/DL TRIGLYCERIDES (test code = 2232) 54 MG/DL HDL CHOLESTEROL (test code = 2220) 45 MG/DL CALC LDL CHOL (test code =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 39 yr old here for left ear pain eval. R eports pain started after being at the beach. Denies fever, chills, drainage. Review of Systems ROS Statements All systems rev neg except as marked. Focused Review of Systems Constitutional Denies: Chills, Fatigue, Fever, Lethargy, Malais e, Recent wt loss, Weakness - generalized. Ears/Nose/Throat Reports: Earache L. Denies: Ear drainage R, Ear drainage L, Ear drainage bilat, Ear ringing R, Ear ringing L, Ear ringing bilat, Earache R, Earache bilat, Hearing loss R, Hearing loss L, Hearing loss bilat, Mouth pain, Nasal congestion , Nose bleeding, Sinus problem, Sore throat, Thr oat pain, Throat swelling, Tongue pain, Tongue swelling, Toothache, Voice c hange. Past Medical History - Adult Stated Complaint ear pain Allergies Coded Allergies: No Known Allergies (12/26/17) Home Medications Reported Medications No Known Home Medications Review of Nursing Notes Rev avail, and agree Pt reports no significant: P ast surgical history, Family history, Social history Additional Medical History Migraines Additional Family History Brain tumors Smoking status for patients 13 years old or olde r: Never Smoker Physical Exam Vital Signs Vital Signs First Documented: Result Date Time Pulse Ox 100 07/01 1718 B/P 118/74 07/01 1718 B/P Mean 88 07/01 1718 Temp 36.7 07/01 1718 Pulse 72 07/01 171 Resp 18 07/01 1718 Last Documented: Result Date Time Pulse Ox 100 07/01 1718 B/P 118/74 07/01 1718 B/P Mean 88 07/01 1718 Temp 36.7 07/01 1718 Pulse 72 07/01 1718 Resp 07/01 Review of Vital Signs Reviewed Basic Physical Exam Basic PE NECK: Supple, RESP: No resp distress, N EURO: alert oriented, NEURO: gross movement NL Focused PE General/Const General/Const Awake, Alert, No acute di stress, Well appearing, Well developed , Well hydrated, Well nourished, Cooperative, No t toxic appearing Ears/Nose/Throat Ears/Nose/Throat Atraumatic, Airway patent, Muc ous membranes moist, Pharynx NL, No peritonsillar abscess, No pooling of secr etions, No trismus, Tympanic membs NL, Mastoid area NL, N ose exam NL, No sinus tenderness, No facial swelling , Gums/dentition NL Left Ear/Mastoid External canal red, External cigar wrapper tender automatic. Skin Skin Atraumatic, Color NL, No rash, War m, Dry, Intact, Turgor NL, No swelling Re-Evaluation MDM Re-Evaluation/Progress Tissue Perfusion Reassessment Patient tissue perfusion reassessment completed. ED Course Patient Course Stable Safety Concerns Patient is safe Patient Discharge Departure Vital Signs/Condition Vital Signs First Documented: Result Date Time Pulse Ox 100 07/01 1718 B/P 118/74 07/01 1718 B/P Mean 88 07/018 Temp 36.7 07/018 Pulse 72 07/018 Resp 07/01 Last Documented: Result Date Time Pulse Ox 100 07/01 1718 B/P 118/74 07/01 1718 B/P Mean 88 07/018 Temp 36.7 07/018 Pulse 72 07/018 Resp 07/01 All vital signs available at the time of this en try have been reviewed. Condition Stable Clinical Impression Clinical Impression Primary Impression: Otitis externa Disposition Decision Discharge )( Discharged to Home Yes )( Time 1729 )( Date 07/01/19 Discharge/Care Plan Counseled Regarding Diagnosi s, Prescriptions, Need for follow-up, When to return to ED Prescriptions Reviewed Risks, Benefits, Alternat rosa treatment Discharge Note I have spoken with the patie nt and/or caregivers. I have explained the patient's condition, diagnoses and milo atment plan based on the information available to me at this time. I have answered the patient's and/ or caregiver's questions and addressed any concerns. The patient and/or careg margie have as good an understanding of the patient 's diagnosis, condition and treatment plan as can be expected at this point. The vital signs have bee n stable. The patient's condition is stable and appr opriate for discharge from the emergency department. The patient will pursue further outpatient evalu ation with the primary care physician or other designated or consulting phys ician as outlined in the discharge instructions. The patient and/or caregivers are agreeable to this plan of care and follow-up instructions have been exp lained in detail. The patient and/or caregivers have received these instructio ns in written format and have expressed an understanding of the discharge inst ructions. The patient and/or caregivers are aware that any significant change in condition or worsening of symptoms should prompt an immediate return to [facility] or the closest emergency department or a call to 911. Quality Measures Smoking Cessation Screened, non user Moy Najera V 07/01/19 1743: HPI-Ear Pain/Problem/FB General Initial Greet Date/Time 07/01/19 1718 Patient Discharge Departure Supervising Physician Note MidLv Saw Pt Alone I have reviewed the PA/METAL DRILL OPERATOR's note and plan of car e. I was available for consultation as needed at al l times during the patient's visit in the emergency department. I agree with the clinical impression , plan and disposition. Electronically Signed by Moy Najera MD on 0 07/01/19 at 1743 RPT #:[id number] END OF REPORT 2019-07-01 17:21:00-00:00 [facility] ([facility]) EMERGENCY PROVIDER REPORT REPORT#:[id number] REPORT STATUS: Signed DATE:07/01/19 TIME: 172 PATIENT: JASON LIANG UNIT #: [id number] ROOM/BED: AGE: 39 SEX: F PCP PHYS: No Primary or Family P hysician SERVICE AUTHOR: Sarita Saeed METAL DRILL OPERATOR * ALL edits or amendments must be made on the el [employer]/computer document * Sarita Saeed 07/01/19 1721: HPI-Ear Pain/Problem/FB General Confirmed Patient Yes Initial Greet Date/Time 07/01/191717 Presentation Chief Complaint Pain Hx Obtained From Patient Onset Occurred Sudden, Days ago (2) Symptom Duration Since onset Context /Sexual Hx Status Denies Free Text HPI Notes Free Text HPI Notes 39 yr old here for left ear pain eval. R eports pain started after being at the beach. Denies fever, chills, drainage. Review of Systems ROS Statements All systems rev neg except as marked. Focused Review of Systems Constitutional Denies: Chills, Fatigue, Fever, Lethargy, Malais e, Recent wt loss, Weakness - generalized. Ears/Nose/Throat Reports: Earache L. Denies: Ear drainage R, Ear drainage L, Ear drainage bilat, Ear ringing R, Ear ringing L, Ear ringing bilat, Earache R, Earache bilat, Hearing loss R, Hearing loss L, Hearing loss bilat, Mouth pain, Nasal congestion , Nose bleeding, Sinus problem, Sore throat, Thr oat pain, Throat swelling, Tongue pain, Tongue swelling, Toothache, Voice c hange. Past Medical History - Adult Stated Complaint ear pain Allergies Coded Allergies: No Known Allergies (12/26/17) Home Medications Reported Medications No Known Home Medications Review of Nursing Notes Rev avail, and agree Pt reports no significant: P ast surgical history, Family history, Social history Additional Medical History Migraines Additional Family History Brain tumors Smoking status for patients 13 years old or olde r: Never Smoker Physical Exam Vital Signs Review of Vital Signs Reviewed Basic Physical Exam Basic PE NECK: Supple, RESP: No resp distress, N EURO: alert oriented, NEURO: gross movement NL Focused PE General/Const General/Const Awake, Alert, No acute di stress, Well appearing, Well developed , Well hydrated, Well nourished, Cooperative, No t toxic appearing Ears/Nose/Throat Ears/Nose/Throat Atraumatic, Airway patent, Muc ous membranes moist, Pharynx NL, No peritonsillar abscess, No pooling of secr etions, No trismus, Tympanic membs NL, Mastoid area NL, N ose exam NL, No sinus tenderness, No facial swelling , Gums/dentition NL Left Ear/Mastoid External canal red, External cigar wrapper tender automatic. Skin Skin Atraumatic, Color NL, No rash, War m, Dry, Intact, Turgor NL, No swelling Re-Evaluation MDM Re-Evaluation/Progress Tissue Perfusion Reassessment Patient tissue perfusion reassessment completed. ED Course Patient Course Stable Safety Concerns Patient is safe Patient Discharge Departure Vital Signs/Condition Condition Stable Clinical Impression Clinical Impression Primary Impression: Otitis externa Disposition Decision Discharge )( Discharged to Home Yes )( Time 1729 )( Date 07/01/19 Discharge/Care Plan Counseled Regarding Diagnosi s, Prescriptions, Need for follow-up, When to return to ED Prescriptions Reviewed Risks, Benefits, Alternat rosa treatment Discharge Note I have spoken with the patie nt and/or caregivers. I have explained the patient's condition, diagnoses and milo atment plan based on the information available to me at this time. I have answered the patient's and/ or caregiver's questions and addressed any concerns. The patient and/or careg margie have as good an understanding of the patient 's diagnosis, condition and treatment plan as can be expected at this point. The vital signs have bee n stable. The patient's condition is stable and appr opriate for discharge from the emergency department. The patient will pursue further outpatient evalu ation with the primary care physician or other designated or consulting phys ician as outlined in the discharge instructions. The patient and/or caregivers are agreeable to this plan of care and follow-up instructions have been exp lained in detail. The patient and/or caregivers have received these instructio ns in written format and have expressed an understanding of the discharge inst ructions. The patient and/or caregivers are aware that any significant change in condition or worsening of symptoms should prompt an immediate return to [facility] or the closest emergency department or a call to 911. Quality Measures Smoking Cessation Screened, non user Moy Najera Som 07/01/19 1743: Physical Exam Vital Signs Vital Signs First Documented: Result Date Time Pulse Ox 100 07/01 1718 B/P 118/74 07/01 171 B/P Mean 88 07/01 1718 Temp 36.7 07/01 1718 Pulse 72 07/01 171 Resp 18 07/01 1718 Last Documented: Result Date Time Pulse Ox 100 07/01 1718 B/P 118/74 07/01 1718 B/P Mean 88 07/01 1718 Temp 36.7 07/01 1718 Pulse 72 07/01 171 Resp 18 07/01 1718 Patient Discharge Departure Vital Signs/Condition Vital Signs First Documented: Result Date Time Pulse Ox 100 07/01 1718 B/P 118/74 07/01 1718 B/P Mean 88 07/01 171 Temp 36.7 07/01 1718 Pulse 72 07/01 1718 Resp 18 07/01 1718 Last Documented: Result Date Time Pulse Ox 100 07/01 1718 B/P 118/74 07/01 1718 B/P Mean 88 07/01 1718 Temp 36.7 07/01 1718 Pulse 72 07/01 1718 Resp 18 07/01 1718 All vital signs available at the time of this en try have been reviewed. Supervising Physician Note MidLv Saw Pt Alone I have reviewed the PA/METAL DRILL OPERATOR's note and plan of car e. I was available for consultation as needed at al l times during the patient's visit in the emergency department. I agree with the clinical impression , plan and disposition. Electronically Signed by Moy Najera MD on 0 07/01/19 at 1743 Electronically Signed by Sarita Saeed METAL DRILL OPERATOR o n 07/01/19 at 1744 RPT #:[id number] END OF REPORT 2019-02-18 08:27:00-00:00 [facility] ([facility]) EMERGENCY PROVIDER REPORT REPORT#:[id number] REPORT STATUS: Signed DATE:02/18/19 TIME: 826 PATIENT: JASON LIANG UNIT #: [id number] ROOM/BED: AGE: 38 SEX: F PCP PHYS: No Primary or Family Ph ysician SERVICE AUTHOR: Alessandra Ferrell MD * ALL edits or amendments must be made on the el [employer]/computer document * HPI-URI/Cough/Cold General Confirmed Patient Yes Initial Greet Date/Time 02/18/19 0811 Presentation Chief Complaint Cough, produ ctive, Facial pain, Fever (subjective), Sore throat Hx Obtained From Patient Onset Occurred Days ago (2) Symptom Duration Since onset Progression since Onset Unchanged Location Chest (when coughing ), throat Quality Painful Radiation Does not radiate Associated with Reports: Body aches. Denies: Diarrhea, Vomiting. Associated Other Pt denies other symptoms Free Text HPI Notes Free Text HPI Notes 38 y/o F with no significant PMHx, presents with CC of 2 days of sorethroat, cough, congestion, sinus chetan n, body aches, SOUZA and subjective fever. Pt notes she has CP upon coughing. She st s she took Mucinex yesterday, which has Tylenol. No meds taken today and no fever noted toda y. Pt sts she has a hx of wheezing and has an inhaler for that purpose. Denies GI sxs. Portions of this section were scribed by Eliazar Garg on 02/18/19 at 0851 Review of Systems ROS Statements All systems rev neg except as marked. Focused Review of Systems Constitutional Reports: Fever (subjective ). Ears/Nose/Throat Reports: Sinus problem (pain), Sore throat. Respiratory Reports: Cough, productive, Wheezing. GI Denies: Diarrhea, Nausea, Vomiting. Neurologic Reports: Headache. Free Text ROS Notes Free Text ROS Notes Body aches. Portions of this section were scribed by Eliazar Garg on 02/18/19 at 0851 Past Medical History - Adult Stated Complaint FEVER FLU SX Allergies Coded Allergies: No Known Allergies (12/26/17) Home Medications Reported Medications No Known Home Medications Review of Nursing Notes Rev avail, and agree Additional Medical History Migraines Additional Family History Brain tumors Smoking status for patients 13 years old or olde r: Never Smoker Portions of this section were scribed by Eliazar Garg on 02/18/19 at 0827 Physical Exam Vital Signs Vital Signs First Documented: Result Date Time Pulse Ox 98 04/ 0807 B/P 121/73 / 0807 B/P Mean 89 / 0807 Temp 36.9 04/16 0807 Pulse 85 04/ 0807 Resp 16 02/18 0807 Last Documented: Result Date Time Pulse Ox 98 04/ 0807 B/P 121/73 / 0807 B/P Mean 89 / 0807 Temp 36.9 04/ 0807 Pulse 85 04/ 0807 Resp 16 02/18 0807 Review of Vital Signs Reviewed Focused PE General/Const General/Const Awake, Alert, No acute distress, Well developed Eyes Eyes Atraumatic, PERRL, EOMI Ears/Nose/Throat Ears/Nose/Throat Atraumatic, Airway patent, Muc ous membranes moist, Tympanic membs NL, Ext aud canal NL Text/Dict Notes Cobblestoning of throat. Mild maxillary sinus tenderness. Pharynx/Tonsils/Uvula Pharyngeal erythema, Tonsillar erythema R, Tons illar erythema L, Tonsillar swelling R, Tonsillar swelling L. MS Neck Neck Atraumatic, Supple, Full range of motion, No adenopathy Resp/Chest Respiratory/Chest No respiratory distress, No r ales, No rhonchi, No stridor Text/Dict Notes Very mild inspiratory and expiratory wheezing in the bases. Cardiovascular Cardiovascular Heart rate NL, Regular r hythm, Heart sounds NL, Cap refill not delayed, Peripheral circulation NL Abdomen/GI Abdomen/GI Atraumatic, Soft, Non-tender, No gua rding, No rebound Skin Skin Atraumatic, Color NL, No rash, Warm, Dry, Intact Neurologic Neurologic Oriented X3, Speech NL, No motor def icits, No sensory deficits Additional PE MS Head Head Atraumatic, Normocephalic MS Lower Extrem Lower Ext/Pelvis/MS No edema Portions of this section were scribed by Eliazar Garg on 02/18/19 at 0851 Interpretation Diagnostics Lab Results Interpretation Results Microbiology: Date/Time Procedure - Status Source Growth 02/18 08 Group A Streptococcus Screen (DAVID) - RES THROAT 02/18 0830 Throat Culture - RES THROAT 02/18 0830 Influenza Virus Type B Antigen - COM P NASAL 02/18 0830 Influenza Virus Type A Antigen - COM P NASAL Point of Care Testing Micro Interpretation Influenza rapid - neg, Stre p rapid - neg Pulse Oximetry Pulse Ox % 98 On: Room air Interpretation Interpreted by tn, Pulse oximetr y normal Time 0807 Portions of this section were scribed by Eliazar Garg on 02/18/19 at 0851 Re-Evaluation MDM Re-Evaluation/Progress URI/Flu Adult MDM Note The patient is now resting c omfortably, is alert and in no distress. The patient has a normal mental status and is neurologically intact. The patient appears well and is able to tolerate food or fluid by mouth, and there is no significant dehydration. There is no res piratory distress and no signs of systemic toxicity. The history, exam, diagnostic testing (if any) a nd current condition do not demonstrate an infectious process such as mening itis, severe pneumonia, retropharyngeal abscess, epiglottitis, sepsis or other serious bacterial infection requiring further testing, treatment, consultation, or admission at this time. The vital signs have been sta ble. The patient's condition is stable and appropriate for discharge. The patient will pursue further outpatient evaluation with the primary care physician or ot her designated or consulting physician as indicated in the discharge instruct ions. ED Course Medication(s) Ordered Medication(s) Ordered: Autonomic Drugs Sig/Jennifer Start time Last Medication Dose Route Stop Time Status Admin Albuterol/Ipratropium 3 ML X1ED STA 02/18 826 DC 02/18 INH 02/18 827 0831 Hormones And Synthetic Substit Sig/Jennifer Start time Last Medication Dose Route Stop Time Status Admin Dexamethasone 10 MG X1ED STA 02/18 827 DC 02/03 6 IM 02/19 828 0831 Portions of this section were scribed by Eliazar Garg on 02/18/19 at 0827 Patient Discharge Departure Vital Signs/Condition Vital Signs First Documented: Result Date Time Pulse Ox 98 04/ 0807 B/P 121/73 04/16 0807 B/P Mean 89 04/16 0807 Temp 36.9 04/16 0807 Pulse 85 04/16 0807 Resp 16 / 0807 Last Documented: Result Date Time Pulse Ox 98 / 0807 B/P 121/73 04/ 0807 B/P Mean 89 /16 0807 Temp 36.9 04/16 0807 Pulse 85 04/16 0807 Resp 16 /16 0807 All vital signs available at the time of this en try have been reviewed. Condition Improved, Stable Clinical Impression Clinical Impression Primary Impression: URI with cough and congestio n Disposition Decision Discharge )( Discharged to Home Yes )( Time 0848 )( Date 02/18/19 Discharge/Care Plan Counseled Regarding Diagnosis, Lab resul ts, Medication changes, Prescriptions, Need for follow-up, When to return to ED Prescriptions proair, tessalon, ibup, flonase, zyrtec, dex giv en Pt/family feel safe for pt to be discharged home at this time. They will f/u with PCP in 1-2 days. Discussed return precautio ns for new or worsening symptoms. All questions answered at the bedside. Prescriptions Reviewed Risks, Benefits, Alternat rosa treatment Discharge Note I have spoken with the patie nt and/or caregivers. I have explained the patient's condition, diagnoses and milo atment plan based on the information available to me at this time. I have answered the patient's and/ or caregiver's questions and addressed any concerns. The patient and/or careg margie have as good an understanding of the patient 's diagnosis, condition and treatment plan as can be expected at this point. The vital signs have bee n stable. The patient's condition is stable and appr opriate for discharge from the emergency department. The patient will pursue further outpatient evalu ation with the primary care physician or other designated or consulting phys ician as outlined in the discharge instructions. The patient and/or caregivers are agreeable to this plan of care and follow-up instructions have been exp lained in detail. The patient and/or caregivers have received these instructio ns in written format and have expressed an understanding of the discharge inst ructions. The patient and/or caregivers are aware that any significant change in condition or worsening of symptoms should prompt an immediate return [facility] or the closest emergency department or a call to 911. Quality Measures BP F/U for HTN F/u with PCP/other doc, BP in nor mal range (bp elevated) Supervising Physician Note Scribe Statement By signing my name below, I, Eliazar Garg, attest that this document has been prepared under the direction and in the presence of Dr. Mary MD. Electronically signed: Taryn Beckett. Date : 02/18/2019. Time: 0827 Provider Scribed Statement I personally performed the s ervices described in this documentation and reviewed the documentation that was dictated to the scrib e(s) in my presence, and it accurately records my words and actions. Alessandra Logan, 02/18/19 Portions of this section were scribed by Eliazar Garg on 02/18/19 at 0831 Electronically Signed by Alessandra Ferrell MD on at 1251 RPT #:[id number] END OF REPORT
[2023-05-17] MEDS ORDERED: NA CHLORIDE 0.9% 1,000 ML ONE (11:08)
[2023-05-17] MEDS ORDERED: KETOROLAC 30 MG/ML INJ ONE (11:08)
[2023-05-17] MEDS ORDERED: DIAZEPAM 5 MG TABLET ONE (11:08)
[2023-05-17 11:10] LABS: Absolute Lymphocytes (CBC) 2.2 K/uL (0.7-4.9); Hematocrit 38.2 % (36.0-45.0); Lymphocytes % 24.5 % (15.3-44.8); MCV 90.9 fL (80-100); MPV 8.5 fL (7.6-11.3)
[2023-05-17] MEDS ORDERED: DIAZEPAM 10 MG/2 ML INJ SYRINGE ONE (11:11)
--- NOTE | 2023-05-17 11:18 | RAD REPORT ---
EXAM DESCRIPTION: CT - Head Brain Wo Cont - 05/17/2023 11:09 am CLINICAL HISTORY: HEADACHE COMPARISON: Head angio dated 05/17/2023; Head C Spine Mpr Wo Con dated 03/09/2021 TECHNIQUE: Noncontrast head CT images were obtained without IV contrast. Multiplanar reformats were generated and reviewed. All CT scans are performed using dose optimization technique as appropriate and may include automated exposure control or mA/KV adjustment according to patient size. FINDINGS: No intracranial hemorrhage, mass, or edema. Midline structures are unremarkable. Normal ventricular caliber for age. Marsh-white matter differentiation is preserved, without evidence of acute infarct. No abnormal extra- axial fluid collections. Mild deep white matter hypodensities, nonspecific, most suggestive of chronic small vessel ischemic c hanges. Pattern is stable. Mastoid air cells and visualized portions of the paranasal sinuses are clear. No acute bony findings. IMPRESSION: No evidence of an acute intracranial process.
--- NOTE | 2023-05-17 11:21 | RAD REPORT ---
[facility] DES[facility] 11[facility]16 am CLINICAL HISTORY: CHEST PAIN COMPARISON: Chest Single View dated 02/01/2023 TECHNIQUE: Portable AP view of the chest. FINDINGS: The lungs are clear. Left basilar atelectasis, grossly stable. No pneumothorax or effusion . The cardiomediastinal contours are unremarkable. IMPRESSION: No acute cardiopulmonary process.
[2023-05-17 11:29] LABS: Albumin 3.4 g/dL (3.4-5.0); Bilirubin Total 0.2 mg/dL (0.2-1.0); Magnesium 2.2 mg/dL (1.6-2.4); Potassium 4.1 mEq/L (3.5-5.1); Protein, Total 6.9 g/dL (6.4-8.2); Troponin High Sensitivity 3.3 pg/mL (<58.9)
--- NOTE | 2023-05-17 11:46 | RAD REPORT ---
EXAM DESCRIPTION: CT - Head angio - 05/17/2023 11:09 am CLINICAL HISTORY: headache, dizziness COMPARISON: Noncontrast head CT of the same day TECHNIQUE: Axial CT angiography images of the head was performed with multiplanar and maximum intens ity projection reconstructions. Images performed following intravenous administration of 100mL Isovue 370. All CT scans are performed using dose optimization technique as appropriate and may include automated exposure control or mA/KV adjustment according to patient size. FINDINGS: No evidence of large vessel occlusion. No evidence of aneurysm or dissection flap is detec margarita. No flow-limiting stenosis or vascular malformation identified. Antegrade flow is seen in the vertebral arteries. The vertebral arteries are codominant. The visualized dural venous sinuses are grossly patent. IMPRESSION: No evidence of large vessel occlusion or flow-limiting stenosis.
--- NOTE | 2023-05-17 11:52 | RAD REPORT ---
EXAM DESCRIPTION: CT - Neck Angio - 05/17/2023 11:09 am CLINICAL HISTORY: neck pain, dizziness COMPARISON: Head C Spine Mpr Wo Con dated 03/09/2021; Thoracic Spine W/o Cont dated 03/09/2021 TECHNIQUE: Axial CT angiography images of the head was performed with multiplanar and maximum intens ity projection reconstructions. Images performed following intravenous administration of 100mL Isovue 370. All CT scans are performed using dose optimization technique as appropriate and may include automated exposure control or mA/KV adjustment according to patient size. Quantification of carotid stenosis, if any, is performed according to NASCET criteria. FINDINGS: A left aortic arch is identified with 4 vessel configuration of the great vessels, with le ft vertebral artery arising directly as the third vessel from the arch. No significant flow abnormality is seen of the common carotid bilaterally. No significant stenosis is identified involving the cervical segments of both internal carotid arteri es. Normal flow is seen within both vertebral arteries. IMPRESSION: No significant flow abnormality of the neck vessels is identified. CAROTID STENOSIS REFERENCE USING NASCET CRITERIA: % ICA stenosis = (1 - narrowest ICA diameter/diameter of distal cervical ICA) x 100. Mild - <50% stenosis. Moderate - 50-69% stenosis. Severe - 70-94% stenosis. Near occlusion - 95-99% stenosis. Occluded - 100% stenosis.
--- NOTE | 2023-05-17 12:21 | EDPHYS ---
Physician Documentation [facility] Name: Evie Vallejo Age: 43 yrs Sex: Female : 1980 Arrival Date: 05/17/2023 Time: 10:25 Bed 8 Private MD: ED Physician Tuan Schaefer HPI: 05/17 11:47 This 43 yrs old Unknown Female presents to ER via Wheelchair with complaints of Near rt Syncope, Chest Pain. 11:47 Patient presents to the ED with multiple symptoms after she popped her neck yesterday. rt Patient states that she was in her left stress at work, felt neck tension, tried to pop her neck, at that time, worsening neck pain as well as a dizziness. The patient states that she later developed a chest pain after having argument with her significant other. The patient reports feeling shaky, short of breath. She denies other acute complaints at this time. Symptoms are moderate in severity, no other aggravating alleviating factors.. Historical: - Allergies: 10:31 No Known Allergies; ph - PMHx: 10:39 None; ll1 - PSHx: 10:39 Cholecystectomy; hip SX; ll1 - Immunization history:: Client reports having NOT received the Covid vaccine. - Social history:: Smoking status: Reported history of juuling and/or vaping. - Family history:: not pertinent. ROS: 11:47 Constitutional: Negative for fever, chills, and weight loss, Cardiovascular: Negative rt for chest pain, palpitations, and edema, Respiratory: Negative for shortness of breath, cough, wheezing, and pleuritic chest pain, Abdomen/GI: Negative for abdominal pain, nausea, vomiting, diarrhea, and constipation, MS/Extremity: Negative for injury and deformity, Skin: Negative for injury, rash, and discoloration, Psych: Negative for depression, anxiety, suicide ideation, homicidal ideation, and hallucinations. 11:47 Cardiovascular: Positive for chest pain, Negative for edema. 11:47 Neuro: Positive for dizziness, tremor. Exam: 11:47 Constitutional: This is a well developed, well nourished patient who is awake, alert, rt and in no acute distress. Head/Face: Normocephalic, atraumatic. Neck: Trachea midline, no thyromegaly or masses palpated, and no cervical lymphadenopathy. Supple, full range of motion without nuchal rigidity, or vertebral point tenderness. No Meningismus. Chest/axilla: Normal chest wall appearance and motion. Nontender with no deformity. No lesions are appreciated. Cardiovascular: Regular rate and rhythm with a normal S1 and S2. No gallops, murmurs, or rubs. Normal PMI, no JVD. No pulse deficits. Respiratory: Lungs have equal breath sounds bilaterally, clear to auscultation and percussion. No rales, rhonchi or wheezes noted. No increased work of breathing, no retractions or nasal flaring. Abdomen/GI: Soft, non-tender, with normal bowel sounds. No distension or tympany. No guarding or rebound. No evidence of tenderness throughout. Skin: Warm, dry with normal turgor. Normal color with no rashes, no lesions, and no evidence of cellulitis. MS/ Extremity: Pulses equal, no cyanosis. Neurovascular intact. Full, normal range of motion. Psych: Awake, alert, with orientation to person, place and time. Behavior, mood, and affect are within normal limits. 11:47 ECG was reviewed by the Attending Physician. 11:47 Neuro: Cranial nerves II through XII is intact, strength and sensation intact in upper and lower extremities, speech normal. Vital Signs: 10:39 BP 164 / 109; Pulse 71; Resp 18; Temp 98.2; Pulse Ox 99% ; Weight 87.09 kg; Height 5 ll1 ft. 5 in. ; Pain 10/10; 11:47 BP 122 / 79; Pulse 63; Resp 18; Pulse Ox 94% on R/A; ph 13:14 BP 124 / 81; Pulse 64; Resp 18; Temp 98; Pulse Ox 99% on R/A; ph 10:39 Body Mass Index 31.95 (87.09 kg, 165.1 cm) ll1 10:39 Pain Scale: Adult ll1 MDM: 10:37 Patient medically screened. rt 20:08 Differential Diagnosis: Vertebral dissection, aneurysm, intracranial hemorrhage, rt dysrhythmia, acute coronary syndrome, GI disturbance, vasovagal syncope. Data reviewed: vital signs, nurses notes. Consideration of Admission/Observation Escalation of care including admission/observation considered. I considered the following discharge prescriptions or medication management in the emergency department Medications were administered in the Emergency Department. See MAR. Independent interpretation of the following test(s) in the Emergency Department CT Scan: My interpretation is No hemorrhage seen on interpretation of CT scan images. Counseling: I had a detailed discussion with the patient and/or guardian regarding: the historical points, exam findings, and any diagnostic results supporting the discharge/admit diagnosis, lab results, radiology results, the need for outpatient follow up, to return to the emergency department if symptoms worsen or persist or if there are any questions or concerns that arise at home. Response to treatment: the patient's symptoms have markedly improved after treatment. 05/17 10:51 Order name: CBC with Diff; Complete Time: 11:46 rt 05/17 10:51 Order name: CMP; Complete Time: :46 rt 05/17 10:51 Order name: Magnesium; Complete Time: : rt 05/17 10:51 Order name: CPK; Complete Time: :46 rt 05/17 10:51 Order name: Troponin High Sensitivity; Complete Time: 11:46 rt 05/17 10:51 Order name: Test, Serum; Complete Time: 11:46 rt 05/17 10:51 Order name: CT Head Brain wo Cont; Complete Time: 11:46 rt 05/17 10:51 Order name: CT Head Angio; Complete Time: 11:57 rt 05/17 10:51 Order name: CT Neck Angio; Complete Time: 11:57 rt 05/17 10:51 Order name: Chest Single View XRAY; Complete Time: 11:46 rt 05/17 10:51 Order name: EKG; Complete Time: 10:52 rt 05/17 10:51 Order name: EKG - Nurse/Tech; Complete Time: 11:47 rt EC:47 Rate is 57 beats/min. Rhythm is regular, Normal Sinus Rhythm with No ectopy. QRS [place] rt is Normal. DE interval is normal. QRS interval is normal. QT interval is normal. No Q waves. T waves are Normal. No ST changes noted. Interpreted by me. Administered Medications: 11:25 Drug: Diazepam IVP 10 mg Route: IVP; Site: left antecubital; ph 13:15 Follow up: Response: No adverse reaction ph 11:25 Drug: NS 0.9% IV 1000 ml Route: IV; Rate: 1 bolus; Site: left antecubital; ph 13:14 Follow up: Response: No adverse reaction; IV Status: Completed infusion; IV Intake: ph 1000ml 11:25 Drug: Ketorolac IVP 15 mg Route: IVP; Site: left antecubital; ph 13:14 Follow up: Response: No adverse reaction; Pain is decreased ph Disposition Summary: 05/17/23 12:20 Discharge Ordered Location: Home rt Problem: new rt Symptoms: have improved rt Condition: Stable rt Diagnosis - Chest pain, unspecified rt - Neck pain rt Followup: rt - With: Private Physician - When: 2 - 3 days - Reason: Discharge Instructions: - Discharge Summary Sheet rt - Nonspecific Chest Pain, Adult rt - Neck Exercises rt Forms: - Work release form ph - Medication Reconciliation Form rt - Thank You Letter rt - Antibiotic Education rt - Prescription Opioid Use rt - Patient Portal Instructions rt Prescriptions: - Cyclobenzaprine 10 mg Oral Tablet - take 1 tablet by ORAL route every 8 hours As needed; 15 tablet; Refills: 0, rt Product Selection Permitted Signatures: Dispatcher [employer] Savannah Espinoza RN RN ph Lewis, Lynsay, RN RN [facility] Tuan Schaefer MD MD rt
--- NOTE | 2023-05-17 12:21 | ER ---
Nurse's Notes [facility] Name: Evie Vallejo Age: 43 yrs Sex: Female : 1980 Arrival Date: 05/17/2023 Time: 10:25 Bed 8 Private MD: Diagnosis: Chest pain, unspecified;Neck pain Presentation: 05/17 10:39 Chief complaint: Patient states: Popped her neck at work yesterday. Suddenly had pain, ll1 saw stars, and felt like she might pass out. In the evening she went to [employer] and felt like she got overheated. When she got home she had a argument with her . Started to have chest pain, R arm pain, neck pain, SOB. Still stressed and shaky this morning at work, so she came to get evaluated. Coronavirus screen: Vaccine status: Patient reports being unvaccinated. Client denies travel out of the [place] in the last 14 days. difficulty breathing, fatigue, nausea, Client presents with at least one sign or symptom that may indicate coronavirus-19. Standard/surgical mask placed on the client. Ebola Screen: Patient denies travel to an Ebola-affected area in the 21 days before illness onset. Initial Sepsis Screen: Does the patient meet any 2 criteria? No. Patient's initial sepsis screen is negative. Does the patient have a suspected source of infection? No. Patient's initial sepsis screen is negative. Risk Assessment: Do you want to hurt yourself or someone else? Patient reports no desire to harm self or others. Onset of symptoms was May 16, 2023. 10:39 Method Of Arrival: Wheelchair ll1 10:39 Acuity: DAVID 3 ll1 Triage Assessment: 10:43 General: Appears distressed, uncomfortable, Behavior is cooperative, appropriate for ll1 age, anxious, crying. Pain: Complains of pain in neck/chest Quality of pain is described as aching. EENT: Reports dry mouth. Neuro: Reports headache a syncopal episode weakness. Cardiovascular: Reports chest pain, fatigue, lightheadedness, nausea, shortness of breath. Respiratory:. GI: Reports nausea. Historical: - Allergies: 10:31 No Known Allergies; ph - PMHx: 10:39 None; ll1 - PSHx: 10:39 Cholecystectomy; hip SX; ll1 - Immunization history:: Client reports having NOT received the Covid vaccine. - Social history:: Smoking status: Reported history of juuling and/or vaping. - Family history:: not pertinent. Screenin:08 [facility] ED Fall Risk Assessment (Adult) History of falling in the last 3 months, ph including since admission No falls in past 3 months (0 pts) Confusion or Disorientation No (0 pts) Intoxicated or Sedated No (0 pts) Impaired Gait No (0 pts) Mobility Assist Device Used No (0 pt) Altered Elimination No (0 pt) Score/Fall Risk Level 0 - 2 = Low Risk Oriented to surroundings, Maintained a safe environment, Hourly rounding (assess needs \T\ fall precautionary measures) done. Abuse screen: Denies threats or abuse. Denies injuries from another. Nutritional screening: No deficits noted. Tuberculosis screening: No symptoms or risk factors identified. Assessment: 11:15 General: Appears in no apparent distress. comfortable, Behavior is cooperative, ph appropriate for age, anxious. Pain: Complains of pain in right side of neck and midsternal area Pain radiates to right arm. Neuro: Level of Consciousness is awake, alert, obeys commands, Oriented to person, place, time, situation. Cardiovascular: Capillary refill < 3 seconds in bilateral fingers Patient's skin is warm and dry. Cardiovascular: Reports chest pain, lightheadedness, nausea, shortness of breath. Respiratory: Airway is patent Respiratory effort is even, unlabored. Derm: Skin is pink, warm \T\ dry. Vital Signs: 10:39 BP 164 / 109; Pulse 71; Resp 18; Temp 98.2; Pulse Ox 99% ; Weight 87.09 kg; Height 5 ll1 ft. 5 in. ; Pain 10/10; 11:47 BP 122 / 79; Pulse 63; Resp 18; Pulse Ox 94% on R/A; ph 13:14 BP 124 / 81; Pulse 64; Resp 18; Temp 98; Pulse Ox 99% on R/A; ph 10:39 Body Mass Index 31.95 (87.09 kg, 165.1 cm) ll1 10:39 Pain Scale: Adult ll1 ED Course: 10:29 Patient arrived in ED. im 10:31 Tuan Schaefer MD is Attending Physician. rt 10:31 Best, Savannah, RN is Primary Nurse. ph 10:32 Arm band placed on Patient placed in an exam room, on a stretcher. ll1 10:43 Triage completed. ll1 11:06 Initial lab(s) drawn, by ED staff, sent to lab. Inserted saline lock: 20 gauge in left ph antecubital area, using aseptic technique. Blood collected. 11:08 CBC with Diff Sent. ph 11:08 Magnesium Sent. ph 11:08 CPK Sent. ph 11:08 Troponin High Sensitivity Sent. ph 11:08 Test, Serum Sent. ph 11:09 Patient has correct armband on for positive identification. Placed in gown. Bed in low ph position. Call light in reach. Client placed on continuous cardiac and pulse oximetry monitoring. NIBP monitoring applied. 11:09 Patient maintains SpO2 saturation greater than 95% on room air. ph 11:11 CT Head Brain wo Cont In Process Unspecified. EDMS 11:11 CT Head Angio In Process Unspecified. EDMS 11:11 CT Neck Angio In Process Unspecified. EDMS 11:18 Chest Single View XRAY In Process Unspecified. EDMS 11:29 EKG done, by ED staff. 8 13:13 Provided Education on: Use and side effects of cyclobenzaprine. ph 13:13 No provider procedures requiring assistance completed. IV discontinued, intact, ph bleeding controlled, No redness/swelling at site. Pressure dressing applied. Administered Medications: 11:25 Drug: Diazepam IVP 10 mg Route: IVP; Site: left antecubital; ph 13:15 Follow up: Response: No adverse reaction ph 11:25 Drug: NS 0.9% IV 1000 ml Route: IV; Rate: 1 bolus; Site: left antecubital; ph 13:14 Follow up: Response: No adverse reaction; IV Status: Completed infusion; IV Intake: ph 1000ml 11:25 Drug: Ketorolac IVP 15 mg Route: IVP; Site: left antecubital; ph 13:14 Follow up: Response: No adverse reaction; Pain is decreased ph Medication: 11:10 VIS not applicable for this client. ph Intake: 13:14 IV: 1000ml; Total: 1000ml. ph Outcome: 12:20 Discharge ordered by MD. rt 13:13 Discharged to home ambulatory, with significant other. ph 13:13 Condition: good 13:13 Discharge instructions given to patient, Instructed on discharge instructions, follow up and referral plans. medication usage, Demonstrated understanding of instructions, follow-up care, medications, Prescriptions given X 1. 13:15 Patient left the ED. ph Signatures: Dispatcher [employer] Savannah Espinoza RN RN ph Lewis, Lynsay, RN RN ll1 Tuan Schaefer MD MD rt Khalida Espitia Scarlett 8
[2023-05-17 13:23] VITALS: BP 124/81; TEMP 98; O2SAT 99
--- NOTE | 2023-05-21 11:56 | EKG ---
Test Date: 2023-05-17 Test Time: 11:24:39 Crane Helper: CRISTI MEASUREMENT RESULTS: Intervals: Rate: 57 DE: 154 QRSD: 90 QT: 416 QTc: 404 [place]: P: 63 DE: 154 QRS: -29 T: 30 INTERPRETIVE STATEMENTS: Sinus bradycardia Low voltage QRS Borderline ECG Compared to ECG 02/01/2023 16:59:19 Low QRS voltage now present Sinus rhythm no longer present Myocardial infarct finding no longer present Electronically Signed On 05-21-23 11:48:28 CDT by Lewis Renteria
== END 2023-05-17 13:15 | disposition home or self-care (01) ==
LOC: ER 10:25
DX: R07.9 Chest pain, unspecified (principal); M54.2 Cervicalgia; R51.9 Headache, unspecified; R55 Syncope and collapse
CPT/HCPCS: 96361; 85025; 36415; 83735; 82550; 84703; 84484; 80053; 70450; 70496; 70498; 71045; 96375; 96374; 99285; Q9967; J3360; J7030; 93005

== ENCOUNTER 2023-08-13 16:15 | Emergency (ER) | payer OTHER, SELFPAY ==
--- OUTSIDE RECORDS SUMMARY | 2023-08-13 16:24 | XMS REPORT | Continuity of Care Document ---
:1980 Author Organization [facility] t Address [address] [facility] [address] [place] [address] Care Team Providers Name Role Phone Asked, No Pcp Primary Care Physician Unavailable GLORIA JOHNSTON Attending Clinician Unavailable Gloria Jon Attending Clinician Unknown, Attending Attending Clinician Unavailable Doctor Unassigned, Sasser Attending Clinician Unavailable Harriett Metzger Attending Clinician Payers Payer Name Policy Type Policy Number Effective Date Expiration Date Amando velazquez [facility] JEANETTE [id number] 2022 00:00:00 Problems This patient has no known problems. Allergies, Adverse Reactions, Alerts Allergy Allergy Status Severity Reaction(s) Onset Inactive Treating Comm ents Source Name Type Date Date Clinician No Known DA Active U [facility] 12-26 [place] [facility] 00:00: e 00 [facility] No Known DA Active U [facility] Allergie 12-26 Clear s 00:00: [place] 00 [facility] NO KNOWN Drug Active Univers ALLERGIE Class ity of S [facility] Social History Social Habit Start Date Stop Date Quantity Comments Source History of tobacco Cigarette Smoker University of use [facility] Sexual orientation [facility] Exposure to 2022-12-22 2023-01-01 Not sure [facility] SARS-CoV-2 (event) 00:00:00 17:43:00 [facility] Tobacco use and 2023-01-01 2023-01-01 Smokeless Universit y of exposure 00:00:00 00:00:00 tobacco non-user [facility] History of Social 2018-10-09 2018-10-[address] function 00:00:00 00:00:00 Hospital Alcohol intake 2018-02-19 2018-02-19 Current drinker [facility] 00:00:00 00:00:00 of [facility] (finding) Alcohol Comment 2018-02-18 2018-02-18 socially [facility] 00:00:00 00:00:00 Hospital Sex Assigned At [birth year] [facility] 00:00:00 [facility]:00:00 Hospital Smoking Status Start Date Stop Date Source Tobacco smoking consumption Univ [facility] Smokes tobacco daily 2023-01-01 00:00:00 [facility] Never smoked tobacco [facility] Medications Ordered Filled Start Stop Current Ordering Indication Dosage Frequency Signature Comments Components Source Medication Medication Date Date Medication? Clinician (SIG) Name Name albuterol Yes [id number] 2{puff} Inhale 2 Univers 90 2-27 Puffs ity of mcg/actuati 00:00: every 6 Jorge as on inhaler 00 (six) Medical hours as Branch needed for Chest tightness or Bronchospa sm. promethazin 2022- No [id number] 5mL Take 5 mL Univers e-dextromet 01-01 03-10 by mouth 4 i ty of horphan 00:00: 05:59 (four) [place] 6.25-15 00 :00 times Medical mg/5 mL daily for Branch syrup 10 days. amoxicillin 2022- No [id number] 1{tbl} Take 1 Univers -clavulanat 2-27 03-10 tablet by it y of e 00:00: 05:59 mouth in [place] (AUGMENTIN) 00 :00 the [facility] 875-125 mg morning Branch per tablet and 1 tablet in the evening. Do all this for 10 days. predniSONE 2022-0 3- No [id number] 40mg Take 2 Univers 20 mg 2-27 03-05 tablets by ity of tablet 00:00: 05:59 mouth in [place] 00 :00 the Medical morning Branch for 5 days. Dose 2022-0 No Unknown 8 00:00: 00 &lt 2022-0 No 8- 00:00: 00 &lt 2022-0 No 300 8 00:00: 00 &lt 2022-0 No 10 06-15 00:00: 00 &lt 2022-0 No 50 8 00:00: 00 Dose 2022-0 No Unknown 06-15 00:00: 00 TAKE 1 2021-0 No 10 TABLET BY 8-11 MOUTH EVERY 00:00: DAY 00 TAKE 1 2021-0 No 800 TABLET BY 8-11 MOUTH EVERY 00:00: DAY 00 NEEDED FOR PAIN Dose 2022-0 No Unknown 8 00:00: 00 Dose 2022-0 No Unknown 8 00:00: 00 &lt 2022-0 No 8- 00:00: 00 &lt 2022-0 No 300 8 [...] 8- 00:00: 00 &lt 2022-0 No 10 8- 00:00: 00 &lt 2022-0 No 50 8 00:00: 00 Dose 2022-0 No Unknown 8 00:00: 00 TAKE 1 2022-0 No 10 TABLET BY 8-11 MOUTH EVERY 00:00: DAY 00 TAKE 1 2022-0 No 800 TABLET BY 8-11 MOUTH EVERY 00:00: DAY 00 NEEDED FOR PAIN Dose 2022-0 No Unknown 8 00:00: 00 &lt 2022-0 No 50 8- 00:00: 00 &lt 2022-0 No 50 06-13 00:00: 00 &lt 2022-0 No 50 - 00:00: 00 Dose 2022-0 No Unknown 8- [...] 8-03 00:00: 00 Dose 2022-0 No Unknown 8-03 00:00: 00 &lt 2022-0 No 8-03 00:00: [...] No Unknown 7-13 00:00: 00 APPLY 1 2022-0 No APPLICATION 7-13 ON THE SKIN 00:00: [...] 7- 00:00: 00 Dose 2022-0 No Unknown 7-13 00:00: 00 Dose 2022-0 No Unknown 7- 00:00: 00 Dose 2022-0 No 20 Unknown 7- 00:00: 00 Dose 2022-0 No 10 Unknown 7-13 00:00: 00 &lt 2022-0 No 7-13 00:00: 00 &lt 2022-0 No 150 7-13 00:00: 00 Bromfed DM 2022-0 No 10mg/5 [...] oral 00 syrup &lt 2022-0 No 50 7- 00:00: 00 &lt 2022-0 No 7-13 00:00: 00 &lt 2022-0 No 7-13 00:00: 00 &lt 2022-0 No 300 7- 00:00: 00 Dose 2022-0 No Unknown 7 00:00: 00 APPLY 1 2-0 No APPLICATION 7-13 ON THE SKIN 00:00: TWICE A DAY 00 TAKE 1 2021-0 No 100 CAPSULE BY 7-13 MOUTH 3 00:00: TIMES A DAY 00 NEEDED FOR COUGH Dose 2-0 No Unknown 7 00:00: 00 TAKE 1 2-0 No 100 CAPSULE BY 7-13 MOUTH 3 00:00: TIMES A DAY 00 NEEDED FOR COUGH TAKE 1 2021-0 No 100 CAPSULE BY 7-13 MOUTH 3 00:00: TIMES A DAY 00 NEEDED FOR COUGH &lt 2-0 No 250 7- 00:00: 00 Dose 2022-0 No Unknown 7- 00:00: 00 Dose 2022-0 No Unknown 7- 00:00: 00 Dose 2022-0 No 20 Unknown 7- 00:00: 00 Dose 2022-0 No 10 Unknown 7- 00:00: 00 &lt 2022-0 No 7-13 00:00: 00 &lt 2022-0 No 150 7- 00:00: 00 Bromfed DM 2-0 No 10mg/5 [...] 00:00: 00 Dose 2022-0 No 10 Unknown 7 00:00: 00 Dose 2022-0 No [...] NEEDED FOR COUGH &lt 2022-0 No 10 7-06 00:00: 00 TAKE 1 2022-0 No 10 [...] 2022-0 No 7-05 00:00: 00 TAKE 1 2-0 No TABLET BY 6-23 MOUTH TWICE 00:00: [...] TWICE 00:00: A DAY 00 ProAir HFA 2-0 No 1mcg/ac 90 5-18 tuation mcg/actuati 00:00: [...] mcg/actuati 00:00: on aerosol 00 inhaler cetirizine 2-0 No 1mg 10 mg 5-18 tablet 00:00: 00 fluticasone 2-0 No 1mcg/ac propionate 5-18 tuation 50 00:00: mcg/actuati 00 on nasal spray,suspe nsion Bromfed DM 2021-0 No 10mg/5 2 mg-30 5-18 mL mg-10 mg/5 00:00: mL oral 00 syrup ProAir HFA 2-0 No 1mcg/ac 90 5-18 tuation mcg/actuati 00:00: on aerosol 00 inhaler cetirizine 2-0 No 1mg 10 mg 5-18 tablet 00:00: [...] 00:00: mcg/actuati 00 on nasal spray,susptrinh Felton 2021-0 No 10mg/5 2 mg-30 5-18 mL mg-10 mg/5 00:00: mL oral 00 syrup ProAir HFA 2021-0 No 1mcg/ac 90 5-18 tuation mcg/actuati 00:00: on aerosol 00 inhaler cetirizine 2021-0 No 1mg 10 mg 5-18 tablet 00:00: 00 fluticasone 2021-0 No 1mcg/ac propionate 5-18 tuation 50 00:00: mcg/actuati 00 on nasal spray,susptrinh Felton 0 No 10mg/5 2 mg-30 5-18 mL mg-10 mg/5 00:00: mL oral 00 syrup ProAir HFA 2021-0 No 1mcg/ac 90 5-18 tuation mcg/actuati 00:00: on aerosol 00 inhaler cetirizine 2021-0 No 1mg 10 mg 5-18 tablet 00:00: 00 fluticasone 2021-0 No 1mcg/ac propionate 5-18 tuation 50 00:00: mcg/actuati 00 on nasal spray,susptrinh Felton 0 No 10mg/5 2 mg-30 5-18 mL mg-10 mg/5 00:00: mL oral 00 syrup Dose 2021-0 No Unknown 4-04 00:00: 00 Dose 2021-0 No Unknown 4-04 00:00: 00 Dose 2022-0 [...] 1-1 No Unknown 2-08 00:00: 00 Dose 1-1 [...] 2020-1 No Unknown 2-08 00:00: 00 Wellbutrin 2020- No 1mg XL 300 mg 1-20 24 hr 00:00: tablet, 00 extended release Wellbutrin 2020-1 No 1mg XL 300 mg 1-20 24 hr 00:00: tablet, 00 extended release Wellbutrin 2020- No 1mg XL 300 mg 1-20 24 hr 00:00: tablet, 00 extended release Wellbutrin 2020-1 No 1mg XL 300 mg 1-20 24 hr 00:00: tablet, 00 extended release Wellbutrin 2020-1 No 1mg XL 300 mg 1-20 24 hr 00:00: tablet, 00 extended release Wellbutrin 2020- No 1mg XL 300 mg 1-20 24 hr 00:00: tablet, 00 extended release cyclobenzap 2020- No 1mg rine 10 mg 1-16 tablet 00:00: 00 gabapentin 2020- No 1mg 300 mg 1-16 capsule 00:00: 00 indomethaci 2020-1 No 1mg n 50 mg 1-16 capsule 00:00: 00 cyclobenzap 2020- No 1mg rine 10 mg 1-16 tablet [...] 50 mg 1-16 capsule 00:00: 00 cyclobenzap 2020- No 1mg rine 10 mg 1-16 tablet [...] mg 1-08 capsule 00:00: 00 Advair HFA 2020-1 No 1mcg/ac 115 mcg-21 1-08 tuation mcg/actuati 00:00: on aerosol 00 inhaler azithromyci 2020-11 No 1mg n 250 mg 1-08 tablet 00:00: 00 loratadine 2020-11 No 1mg 10 mg 1-08 capsule 00:00: [...] 250 mg 1-08 tablet 00:00: 00 loratadine 2020-11 No 1mg 10 mg 1-08 capsule 00:00: [...] 00 famotidine 2020-1 No 1mg 20 mg 0-27 tablet 00:00: 00 famotidine 2020-1 No 1mg 20 mg 0-27 tablet 00:00: 00 famotidine 2020- No 1mg 20 mg 0-27 tablet 00:00: 00 famotidine 2020- No 1mg 20 mg 0-27 tablet 00:00: 00 famotidine 2020-1 No 1mg 20 mg 0-27 tablet 00:00: 00 famotidine 2020-1 No 1mg 20 mg 0-27 tablet 00:00: [...] hr 00:00: tablet, 00 extended release trazodone 2020-11 No 5mg 50 mg 0-15 tablet 00:00: 00 Wellbutrin 1-1 No 1mg XL 150 mg 0-15 24 hr 00:00: tablet, 00 extended release trazodone 1-1 No 5mg 50 mg 0-15 tablet 00:00: [...] hr 00:00: tablet, 00 extended release Wellbutrin 1-1 No 1mg XL 150 mg 0-04 24 [...] mg 1-06 tablet 00:00: 00 Lidoderm 5 2019-11 No 1% % topical 1-06 patch 00:00: 00 cyclobenzap 2019-11 No 1mg rine 5 mg 1-06 tablet 00:00: 00 Lidoderm 5 2019-11 No 1% % topical 1-06 patch 00:00: 00 cyclobenzap 2019-11 No 1mg rine 5 mg 1-06 tablet 00:00: 00 Lidoderm 5 2019-11 No 1% % topical 1-06 patch 00:00: [...] 23:44:00 130 mm[Hg] Univer sity of pressure [facility] Diastolic blood 2023-01-01 23:44:00 84 mm[Hg] [facility] Heart rate 2023-01-01 23:44:00 80 /min Universi ty [facility] Body temperature 2023-01-01 23:44:00 37.28 Ailin [facility] Respiratory rate 2023-01-01 23:44:00 17 /min [facility] Body height 2023-01-01 23:44:00 165.1 cm Universi ty [facility] Body weight 2023-01-01 23:44:00 90.22 kg Universi [facility] BMI 2023-01-01 23:44:00 33.10 kg/m2 [facility] Oxygen saturation in 2023-01-01 23:44:00 95 /min [facility] Arterial blood by [facility] Pulse oximetry Branch BP Systolic 2022-07-12 17:45:00 [...] Procedure Date / Time Performed Performing Clinician [facility] e ASSIGNMENT OF BENEFITS 2023-01-01 23:24:47 Doctor Unassigned, No [place] [facility] Name [facility] Branch REFERRAL- 2021-05-17 05:01:00 Doctor Unassigned, No [facility] REQUEST/RESPONSE Name [facility] Plan of Care Planned Activity Planned Date Details Comments Source Goal Plan of Care Note [code = 94305-8] Goal Plan of Care Note [code = 14218-6] Goal Plan of Care Note [code = 35078-5] Goal Plan of Care Note [code = 39220-3] Goal Plan of Care Note [code = 06876-2] Goal Plan of Care Note [code = 09910-3] Goal Plan of Care Note [code = 81003-6] Goal Plan of Care Note [code = 01705-3] Goal Plan of Care Note [code = 87336-5] Goal Plan of Care Note [code = 43423-7] Goal Plan of Care Note [code = 59148-8] Goal Plan of Care Note [code = 79502-2] Goal Plan of Care Note [code = 00979-7] Goal Plan of Care Note [code = 47728-9] Goal Plan of Care Note [code = 34612-3] Goal Plan of Care Note [code = 85760-5] Goal Plan of Care Note [code = 45023-5] Goal Plan of Care Note [code = 65515-0] Goal Plan of Care Note [code = 33986-7] Goal Plan of Care Note [code = 70906-0] Goal Plan of Care Note [code = 58187-3] Goal Plan of Care Note [code = 36017-5] Goal Plan of Care Note [code = 38676-2] Goal Plan of Care Note [code = 94401-9] Goal Plan of Care Note [code = 07781-6] Goal Plan of Care Note [code = 20342-8] Goal Plan of Care Note [code = 53293-6] Goal Plan of Care Note [code = 67580-6] Goal Plan of Care Note [code = 94465-3] Goal Plan of Care Note [code = 16853-7] Goal Plan of Care Note [code = 81340-1] Goal Plan of Care Note [code = 49715-2] Goal Plan of Care Note [code = 48496-7] Goal Plan of Care Note [code = 01034-5] Goal Plan of Care Note [code = 63915-1] Goal Plan of Care Note [code = 93612-7] Goal Plan of Care Note [code = 79886-1] Goal Plan of Care Note [code = 68603-6] Goal Plan of Care Note [code = 12526-0] Goal Plan of Care Note [code = 11195-4] Goal Plan of Care Note [code = 99817-6] Goal Plan of Care Note [code = 69757-8] Goal Plan of Care Note [code = 97492-9] Goal Plan of Care Note [code = 98082-1] Goal Plan of Care Note [code = 23449-2] Goal Plan of Care Note [code = 16693-8] Goal Plan of Care Note [code = 29243-5] Goal Plan of Care Note [code = 48393-7] Goal Plan of Care Note [code = 84741-7] Goal Plan of Care Note [code = 23785-7] Goal Plan of Care Note [code = 63375-8] Goal Plan of Care Note [code = 70669-8] Goal Plan of Care Note [code = 86061-7] Goal Plan of Care Note [code = 28544-4] Goal Plan of Care Note [code = 56979-2] Goal Plan of Care Note [code = 44669-2] Goal Plan of Care Note [code = 70057-9] Goal Plan of Care Note [code = 77898-9] Goal Plan of Care Note [code = 36321-9] Goal Plan of Care Note [code = 44104-8] Goal Plan of Care Note [code = 76182-4] Goal Plan of Care Note [code = 93280-9] Goal Plan of Care Note [code = 61760-6] Goal Plan of Care Note [code = 54357-9] Goal Plan of Care Note [code = 40112-0] Goal Plan of Care Note [code = 04152-9] Goal Plan of Care Note [code = 50562-7] Goal Plan of Care Note [code = 53204-5] Goal Plan of Care Note [code = 33392-2] Goal Plan of Care Note [code = 26734-7] Goal Plan of Care Note [code = 36325-2] Goal Plan of Care Note [code = 71191-9] Goal Plan of Care Note [code = 46775-9] Goal Plan of Care Note [code = 81599-5] Goal Plan of Care Note [code = 79296-2] Goal Plan of Care Note [code = 57633-2] Goal Plan of Care Note [code = 06818-0] Goal Plan of Care Note [code = 59058-5] Goal Plan of Care Note [code = 17205-8] Goal Plan of Care Note [code = 67295-7] Goal Plan of Care Note [code = 22316-4] Goal Plan of Care Note [code = 09000-6] Goal Plan of Care Note [code = 19910-8] Goal Plan of Care Note [code = 04235-4] Goal Plan of Care Note [code = 35685-6] Goal Plan of Care Note [code = 39111-3] Goal Plan of Care Note [code = 24752-1] Goal Plan of Care Note [code = 94916-6] Goal Plan of Care Note [code = 63641-4] Goal Plan of Care Note [code = 82010-6] Goal Plan of Care Note [code = 66873-5] Goal Plan of Care Note [code = 00046-6] Goal Plan of Care Note [code = 32698-3] Goal Plan of Care Note [code = 10372-6] Goal Plan of Care Note [code = 74045-3] Goal Plan of Care Note [code = 86982-6] Goal Plan of Care Note [code = 40564-6] Goal Plan of Care Note [code = 32247-3] Goal Plan of Care Note [code = 02994-2] Goal Plan of Care Note [code = 86696-5] Goal Plan of Care Note [code = 00885-7] Goal Plan of Care Note [code = 23172-3] Goal Plan of Care Note [code = 80591-3] Goal Plan of Care Note [code = 84110-6] Goal Plan of Care Note [code = 89802-3] Goal Plan of Care Note [code = 07232-3] Goal Plan of Care Note [code = 29266-0] Goal Plan of Care Note [code = 69716-4] Goal Plan of Care Note [code = 10456-6] Goal Plan of Care Note [code = 52350-8] Goal Plan of Care Note [code = 41395-5] Goal Plan of Care Note [code = 56455-1] Goal Plan of Care Note [code = 57111-9] Goal Plan of Care Note [code = 83669-1] Goal Plan of Care Note [code = 28223-2] Goal Plan of Care Note [code = 45961-3] Goal Plan of Care Note [code = 38234-6] Goal Plan of Care Note [code = 77342-8] Goal Plan of Care Note [code = 43399-3] Goal Plan of Care Note [code = 90189-5] Goal Plan of Care Note [code = 02122-5] Goal Plan of Care Note [code = 05319-0] Goal Plan of Care Note [code = 56770-9] Goal Plan of Care Note [code = 45793-2] Goal Plan of Care Note [code = 40062-5] Goal Plan of Care Note [code = 15612-5] Goal Plan of Care Note [code = 44305-4] Goal Plan of Care Note [code = 79832-4] Goal Plan of Care Note [code = 95229-5] Goal Plan of Care Note [code = 15172-7] Goal Plan of Care Note [code = 68920-6] Goal Plan of Care Note [code = 31285-8] Goal Plan of Care Note [code = 59790-4] Goal Plan of Care Note [code = 15185-3] Goal Plan of Care Note [code = 61863-3] Goal Plan of Care Note [code = 10087-9] Goal Plan of Care Note [code = 16117-3] Goal Plan of Care Note [code = 22788-9] Goal Plan of Care Note [code = 50216-8] Goal Plan of Care Note [code = 80965-9] Goal Plan of Care Note [code = 48761-4] Goal Plan of Care Note [code = 16039-9] Goal Plan of Care Note [code = 82467-4] Goal Plan of Care Note [code = 57419-8] Goal Plan of Care Note [code = 51229-7] Goal Plan of Care Note [code = 07401-7] Goal Plan of Care Note [code = 09332-6] Goal Plan of Care Note [code = 23814-2] Goal Plan of Care Note [code = 33113-8] Goal Plan of Care Note [code = 96597-0] Goal Plan of Care Note [code = 18034-5] Goal Plan of Care Note [code = 61929-8] Goal Plan of Care Note [code = 92969-1] Goal Plan of Care Note [code = 39395-0] Goal Plan of Care Note [code = 37755-6] Goal Plan of Care Note [code = 78656-2] Goal Plan of Care Note [code = 11201-3] Goal Plan of Care Note [code = 94500-0] Goal Plan of Care Note [code = 36312-1] Goal Plan of Care Note [code = 86562-1] Goal Plan of Care Note [code = 33423-6] Goal Plan of Care Note [code = 66467-1] Goal Plan of Care Note [code = 03828-3] Goal Plan of Care Note [code = 17730-3] Goal Plan of Care Note [code = 28864-6] Goal Plan of Care Note [code = 37702-0] Goal Plan of Care Note [code = 63115-6] Goal Plan of Care Note [code = 32068-0] Goal Plan of Care Note [code = 30554-9] Goal Plan of Care Note [code = 64924-0] Goal Plan of Care Note [code = 72367-7] Goal Plan of Care Note [code = 80847-5] Goal Plan of Care Note [code = 16676-1] Goal Plan of Care Note [code = 12213-5] Goal Plan of Care Note [code = 19294-3] Goal Plan of Care Note [code = 30339-3] Goal Plan of Care Note [code = 58374-7] Goal Plan of Care Note [code = 41535-1] Goal Plan of Care Note [code = 34333-9] Goal Plan of Care Note [code = 65064-6] Goal Plan of Care Note [code = 35941-8] Goal Plan of Care Note [code = 19235-8] Goal Plan of Care Note [code = 25008-1] Goal Plan of Care Note [code = 94202-9] Goal Plan of Care Note [code = 50983-1] Goal Plan of Care Note [code = 98802-7] Goal Plan of Care Note [code = 43326-5] Goal Plan of Care Note [code = 17921-0] Goal Plan of Care Note [code = 42768-4] Goal Plan of Care Note [code = 66567-9] Goal Plan of Care Note [code = 07618-9] Goal Plan of Care Note [code = 40563-2] Goal Plan of Care Note [code = 54515-1] Goal Plan of Care Note [code = 51361-3] Goal Plan of Care Note [code = 12668-6] Goal Plan of Care Note [code = 71585-2] Goal Plan of Care Note [code = 99171-9] Goal Plan of Care Note [code = 67667-2] Goal Plan of Care Note [code = 96272-2] Goal Plan of Care Note [code = 27327-2] Goal Plan of Care Note [code = 13516-8] Goal Plan of Care Note [code = 30686-6] Goal Plan of Care Note [code = 77403-9] Goal Plan of Care Note [code = 95383-2] Goal Plan of Care Note [code = 37271-7] Goal Plan of Care Note [code = 64537-7] Goal Plan of Care Note [code = 43224-2] Goal Plan of Care Note [code = 16651-8] Goal Plan of Care Note [code = 16757-2] Goal Plan of Care Note [code = 45833-0] Goal Plan of Care Note [code = 92588-9] Goal Plan of Care Note [code = 00299-1] Goal Plan of Care Note [code = 35184-1] Goal Plan of Care Note [code = 08046-4] Goal Plan of Care Note [code = 72972-6] Goal Plan of Care Note [code = 37811-2] Goal Plan of Care Note [code = 01343-2] Goal Plan of Care Note [code = 75076-8] Goal Plan of Care Note [code = 07857-4] Goal Plan of Care Note [code = 37060-3] Goal Plan of Care Note [code = 47246-9] Goal Plan of Care Note [code = 03889-1] Goal Plan of Care Note [code = 56145-1] Goal Plan of Care Note [code = 24030-6] Goal Plan of Care Note [code = 08373-2] Goal Plan of Care Note [code = 57994-1] Goal Plan of Care Note [code = 15565-4] Goal Plan of Care Note [code = 01437-7] Encounters Start End Encounter Admission Attending Care Care Encounter Source Date/Time Date/Time Type Type Clinicians Facility Department ID 2023-07-17 2023-07-17 Outpatient DEBRA RICHARDSON [id number] Kj 11:59:56 11:59:56 0912 Laci Estes 2023-05-30 2023-05-30 Outpatient DEBRA RICHARDSON [id number] Kj 17:50:55 17:50:55 0726 [place] 2023-05-19 2023-05-[address] [facility] [id number] Kj 11:17:39 11:17:39 0715 [place] 2023-05-18 2023-05-[address] [facility] [id number] Kj 16:47:46 16:47:46 0714 [place] 2023-05-15 2023-05-15 Outpatient [facility] [id number] Kj 13:40:40 13:40:40 0711 [place] 2023-01-01 2023-01-01 Outpatient R AFSHANVioleta [facility] [id number] Univers 17:20:00 18:27:12 RANIA ity of [facility] 2023-01-01 2023-01-01 Urgent Gloria Johnston [facility] 1.2.840.114 [id number] Univers 17:20:00 17:40:00 Care Unknown, Attending HEALTH 350.1.13.10 ity of [facility] 4.2.7.2.686 Jorge as VALERIE?BLEA [phone] Wi dical [address] MEDICAL OFFICE BUILDING 2023-01-01 2023-01-01 Orders Doctor KELLY 1.2.840.114 [id number] Univers 00:00:00 00:00:00 Only Unassigned, JACQUI 350.1.13.10 ity of [place] [facility] 4.2.7.2.686 Jorge as [phone] [address] 2022-12-15 2022-12-[address] [facility] [id number] Kj 13:38:35 13:38:35 0210 [facility] 2022-08-22 2022-08-[address] [facility] [id number] Kj 17:40:11 17:40:11 [address] [place] 2022-07-12 2022-07-12 Outpatient [id number] 00:00:00 00:00:00 Visit 76dc-4b06 6dc-4b06-9 -8t05-o37 o30-x877rs 2ajwj371c it668p 2022-07-10 2022-07-10 Outpatient [id number] 0ucn73-v 00:00:00 00:00:00 Visit h5pq-18os 0ee-45cf-9 -938b-5a1 38b-5a1a1c f9qdn2r76 ac8f05 2022-07-05 2022-07-05 Outpatient [id number]-k 00:00:00 00:00:00 Visit l61d-8590 83a-4586-a -v47r-3w5 21d-4f4bd8 yy6254yps 078bde 2022-06-07 2022-06-07 Outpatient [id number]-h 00:00:00 00:00:00 Visit y8f8-62w9 6a0-43j4-0 -9k22-i3q j37-p0elo5 wm768e130 75f253 2022-05-17 2022-05-17 Outpatient [id number] 34ms92-5 00:00:00 00:00:00 Visit 6352-0702 048-4700-8 -88db-962 8db-9626fc 4slv57lo1 d71ae7 2022-05-10 2022-05-10 Outpatient [id number]- [id number] 05d80a-w 00:00:00 00:00:00 Visit q399-0x83 762-4a90-b -g3f8-7k0 3l6-3j911h 43k094l26 388b78 2021-07-12 2021-07-12 Letter KELLY Rodrigues 1.2.840.114 [id number] Univers 00:00:00 00:00:00 (Out) Harriett OSMAN 350.1.13.10 it y of HOSPITAL 4.2.7.2.686 Jorge as [phone] [address] 2021-05-17 2021-05-17 Orders Doctor KELLY 1.2.840.114 [id number] Univers 00:00:00 00:00:00 Only UnassignedJACQUI 350.1.13.10 ity of [place] [facility] 4.2.7.2.686 Jorge as [id number] [facility] [address] 2017-12-10 2017-12-10 Departed [facility] [id number] 15:39:00 16:35:00 Emergency [address] [facility] Results Test Description Test Time Test Comments Results Result Comments Source HEMOGLOBIN A1c 2023-06-01 02:24:19 Test Item Value Reference Range Interpretation Comme nts HEMOGLOBIN A1c (test code = 5.3 % 4.2-5.6 UNLESS OTHERWISE INDICATED, ALL [address]2545) TESTING PERFORM ED AT [facility] [place]. [address] [place] [id number] TOW CAR DRIVER: CHRISTINE SCOTT M.D. [place] NUMBER [id number] CAP ACCREDITATION N O. [id number] SARS-CoV-2 (COVID-19), RT-PCR/[id number] 08:40:41 Test Item Value Reference Interpretation Comments Range SARS-CoV-2 POSITIVE SEE NOTE A SARS-CoV-2 RNA INTERPRETATION DETECTEDPosit rosa results (test code = [place] [address]) presence of SURINDER S-CoV-2 RNA;clinical co rrelation with patient hi story and other diagnosticinfor mation is necessary to de termine patient infecti on status.Positive results do not rule out bacterial infec tion or co-infectionwit h other viruses. Positi ve and negative predic tive values oftestin g are highly dependen t on prevalence. SOURCE (test code NASOPHARYNGEAL Note: M ethodology is = 53403) Vielka Odilon [place] l-Time RT-PCR. The exp ected result or [...] prov ided by method given in report:[email or web address] / Alternatively, see downloadable PD F fact sheet at:[email or web address] PCR UNLESS OTHERWIS E INDICATED, ALL TESTING PERFORMED [facility]. 87 [place] [address], [place] [id number] [address] LABORATORY DIRE CTOR: Janae SINGHIA NUMBER [id number] [place] [id number] SARS-CoV-2 (COVID-19) by RT-PCR (HIGH RISK)2021-11-30 00:00:00 Test Item Value Reference Range Interpretation Comments SARS-CoV-2 INTERPRETATION POSITIVE (test code = 61320) SOURCE (test code = 83784) NASOPHARYNGEAL SARS-CoV-2 (COVID-19) by RT-PCR (HIGH RISK)2021-11-30 00:00:00 Test Item Value Reference Range Interpretation Comments SARS-CoV-2 INTERPRETATION POSITIVE (test code = 72889) SOURCE (test code = 13986) NASOPHARYNGEAL SARS-CoV-2 (COVID-19) by RT-PCR (HIGH RISK)2021-11-30 00:00:00 Test Item Value Reference Range Interpretation Comments SARS-CoV-2 INTERPRETATION POSITIVE (test code = 69911) SOURCE (test code = 72486) NASOPHARYNGEAL SARS-CoV-2 (COVID-19) by RT-PCR (HIGH RISK)2021-11-30 00:00:00 Test Item Value Reference Range Interpretation Comments SARS-CoV-2 INTERPRETATION POSITIVE (test code = 34535) SOURCE (test code = 27122) NASOPHARYNGEAL SARS-CoV-2 (COVID-19) by RT-PCR (HIGH RISK)2021-11-30 00:00:00 Test Item Value Reference Range Interpretation Comments SARS-CoV-2 INTERPRETATION POSITIVE (test code = 50840) SOURCE (test code = 04757) NASOPHARYNGEAL SARS-CoV-2 (COVID-19) by RT-PCR (HIGH RISK)2021-11-30 00:00:00 Test Item Value Reference Range Interpretation Comments SARS-CoV-2 INTERPRETATION POSITIVE (test code = 96334) SOURCE (test code = 33761) NASOPHARYNGEAL SARS-CoV-2 (COVID-19) by RT-PCR (HIGH RISK)2021-11-30 00:00:00 Test Item Value Reference Range Interpretation Comments SARS-CoV-2 INTERPRETATION POSITIVE (test code = 52064) SOURCE (test code = 48543) NASOPHARYNGEAL SARS-CoV-2 (COVID-19) by RT-PCR (HIGH RISK)2021-11-30 00:00:00 Test Item Value Reference Range Interpretation Comments SARS-CoV-2 INTERPRETATION POSITIVE (test code = 00202) SOURCE (test code = 07047) NASOPHARYNGEAL SARS-CoV-2 (COVID-19) by RT-PCR (HIGH RISK)2021-11-30 00:00:00 Test Item Value Reference Range Interpretation Comments SARS-CoV-2 INTERPRETATION POSITIVE (test code = 41452) SOURCE (test code = 00024) NASOPHARYNGEAL SARS-CoV-2 (COVID-19), RT-PCR/[id number] 13:12:43 Test Item Value Reference Interpretation Comments Range SARS-CoV-2 POSITIVE SEE NOTE A SARS-CoV-2 RNA INTERPRETATION DETECTEDPosit rosa results (test code = [place] the [address]) presence of SURINDER S-CoV-2 RNA;clinical co rrelation with patient hi story and other diagnosticinfor mation is necessary to de termine patient infecti on status.Positive results do not rule out bacterial infec tion or co-infectionwit h other viruses. Positi ve and negative predic tive values oftestin g are highly dependen t on prevalence. SOURCE (test code NASOPHARYNGEAL Note: M ethodology is = 79025) Vielka Odilon [place] l-Time RT-PCR. The exp ected result or refer ence range is NEGATI VE (Not Detected). For more information reg arding COVID-19 testin g to include clinicalinforma tion, methodology det ail, intended use, F DA authorization andrecommended fact sheets for rolly ents or healthcare prov iders, see [employer] Announcement: S ARS-CoV-2 (COVID-19) by N AAT at URL below (note ,fact sheets are prov ided by method given in report:[email or web address] Alternatively, see downloadable PD F fact sheet at:[email or web address] PCR UNLESS OTHERWIS E INDICATED, ALL TESTING PERFORMED [facility] [address] [place] [address], [place] [address] 4 LABORATORY DIRE CTOR: WELLINGTON THOMPSON M.D. CLIA NUMBER [id number] [facility] [place]. [id number] SARS-CoV-2 (COVID-19) by RT-PCR (HIGH RISK)2021-11-23 00:00:00 Test Item Value Reference Range Interpretation Comments SARS-CoV-2 INTERPRETATION POSITIVE (test code = 41836) SOURCE (test code = 98768) NASOPHARYNGEAL SARS-CoV-2 (COVID-19) by RT-PCR (HIGH RISK)2021-11-23 00:00:00 Test Item Value Reference Range Interpretation Comments SARS-CoV-2 INTERPRETATION POSITIVE (test code = 17010) SOURCE (test code = 71111) NASOPHARYNGEAL SARS-CoV-2 (COVID-19) by RT-PCR (HIGH RISK)2021-11-23 00:00:00 Test Item Value Reference Range Interpretation Comments SARS-CoV-2 INTERPRETATION POSITIVE (test code = 47722) SOURCE (test code = 79733) NASOPHARYNGEAL SARS-CoV-2 (COVID-19) by RT-PCR (HIGH RISK)2021-11-23 00:00:00 Test Item Value Reference Range Interpretation Comments SARS-CoV-2 INTERPRETATION POSITIVE (test code = 95889) SOURCE (test code = 94524) NASOPHARYNGEAL SARS-CoV-2 (COVID-19) by RT-PCR (HIGH RISK)2021-11-23 00:00:00 Test Item Value Reference Range Interpretation Comments SARS-CoV-2 INTERPRETATION POSITIVE (test code = 34182) SOURCE (test code = 74337) NASOPHARYNGEAL SARS-CoV-2 (COVID-19) by RT-PCR (HIGH RISK)2021-11-23 00:00:00 Test Item Value Reference Range Interpretation Comments SARS-CoV-2 INTERPRETATION POSITIVE (test code = 24646) SOURCE (test code = 47888) NASOPHARYNGEAL SARS-CoV-2 (COVID-19) by RT-PCR (HIGH RISK)2021-11-23 00:00:00 Test Item Value Reference Range Interpretation Comments SARS-CoV-2 INTERPRETATION POSITIVE (test code = 16642) SOURCE (test code = 99221) NASOPHARYNGEAL SARS-CoV-2 (COVID-19) by RT-PCR (HIGH RISK)2021-11-23 00:00:00 Test Item Value Reference Range Interpretation Comments SARS-CoV-2 INTERPRETATION POSITIVE (test code = 05782) SOURCE (test code = 46645) NASOPHARYNGEAL SARS-CoV-2 (COVID-19) by RT-PCR (HIGH RISK)2021-11-23 00:00:00 Test Item Value Reference Range Interpretation Comments SARS-CoV-2 INTERPRETATION POSITIVE (test code = 46725) SOURCE (test code = 01020) NASOPHARYNGEAL [id number] 00:00:00 Test Item Value Reference Range Interpretation Comments TESTOSTERONE (test code = 2830) 60 NG/DL [id number] 00:00:00 Test Item Value Reference Range Interpretation Comments ESTRADIOL (test code = 2505) 111.0 PG/ML [id number] 00:00:00 Test Item Value Reference Range Interpretation Comments ESTRADIOL (test code = 2505) 111.0 PG/ML FSH + LH [id number] 00:00:00 Test Item Value Reference Range Interpretation Comments FOLLICLE STIM HORMONE (test code = 6.5 IU/L 2700) LUTEINIZING HORMONE (test code = 38.4 IU/L 2776) [id number] 00:00:00 Test Item Value Reference Range Interpretation Comments PROGESTERONE (test code = 2790) 0.93 NG/ML [id number] 00:00:00 Test Item Value Reference Range Interpretation Comments RPR RESULT (test code = NON-REACTIVE 3501) RPR TITER (test code = 3500) NOT INDIC. TITER [id number] 00:00:00 Test Item Value Reference Range Interpretation Comments RPR RESULT (test code = NON-REACTIVE 3501) RPR TITER (test code = 3500) NOT INDIC. TITER HIV AB/AG COMBO RFLX [id number] 00:00:00 Test Item Value Reference Range Interpretation Comments HIV 1/2 4TH GEN, RFLX CONF (test NON-REACTIVE code = 3514) GC AND CHLAMYDIA, AMPLIFIED, [id number] 00:00:00 Test Item Value Reference Range Interpretation Comments GONORRHEA, NAAT (test code = 32935) NEGATIVE CHLAMYDIA, NAAT (test code = 27636) NEGATIVE [id number] 00:00:00 Test Item Value Reference Range Interpretation Comments TSH, THIRD GENERATION (test code 1.920 UIU/ML = 2821) [id number] 00:00:00 Test Item Value Reference Range Interpretation Comments TSH, THIRD GENERATION (test code 1.920 UIU/ML = 2821) [id number] 00:00:00 Test Item Value Reference Range Interpretation Comments TESTOSTERONE (test code = 2830) 60 NG/DL [id number] 00:00:00 Test Item Value Reference Range Interpretation Comments TESTOSTERONE (test code = 2830) 60 NG/DL [id number] 00:00:00 Test Item Value Reference Range Interpretation Comments ESTRADIOL (test code = 2505) 111.0 PG/ML [id number] 00:00:00 Test Item Value Reference Range Interpretation Comments ESTRADIOL (test code = 2505) 111.0 PG/ML [id number] 00:00:00 Test Item Value Reference Range Interpretation Comments ESTRADIOL (test code = 2505) 111.0 PG/ML FSH + LH [id number] 00:00:00 Test Item Value Reference Range Interpretation Comments FOLLICLE STIM HORMONE (test code = 6.5 IU/L 2700) LUTEINIZING HORMONE (test code = 38.4 IU/L 2776) FSH + LH [id number] 00:00:00 Test Item Value Reference Range Interpretation Comments FOLLICLE STIM HORMONE (test code = 6.5 IU/L 2700) LUTEINIZING HORMONE (test code = 38.4 IU/L 2776) [id number] 00:00:00 Test Item Value Reference Range Interpretation Comments PROGESTERONE (test code = 2790) 0.93 NG/ML [id number] 00:00:00 Test Item Value Reference Range Interpretation Comments PROGESTERONE (test code = 2790) 0.93 NG/ML [id number] 00:00:00 Test Item Value Reference Range Interpretation Comments RPR RESULT (test code = NON-REACTIVE 3501) RPR TITER (test code = 3500) NOT INDIC. TITER [id number] 00:00:00 Test Item Value Reference Range Interpretation Comments RPR RESULT (test code = NON-REACTIVE 3501) RPR TITER (test code = 3500) NOT INDIC. TITER [id number] 00:00:00 Test Item Value Reference Range Interpretation Comments RPR RESULT (test code = NON-REACTIVE 3501) RPR TITER (test code = 3500) NOT INDIC. TITER HIV AB/AG COMBO RFLX [id number] 00:00:00 Test Item Value Reference Range Interpretation Comments HIV 1/2 4TH GEN, RFLX CONF (test NON-REACTIVE code = 3514) HIV AB/AG COMBO RFLX [id number] 00:00:00 Test Item Value Reference Range Interpretation Comments HIV 1/2 4TH GEN, RFLX CONF (test NON-REACTIVE code = 3514) GC AND CHLAMYDIA, AMPLIFIED, [id number] 00:00:00 Test Item Value Reference Range Interpretation Comments GONORRHEA, NAAT (test code = 21066) NEGATIVE CHLAMYDIA, NAAT (test code = 92040) NEGATIVE GC AND CHLAMYDIA, AMPLIFIED, [id number] 00:00:00 Test Item Value Reference Range Interpretation Comments GONORRHEA, NAAT (test code = 27246) NEGATIVE CHLAMYDIA, NAAT (test code = 20250) NEGATIVE [id number] 00:00:00 Test Item Value Reference Range Interpretation Comments TSH, THIRD GENERATION (test code 1.920 UIU/ML = 2821) [id number] 00:00:00 Test Item Value Reference Range Interpretation Comments TSH, THIRD GENERATION (test code 1.920 UIU/ML = 2821) [id number] 00:00:00 Test Item Value Reference Range Interpretation Comments TSH, THIRD GENERATION (test code 1.920 UIU/ML = 2821) [id number] 00:00:00 Test Item Value Reference Range Interpretation Comments TESTOSTERONE (test code = 2830) 60 NG/DL [id number] 00:00:00 Test Item Value Reference Range Interpretation Comments TESTOSTERONE (test code = 2830) 60 NG/DL [id number] 00:00:00 Test Item Value Reference Range Interpretation Comments ESTRADIOL (test code = 2505) 111.0 PG/ML [id number] 00:00:00 Test Item Value Reference Range Interpretation Comments ESTRADIOL (test code = 2505) 111.0 PG/ML [id number] 00:00:00 Test Item Value Reference Range Interpretation Comments ESTRADIOL (test code = 2505) 111.0 PG/ML FSH + LH [id number] 00:00:00 Test Item Value Reference Range Interpretation Comments FOLLICLE STIM HORMONE (test code = 6.5 IU/L 2700) LUTEINIZING HORMONE (test code = 38.4 IU/L 2776) FSH + LH [id number] 00:00:00 Test Item Value Reference Range Interpretation Comments FOLLICLE STIM HORMONE (test code = 6.5 IU/L 2700) LUTEINIZING HORMONE (test code = 38.4 IU/L 2776) [id number] 00:00:00 Test Item Value Reference Range Interpretation Comments PROGESTERONE (test code = 2790) 0.93 NG/ML [id number] 00:00:00 Test Item Value Reference Range Interpretation Comments PROGESTERONE (test code = 2790) 0.93 NG/ML [id number] 00:00:00 Test Item Value Reference Range Interpretation Comments RPR RESULT (test code = NON-REACTIVE 3501) RPR TITER (test code = 3500) NOT INDIC. TITER [id number] 00:00:00 Test Item Value Reference Range Interpretation Comments RPR RESULT (test code = NON-REACTIVE 3501) RPR TITER (test code = 3500) NOT INDIC. TITER [id number] 00:00:00 Test Item Value Reference Range Interpretation Comments RPR RESULT (test code = NON-REACTIVE 3501) RPR TITER (test code = 3500) NOT INDIC. TITER HIV AB/AG COMBO RFLX [id number] 00:00:00 Test Item Value Reference Range Interpretation Comments HIV 1/2 4TH GEN, RFLX CONF (test NON-REACTIVE code = 3514) HIV AB/AG COMBO RFLX [id number] 00:00:00 Test Item Value Reference Range Interpretation Comments HIV 1/2 4TH GEN, RFLX CONF (test NON-REACTIVE code = 3514) GC AND CHLAMYDIA, AMPLIFIED, [id number] 00:00:00 Test Item Value Reference Range Interpretation Comments GONORRHEA, NAAT (test code = 99259) NEGATIVE CHLAMYDIA, NAAT (test code = 76156) NEGATIVE GC AND CHLAMYDIA, AMPLIFIED, [id number] 00:00:00 Test Item Value Reference Range Interpretation Comments GONORRHEA, NAAT (test code = 54577) NEGATIVE CHLAMYDIA, NAAT (test code = 17788) NEGATIVE [id number] 00:00:00 Test Item Value Reference Range Interpretation Comments TSH, THIRD GENERATION (test code 1.920 UIU/ML = 2821) [id number] 00:00:00 Test Item Value Reference Range Interpretation Comments TSH, THIRD GENERATION (test code 1.920 UIU/ML = 2821) [id number] 00:00:00 Test Item Value Reference Range Interpretation Comments TSH, THIRD GENERATION (test code 1.920 UIU/ML = 2821) [id number] 00:00:00 Test Item Value Reference Range Interpretation Comments TESTOSTERONE (test code = 2830) 60 NG/DL [id number] 00:00:00 Test Item Value Reference Range Interpretation Comments TESTOSTERONE (test code = 2830) 60 NG/DL [id number] 00:00:00 Test Item Value Reference Range Interpretation Comments ESTRADIOL (test code = 2505) 111.0 PG/ML [id number] 00:00:00 Test Item Value Reference Range Interpretation Comments ESTRADIOL (test code = 2505) 111.0 PG/ML [id number] 00:00:00 Test Item Value Reference Range Interpretation Comments ESTRADIOL (test code = 2505) 111.0 PG/ML FSH + LH [id number] 00:00:00 Test Item Value Reference Range Interpretation Comments FOLLICLE STIM HORMONE (test code = 6.5 IU/L 2700) LUTEINIZING HORMONE (test code = 38.4 IU/L 2776) FSH + LH [id number] 00:00:00 Test Item Value Reference Range Interpretation Comments FOLLICLE STIM HORMONE (test code = 6.5 IU/L 2700) LUTEINIZING HORMONE (test code = 38.4 IU/L 2776) [id number] 00:00:00 Test Item Value Reference Range Interpretation Comments PROGESTERONE (test code = 2790) 0.93 NG/ML [id number] 00:00:00 Test Item Value Reference Range Interpretation Comments PROGESTERONE (test code = 2790) 0.93 NG/ML [id number] 00:00:00 Test Item Value Reference Range Interpretation Comments RPR RESULT (test code = NON-REACTIVE 3501) RPR TITER (test code = 3500) NOT INDIC. TITER [id number] 00:00:00 Test Item Value Reference Range Interpretation Comments RPR RESULT (test code = NON-REACTIVE 3501) RPR TITER (test code = 3500) NOT INDIC. TITER [id number] 00:00:00 Test Item Value Reference Range Interpretation Comments RPR RESULT (test code = NON-REACTIVE 3501) RPR TITER (test code = 3500) NOT INDIC. TITER HIV AB/AG COMBO RFLX [id number] 00:00:00 Test Item Value Reference Range Interpretation Comments HIV 1/2 4TH GEN, RFLX CONF (test NON-REACTIVE code = 3514) HIV AB/AG COMBO RFLX [id number] 00:00:00 Test Item Value Reference Range Interpretation Comments HIV 1/2 4TH GEN, RFLX CONF (test NON-REACTIVE code = 3514) GC AND CHLAMYDIA, AMPLIFIED, [id number] 00:00:00 Test Item Value Reference Range Interpretation Comments GONORRHEA, NAAT (test code = 56811) NEGATIVE CHLAMYDIA, NAAT (test code = 34508) NEGATIVE GC AND CHLAMYDIA, AMPLIFIED, [id number] 00:00:00 Test Item Value Reference Range Interpretation Comments GONORRHEA, NAAT (test code = 55693) NEGATIVE CHLAMYDIA, NAAT (test code = 55824) NEGATIVE [id number] 00:00:00 Test Item Value Reference Range Interpretation Comments TSH, THIRD GENERATION (test code 1.920 UIU/ML = 2821) [id number] 00:00:00 Test Item Value Reference Range Interpretation Comments TSH, THIRD GENERATION (test code 1.920 UIU/ML = 2821) [id number] 00:00:00 Test Item Value Reference Range Interpretation Comments TSH, THIRD GENERATION (test code 1.920 UIU/ML = 2821) [id number] 00:00:00 Test Item Value Reference Range Interpretation Comments TESTOSTERONE (test code = 2830) 60 NG/DL [id number] 00:00:00 Test Item Value Reference Range Interpretation Comments ESTRADIOL (test code = 2505) 111.0 PG/ML [id number] 00:00:00 Test Item Value Reference Range Interpretation Comments ESTRADIOL (test code = 2505) 111.0 PG/ML FSH + LH [id number] 00:00:00 Test Item Value Reference Range Interpretation Comments FOLLICLE STIM HORMONE (test code = 6.5 IU/L 2700) LUTEINIZING HORMONE (test code = 38.4 IU/L 2776) [id number] 00:00:00 Test Item Value Reference Range Interpretation Comments PROGESTERONE (test code = 2790) 0.93 NG/ML [id number] 00:00:00 Test Item Value Reference Range Interpretation Comments RPR RESULT (test code = NON-REACTIVE 3501) RPR TITER (test code = 3500) NOT INDIC. TITER [id number] 00:00:00 Test Item Value Reference Range Interpretation Comments RPR RESULT (test code = NON-REACTIVE 3501) RPR TITER (test code = 3500) NOT INDIC. TITER HIV AB/AG COMBO RFLX [id number] 00:00:00 Test Item Value Reference Range Interpretation Comments HIV 1/2 4TH GEN, RFLX CONF (test NON-REACTIVE code = 3514) GC AND CHLAMYDIA, AMPLIFIED, [id number] 00:00:00 Test Item Value Reference Range Interpretation Comments GONORRHEA, NAAT (test code = 45510) NEGATIVE CHLAMYDIA, NAAT (test code = 00831) NEGATIVE [id number] 00:00:00 Test Item Value Reference Range Interpretation Comments TSH, THIRD GENERATION (test code 1.920 UIU/ML = 2821) [id number] 00:00:00 Test Item Value Reference Range Interpretation Comments TSH, THIRD GENERATION (test code 1.920 UIU/ML = 2821) [id number] 00:00:00 Test Item Value Reference Range Interpretation Comments TESTOSTERONE (test code = 2830) 60 NG/DL [id number] 00:00:00 Test Item Value Reference Range Interpretation Comments ESTRADIOL (test code = 2505) 111.0 PG/ML [id number] 00:00:00 Test Item Value Reference Range Interpretation Comments ESTRADIOL (test code = 2505) 111.0 PG/ML FSH + LH [id number] 00:00:00 Test Item Value Reference Range Interpretation Comments FOLLICLE STIM HORMONE (test code = 6.5 IU/L 2700) LUTEINIZING HORMONE (test code = 38.4 IU/L 2776) [id number] 00:00:00 Test Item Value Reference Range Interpretation Comments PROGESTERONE (test code = 2790) 0.93 NG/ML [id number] 00:00:00 Test Item Value Reference Range Interpretation Comments RPR RESULT (test code = NON-REACTIVE 3501) RPR TITER (test code = 3500) NOT INDIC. TITER [id number] 00:00:00 Test Item Value Reference Range Interpretation Comments RPR RESULT (test code = NON-REACTIVE 3501) RPR TITER (test code = 3500) NOT INDIC. TITER HIV AB/AG COMBO RFLX [id number] 00:00:00 Test Item Value Reference Range Interpretation Comments HIV 1/2 4TH GEN, RFLX CONF (test NON-REACTIVE code = 3514) GC AND CHLAMYDIA, AMPLIFIED, [id number] 00:00:00 Test Item Value Reference Range Interpretation Comments GONORRHEA, NAAT (test code = 48918) NEGATIVE CHLAMYDIA, NAAT (test code = 54088) NEGATIVE [id number] 00:00:00 Test Item Value Reference Range Interpretation Comments TSH, THIRD GENERATION (test code 1.920 UIU/ML = 2821) [id number] 00:00:00 Test Item Value Reference Range Interpretation Comments TSH, THIRD GENERATION (test code 1.920 UIU/ML = 2821) SARS-CoV-2 (COVID-19) by RT-PCR (HIGH RISK)2020-10-21 00:00:00 Test Item Value Reference Range Interpretation Comments SARS-CoV-2 INTERPRETATION (test NEGATIVE code = 08366) SOURCE (test code = 54618) NOT SPECIFIED SARS-CoV-2 (COVID-19) by RT-PCR (HIGH RISK)2020-10-21 00:00:00 Test Item Value Reference Range Interpretation Comments SARS-CoV-2 INTERPRETATION (test NEGATIVE code = 58872) SOURCE (test code = 68517) NOT SPECIFIED SARS-CoV-2 (COVID-19) by RT-PCR (HIGH RISK)2020-10-21 00:00:00 Test Item Value Reference Range Interpretation Comments SARS-CoV-2 INTERPRETATION (test NEGATIVE code = 08021) SOURCE (test code = 87845) NOT SPECIFIED SARS-CoV-2 (COVID-19) by RT-PCR (HIGH RISK)2020-10-21 00:00:00 Test Item Value Reference Range Interpretation Comments SARS-CoV-2 INTERPRETATION (test NEGATIVE code = 77787) SOURCE (test code = 21530) NOT SPECIFIED SARS-CoV-2 (COVID-19) by RT-PCR (HIGH RISK)2020-10-21 00:00:00 Test Item Value Reference Range Interpretation Comments SARS-CoV-2 INTERPRETATION (test NEGATIVE code = 81033) SOURCE (test code = 00311) NOT SPECIFIED SARS-CoV-2 (COVID-19) by RT-PCR (HIGH RISK)2020-10-21 00:00:00 Test Item Value Reference Range Interpretation Comments SARS-CoV-2 INTERPRETATION (test NEGATIVE code = 62108) SOURCE (test code = 01507) NOT SPECIFIED SARS-CoV-2 (COVID-19) by RT-PCR (HIGH RISK)2020-10-21 00:00:00 Test Item Value Reference Range Interpretation Comments SARS-CoV-2 INTERPRETATION (test NEGATIVE code = 65302) SOURCE (test code = 04621) NOT SPECIFIED SARS-CoV-2 (COVID-19) by RT-PCR (HIGH RISK)2020-10-21 00:00:00 Test Item Value Reference Range Interpretation Comments SARS-CoV-2 INTERPRETATION (test NEGATIVE code = 11601) SOURCE (test code = 08411) NOT SPECIFIED SARS-CoV-2 (COVID-19) by RT-PCR (HIGH RISK)2020-10-21 00:00:00 Test Item Value Reference Range Interpretation Comments SARS-CoV-2 INTERPRETATION (test NEGATIVE code = 37174) SOURCE (test code = 16349) NOT SPECIFIED CBC W/AUTO [id number] 00:00:00 Test Item Value Reference Range Interpretation [...] code = 1015) 283 K/UL CBC W/AUTO [id number] 00:00:00 Test Item Value Reference Range Interpretation [...] (test code = 1015) 283 K/UL LIPID [id number] 00:00:00 Test Item Value Reference Range Interpretation Comments CHOLESTEROL (test code = 2210) 142 MG/DL TRIGLYCERIDES (test code = 2232) 54 MG/DL HDL CHOLESTEROL (test code = 2220) 45 MG/DL CALC LDL CHOL (test code = 2237) 84 MG/DL RISK RATIO LDL/HDL (test code = 1.87 RATIO 2238) COMPREHENSIVE METABOLIC [id number] 00:00:00 Test Item Value Reference Range Interpretation Comments GLUCOSE (test code = 2217) 88 MG/DL BUN (test code = 2208) 10 MG/DL CREATININE (test code = 2214) 0.86 MG/DL eGFR AMER. (test code 99 ML/MIN/1.73 = 93485) eGFR NON- AMER. (test 86 ML/MIN/1.73 code = 27286) CALC BUN/CREAT (test code = 12 RATIO 2235) SODIUM (test code = 2231) 140 MEQ/L POTASSIUM (test code = 2228) 4.4 MEQ/L CHLORIDE (test code = 2215) 104 MEQ/L CARBON DIOXIDE (test code = 24 MEQ/L 2205) CALCIUM (test code = 2209) 9.5 MG/DL PROTEIN, TOTAL (test code = 7.5 G/DL 2229) ALBUMIN (test code = 2201) 4.6 G/DL CALC GLOBULIN (test code = 2.9 G/DL 2240) CALC A/G RATIO (test code = 1.6 RATIO 2234) BILIRUBIN, TOTAL (test code = 0.3 MG/DL 2206) ALKALINE PHOSPHATASE (test 107 U/L code = 2204) AST (test code = 2218) 15 U/L ALT (test code = 2219) 17 U/L [id number] 00:00:00 Test Item Value Reference Range Interpretation Comments TSH, THIRD GENERATION (test code 1.720 UIU/ML = 2821) [id number] 00:00:00 Test Item Value Reference Range Interpretation Comments TSH, THIRD GENERATION (test code 1.720 UIU/ML = 2821) CBC W/AUTO [id number] 00:00:00 Test Item Value Reference Range Interpretation [...] code = 1015) 283 K/UL CBC W/AUTO [id number] 00:00:00 Test Item Value Reference Range Interpretation [...] code = 1015) 283 K/UL CBC W/AUTO [id number] 00:00:00 Test Item Value Reference Range Interpretation [...] (test code = 1015) 283 K/UL LIPID [id number] 00:00:00 Test Item Value Reference Range Interpretation Comments CHOLESTEROL (test code = 2210) 142 MG/DL TRIGLYCERIDES (test code = 2232) 54 MG/DL HDL CHOLESTEROL (test code = 2220) 45 MG/DL CALC LDL CHOL (test code = 2237) 84 MG/DL RISK RATIO LDL/HDL (test code = 1.87 RATIO 2238) LIPID [id number] 00:00:00 Test Item Value Reference Range Interpretation Comments CHOLESTEROL (test code = 2210) 142 MG/DL TRIGLYCERIDES (test code = 2232) 54 MG/DL HDL CHOLESTEROL (test code = 2220) 45 MG/DL CALC LDL CHOL (test code = 2237) 84 MG/DL RISK RATIO LDL/HDL (test code = 1.87 RATIO 2238) COMPREHENSIVE METABOLIC [id number] 00:00:00 Test Item Value Reference Range Interpretation Comments GLUCOSE (test code = 2217) 88 MG/DL BUN (test code = 2208) 10 MG/DL CREATININE (test code = 2214) 0.86 MG/DL eGFR AMER. (test code 99 ML/MIN/1.73 = 95569) eGFR NON- AMER. (test 86 ML/MIN/1.73 code = 20814) CALC BUN/CREAT (test code = 12 RATIO [...] code = 2219) 17 U/L COMPREHENSIVE METABOLIC [id number] 00:00:00 Test Item Value Reference Range Interpretation Comments GLUCOSE (test code = 2217) 88 MG/DL BUN (test code = 2208) 10 MG/DL CREATININE (test code = 2214) 0.86 MG/DL eGFR AMER. (test code 99 ML/MIN/1.73 = 37062) eGFR NON- AMER. (test 86 ML/MIN/1.73 code = 60874) CALC BUN/CREAT (test code = 12 RATIO 2235) SODIUM (test code = 2231) 140 MEQ/L POTASSIUM (test code = 2228) 4.4 MEQ/L CHLORIDE (test code = 2215) 104 MEQ/L CARBON DIOXIDE (test code = 24 MEQ/L 220) CALCIUM (test code = 2209) 9.5 MG/DL [...] ALT (test code = 2219) 17 U/L [id number] 00:00:00 Test Item Value Reference Range Interpretation Comments TSH, THIRD GENERATION (test code 1.720 UIU/ML = 2821) [id number] 00:00:00 Test Item Value Reference Range Interpretation Comments TSH, THIRD GENERATION (test code 1.720 UIU/ML = 2821) [id number] 00:00:00 Test Item Value Reference Range Interpretation Comments TSH, THIRD GENERATION (test code 1.720 UIU/ML = 2821) CBC W/AUTO [id number] 00:00:00 Test Item Value Reference Range Interpretation [...] code = 1015) 283 K/UL CBC W/AUTO [id number] 00:00:00 Test Item Value Reference Range Interpretation [...] code = 1015) 283 K/UL CBC W/AUTO [id number] 00:00:00 Test Item Value Reference Range Interpretation [...] (test code = 1015) 283 K/UL LIPID [id number] 00:00:00 Test Item Value Reference Range Interpretation Comments CHOLESTEROL (test code = 2210) 142 MG/DL TRIGLYCERIDES (test code = 2232) 54 MG/DL HDL CHOLESTEROL (test code = 2220) 45 MG/DL CALC LDL CHOL (test code = 2237) 84 MG/DL RISK RATIO LDL/HDL (test code = 1.87 RATIO 2238) LIPID [id number] 00:00:00 Test Item Value Reference Range Interpretation Comments CHOLESTEROL (test code = 2210) 142 MG/DL TRIGLYCERIDES (test code = 2232) 54 MG/DL HDL CHOLESTEROL (test code = 2220) 45 MG/DL CALC LDL CHOL (test code = 2237) 84 MG/DL RISK RATIO LDL/HDL (test code = 1.87 RATIO 2238) COMPREHENSIVE METABOLIC [id number] 00:00:00 Test Item Value Reference Range Interpretation Comments GLUCOSE (test code = 2217) 88 MG/DL BUN (test code = 2208) 10 MG/DL CREATININE (test code = 2214) 0.86 MG/DL eGFR AMER. (test code 99 ML/MIN/1.73 = 56129) eGFR NON- AMER. (test 86 ML/MIN/1.73 code = 76224) CALC BUN/CREAT (test code = 12 RATIO 2235) SODIUM (test code = 2231) 140 MEQ/L POTASSIUM (test code = 2228) 4.4 MEQ/L CHLORIDE (test code = 2215) 104 MEQ/L CARBON DIOXIDE (test code = 24 MEQ/L 2206) CALCIUM (test code = 2209) 9.5 MG/DL PROTEIN, TOTAL (test code = 7.5 G/DL 222) ALBUMIN (test code = 2201) 4.6 G/DL CALC GLOBULIN (test code = 2.9 G/DL 2240) CALC A/G RATIO (test code = 1.6 RATIO 2234) BILIRUBIN, TOTAL (test code = 0.3 MG/DL 2206) ALKALINE PHOSPHATASE (test 107 U/L code = 2204) AST (test code = 2218) 15 U/L ALT (test code = 2219) 17 U/L COMPREHENSIVE METABOLIC [id number] 00:00:00 Test Item Value Reference Range Interpretation Comments GLUCOSE (test code = 2217) 88 MG/DL BUN (test code = 2208) 10 MG/DL CREATININE (test code = 2214) 0.86 MG/DL eGFR AMER. (test code 99 ML/MIN/1.73 = 71530) eGFR NON- AMER. (test 86 ML/MIN/1.73 code = 08236) CALC BUN/CREAT (test code = 12 RATIO 2235) SODIUM (test code = 2231) 140 MEQ/L POTASSIUM (test code = 2228) 4.4 MEQ/L CHLORIDE (test code = 2215) 104 MEQ/L CARBON DIOXIDE (test code = 24 MEQ/L 2206) CALCIUM (test code = 2209) 9.5 MG/DL PROTEIN, TOTAL (test code = 7.5 G/DL 222) ALBUMIN (test code = 2201) 4.6 G/DL CALC GLOBULIN (test code = 2.9 G/DL 2240) CALC A/G RATIO (test code = 1.6 RATIO 2234) BILIRUBIN, TOTAL (test code = 0.3 MG/DL 2207) ALKALINE PHOSPHATASE (test 107 U/L code = 2204) AST (test code = 2218) 15 U/L ALT (test code = 2219) 17 U/L [id number] 00:00:00 Test Item Value Reference Range Interpretation Comments TSH, THIRD GENERATION (test code 1.720 UIU/ML = 2821) [id number] 00:00:00 Test Item Value Reference Range Interpretation Comments TSH, THIRD GENERATION (test code 1.720 UIU/ML = 2821) [id number] 00:00:00 Test Item Value Reference Range Interpretation Comments TSH, THIRD GENERATION (test code 1.720 UIU/ML = 2821) CBC W/AUTO [id number] 00:00:00 Test Item Value Reference Range Interpretation [...] code = 1015) 283 K/UL CBC W/AUTO [id number] 00:00:00 Test Item Value Reference Range Interpretation [...] code = 1015) 283 K/UL CBC W/AUTO [id number] 00:00:00 Test Item Value Reference Range Interpretation [...] (test code = 1015) 283 K/UL LIPID [id number] 00:00:00 Test Item Value Reference Range Interpretation Comments CHOLESTEROL (test code = 2210) 142 MG/DL TRIGLYCERIDES (test code = 2232) 54 MG/DL HDL CHOLESTEROL (test code = 2220) 45 MG/DL CALC LDL CHOL (test code = 2237) 84 MG/DL RISK RATIO LDL/HDL (test code = 1.87 RATIO 2238) LIPID [id number] 00:00:00 Test Item Value Reference Range Interpretation Comments CHOLESTEROL (test code = 2210) 142 MG/DL TRIGLYCERIDES (test code = 2232) 54 MG/DL HDL CHOLESTEROL (test code = 2220) 45 MG/DL CALC LDL CHOL (test code = 2237) 84 MG/DL RISK RATIO LDL/HDL (test code = 1.87 RATIO 2238) COMPREHENSIVE METABOLIC [id number] 00:00:00 Test Item Value Reference Range Interpretation Comments GLUCOSE (test code = 2217) 88 MG/DL BUN (test code = 2208) 10 MG/DL CREATININE (test code = 2214) 0.86 MG/DL eGFR AMER. (test code 99 ML/MIN/1.73 = 04809) eGFR NON- AMER. (test 86 ML/MIN/1.73 code = 54859) CALC BUN/CREAT (test code = 12 RATIO 2235) SODIUM (test code = 2231) 140 MEQ/L POTASSIUM (test code = 2228) 4.4 MEQ/L CHLORIDE (test code = 2215) 104 MEQ/L CARBON DIOXIDE (test code = 24 MEQ/L 2205) CALCIUM (test code = 2209) 9.5 MG/DL PROTEIN, TOTAL (test code = 7.5 G/DL 222) ALBUMIN (test code = 2201) 4.6 G/DL CALC GLOBULIN (test code = 2.9 G/DL 2240) CALC A/G RATIO (test code = 1.6 RATIO 2234) BILIRUBIN, TOTAL (test code = 0.3 MG/DL 2206) ALKALINE PHOSPHATASE (test 107 U/L code = 2204) AST (test code = 2218) 15 U/L ALT (test code = 2219) 17 U/L COMPREHENSIVE METABOLIC [id number] 00:00:00 Test Item Value Reference Range Interpretation Comments GLUCOSE (test code = 2217) 88 MG/DL BUN (test code = 2208) 10 MG/DL CREATININE (test code = 2214) 0.86 MG/DL eGFR AMER. (test code 99 ML/MIN/1.73 = 33696) eGFR NON- AMER. (test 86 ML/MIN/1.73 code = 26914) CALC BUN/CREAT (test code = 12 RATIO [...] BILIRUBIN, TOTAL (test code = 0.3 MG/DL 7) ALKALINE PHOSPHATASE (test 107 U/L code = 2204) AST (test code = 2218) 15 U/L ALT (test code = 2219) 17 U/L [id number] 00:00:00 Test Item Value Reference Range Interpretation Comments TSH, THIRD GENERATION (test code 1.720 UIU/ML = 2821) [id number] 00:00:00 Test Item Value Reference Range Interpretation Comments TSH, THIRD GENERATION (test code 1.720 UIU/ML = 2821) [id number] 00:00:00 Test Item Value Reference Range Interpretation Comments TSH, THIRD GENERATION (test code 1.720 UIU/ML = 2821) CBC W/AUTO [id number] 00:00:00 Test Item Value Reference Range Interpretation [...] code = 1015) 283 K/UL CBC W/AUTO [id number] 00:00:00 Test Item Value Reference Range Interpretation [...] (test code = 1015) 283 K/UL LIPID [id number] 00:00:00 Test Item Value Reference Range Interpretation Comments CHOLESTEROL (test code = 2210) 142 MG/DL TRIGLYCERIDES (test code = 2232) 54 MG/DL HDL CHOLESTEROL (test code = 2220) 45 MG/DL CALC LDL CHOL (test code = 2237) 84 MG/DL RISK RATIO LDL/HDL (test code = 1.87 RATIO 2238) COMPREHENSIVE METABOLIC [id number] 00:00:00 Test Item Value Reference Range Interpretation Comments GLUCOSE (test code = 2217) 88 MG/DL BUN (test code = 2208) 10 MG/DL CREATININE (test code = 2214) 0.86 MG/DL eGFR AMER. (test code 99 ML/MIN/1.73 = 82367) eGFR NON- AMER. (test 86 ML/MIN/1.73 code = 72565) CALC BUN/CREAT (test code = 12 RATIO [...] ALT (test code = 2219) 17 U/L [id number] 00:00:00 Test Item Value Reference Range Interpretation Comments TSH, THIRD GENERATION (test code 1.720 UIU/ML = 2821) [id number] 00:00:00 Test Item Value Reference Range Interpretation Comments TSH, THIRD GENERATION (test code 1.720 UIU/ML = 2821) CBC W/AUTO [id number] 00:00:00 Test Item Value Reference Range Interpretation [...] code = 1015) 283 K/UL CBC W/AUTO [id number] 00:00:00 Test Item Value Reference Range Interpretation [...] (test code = 1015) 283 K/UL LIPID [id number] 00:00:00 Test Item Value Reference Range Interpretation Comments CHOLESTEROL (test code = 2210) 142 MG/DL TRIGLYCERIDES (test code = 2232) 54 MG/DL HDL CHOLESTEROL (test code = 2220) 45 MG/DL CALC LDL CHOL (test code = 2237) 84 MG/DL RISK RATIO LDL/HDL (test code = 1.87 RATIO 2238) COMPREHENSIVE METABOLIC [id number] 00:00:00 Test Item Value Reference Range Interpretation Comments GLUCOSE (test code = 2217) 88 MG/DL BUN (test code = 2208) 10 MG/DL CREATININE (test code = 2214) 0.86 MG/DL eGFR AMER. (test code 99 ML/MIN/1.73 = 23053) eGFR NON- AMER. (test 86 ML/MIN/1.73 code = 47580) CALC BUN/CREAT (test code = 12 RATIO [...] ALT (test code = 2219) 17 U/L [id number] 00:00:00 Test Item Value Reference Range Interpretation Comments TSH, THIRD GENERATION (test code 1.720 UIU/ML = 2821) [id number] 00:00:00 Test Item Value Reference Range Interpretation Comments TSH, THIRD GENERATION (test code 1.720 UIU/ML = 2821) URINALYSIS [id number] 14:21:00 Test Item Value Reference Range Interpretation [...] NONE BACU) Urine Source? Clean CatchUR HCG [id number] 14:21:00 Test Item Value Reference Range Interpretation Comments UR HCG QUAL (test NEGATIVE This HCGQL test is NOT code = HCGQLU) applicable fo r MALE patients.Check with nurse about probable order error.If Tumor Marker Test needed, nu rse should order test "HCG TU"(Test #550.17510)---- - Urine Source? Clean CatchURINALYSIS [id number] 14:19:00 Test Item Value Reference Range Interpretation [...] NONE BACU) Urine Source? Clean CatchUR HCG [id number] 14:19:00 Test Item Value Reference Range Interpretation Comments UR HCG QUAL (test NEGATIVE This HCGQL test is NOT code = HCGQLU) applicable fo r MALE patients.Check with nurse about probable order error.If Tumor Marker Test needed, nu rse should order test "HCG TU"(Test #550.79096)---- - Urine Source? Clean CatchURINALYSIS [id number] 14:03:00 Test Item Value Reference Range Interpretation [...] NONE BACU) Urine Source? Clean CatchUR HCG [id number] 14:03:00 Test Item Value Reference Range Interpretation Comments UR HCG QUAL (test code = HCGQLU) Urine Source? Clean Catch
[2023-08-13] MEDS ORDERED: HYDROCODONE/APAP 10/325 TAB ONE (17:02)
--- NOTE | 2023-08-13 17:52 | EDPHYS ---
Physician Documentation [facility] Name: Evie Vallejo Age: 43 yrs Sex: Female : 1980 Arrival Date: 08/13/2023 Time: 16:15 Bed 9 Private MD: ED Physician Murray Pham HPI: 08/13 16:49 This 43 yrs old Female presents to ER via Wheelchair with complaints of Ankle Injury. kb 16:49 The patient presents with decreased range of motion, an injury, pain, swelling, kb tenderness. The complaints affect the right ankle. Onset: The symptoms/episode began/occurred yesterday. Context: [place] horseplaying with son, kicked and fell. Associated signs and symptoms: Pertinent positives: swelling, Pertinent negatives: calf tenderness, fever, nausea, numbness, rash, tingling, vomiting, warmth, weakness. Modifying factors: The symptoms are alleviated by nothing, the symptoms are aggravated by weight bearing, movement. Severity of symptoms: At their worst the symptoms were moderate, in the emergency department the symptoms are unchanged. The patient has not experienced similar symptoms in the past. The patient has not recently seen a physician. Historical: - Allergies: 16:36 No Known Allergies; iw - PSHx: 16:36 Cholecystectomy; hip SX; iw ROS: 16:48 Constitutional: Negative for fever, chills, and weight loss, kb 16:48 MS/extremity: Positive for pain, swelling, tenderness, of the right ankle and right rajan, 16:48 All other systems are negative, Exam: 16:48 Constitutional: This is a well developed, well nourished patient who is awake, alert, kb and in no acute distress. Head/Face: Normocephalic, atraumatic. ENT: Moist Mucous membranes Respiratory: Respirations even and unlabored. No increased work of breathing. Talking in full sentences Skin: Warm, dry with normal turgor. Normal color. Neuro: Awake and alert, GCS 15, oriented to person, place, time, and situation. Moves all extremities. Normal gait. 16:48 Musculoskeletal/extremity: Extremities: grossly normal except: noted in the right rajan: pain, tenderness, noted in the right ankle: pain, swelling, tenderness, ROM: limited active range of motion due to pain, Circulation is intact in all extremities. Sensation intact. Vital Signs: 16:37 BP 126 / 78; Pulse 89; Resp 16; Temp 98.14; Pulse Ox 100% on R/A; Weight 77.11 kg; iw MDM: 16:23 Patient medically screened. kb 16:48 Differential diagnosis: fracture, sprain, contusion. Data reviewed: vital signs, nurses kb notes. 17:50 Independent interpretation of the following test(s) in the Emergency Department X-Ray: kb My interpretation is fibula fracture. Counseling: I had a detailed discussion with the patient and/or guardian regarding the historical points, exam findings, and any diagnostic results supporting the discharge/admit diagnosis, radiology results, the need for outpatient follow up, a orthopedic surgeon, to return to the emergency department if symptoms worsen or persist or if there are any questions or concerns that arise at home. 08/13 16:27 Order name: Tib Fib Right XRAY kb 08/13 17:29 Order name: Short Leg Splint; Complete Time: 17:55 kb 08/13 17:29 Order name: Crutches; Complete Time: 17:55 kb Administered Medications: 16:56 Drug: [place] PO 10 mg-325 mg 1 tabs PO once Route: PO; iw 18:08 Drug: Ketorolac IM 30 mg IM once Route: IM; Site: left vastus lateralis; iw Disposition: 08/14 12:08 Co-signature as Attending Physician, Murray Pham MD I reviewed the patient's care rn provided by the Advanced Practice Provider and agree with the diagnosis and treatment plan. Disposition Summary: 08/13/23 17:51 Discharge Ordered Notes: Location: Home kb Condition: Stable kb Diagnosis - Displaced fracture of lateral malleolus of right fibula kb Followup: kb - With: Emergency Department - When: As needed - Reason: Worsening of condition Followup: kb - With: Private Physician - When: 2 - 3 days - Reason: Recheck today's complaints, Continuance of care, Re-evaluation by your physician Discharge Instructions: - Discharge Summary Sheet kb - Ankle Fracture, [id number] kb Forms: - Medication Reconciliation Form kb - Thank You Letter kb - Antibiotic Education kb - Prescription Opioid Use kb - Patient Portal Instructions kb - Leadership Thank You Letter kb - Work release form iw Prescriptions: - Ibuprofen 800 mg Oral Tablet - take 1 tablet ORAL route every 8 hours As needed take with food; 30 tablet; kb Refills: 0, Product Selection Permitted - Tramadol 50 mg Oral Tablet - take 1 tablet ORAL route every 8 hours as needed; 12 tablet; Refills: 0, kb Product Selection Permitted Signatures: Dispatcher [employer] Indiana Weiner, Saranya Singh RN RN iw Murray Pham MD MD director internal control: (The following items were deleted from the chart) 08/13 17:08 16:27 Ankle Right 3 View+RAD.RAD.BRZ ordered. HANNYKS DEREK
--- NOTE | 2023-08-13 17:52 | ER ---
Nurse's Notes [facility] Name: Evie Vallejo Age: 43 yrs Sex: Female : 1980 Arrival Date: 08/13/2023 Time: 16:15 Bed 9 Private MD: Diagnosis: Displaced fracture of lateral malleolus of right fibula Presentation: 08/13 16:36 Chief complaint: Patient states: rolled her right ankle last night. Coronavirus screen: iw At this time, the client does not indicate any symptoms associated with coronavirus-19. Ebola Screen: Patient negative for fever greater than or equal to 101.5 degrees Fahrenheit, and additional compatible Ebola Virus Disease symptoms Patient denies exposure to infectious person. Patient denies travel to an Ebola-affected area in the 21 days before illness onset. No symptoms or risks identified at this time. Initial Sepsis Screen: Does the patient meet any 2 criteria? No. Patient's initial sepsis screen is negative. Does the patient have a suspected source of infection? No. Patient's initial sepsis screen is negative. Risk Assessment: Do you want to hurt yourself or someone else? Patient reports no desire to harm self or others. 16:36 Method Of Arrival: Wheelchair iw 16:36 Acuity: DAVID 4 iw Historical: - Allergies: 16:36 No Known Allergies; iw - PSHx: 16:36 Cholecystectomy; hip SX; iw Vital Signs: 16:37 BP 126 / 78; Pulse 89; Resp 16; Temp 98.14; Pulse Ox 100% on R/A; Weight 77.11 kg; iw ED Course: 16:20 Patient arrived in ED. mg5 16:21 Indiana Gonzales FNP-C is PHCP. kb 16:21 Murray Pham MD is Attending Physician. kb 16:34 Saranya Seymour, CECILLE is Primary Nurse. iw 16:36 Triage completed. iw 16:36 Arm band placed on. iw 17:07 Tib Fib Right XRAY In Process Unspecified. EDMS 17:55 Crutch training done. Orthoglass splint: Posterior short lleg splint applied on right em1 leg. Administered Medications: 16:56 Drug: [place] PO 10 mg-325 mg 1 tabs PO once Route: PO; iw 18:08 Drug: Ketorolac IM 30 mg IM once Route: IM; Site: left vastus lateralis; iw Outcome: 17:51 Discharge ordered by MD. sprague 18:14 Patient left the ED. iw Signatures: Dispatcher [employer] Indiana Weiner FNP-C FNP-Saranya Ballard, RN RN Yann Willett em1 Una Gonzalez mg5 Corrections: (The following items were deleted from the chart) 18:08 16:37 77.11 kg; iw iw
[2023-08-13] MEDS ORDERED: KETOROLAC 30 MG/ML INJ ONE (18:15)
--- NOTE | 2023-08-13 18:22 | RAD REPORT ---
EXAM DESCRIPTION: RAD - Tib Fib Right - 08/13/2023 5:05 pm CLINICAL HISTORY: PAIN COMPARISON: No comparisons TECHNIQUE: Right tibia and fibula, 2 views. FINDINGS: Oblique mildly displaced distal fibular fracture. There is no dislocation or periosteal re action noted. No acute or suspicious bony finding. Prominent soft tissue swelling about the ankle most pronounced laterally. No foreign body or other so ft tissue abnormality. IMPRESSION: Oblique mildly displaced distal fibular fracture.
== END 2023-08-13 18:14 | disposition home or self-care (01) ==
LOC: ER 16:15
PROC: 2W3QX1Z Immobilization of Right Lower Leg using Splint (ICD-10-PCS; principal; 2023-08-13)
DX: S82.61XA Displaced fracture of lateral malleolus of right fibula, initial encounter for closed fracture (principal)
CPT/HCPCS: 96372; 99284

== ENCOUNTER 2023-12-31 16:33 | Observation (INO) | payer BC, SELFPAY ==
[2023-12-31 17:12] LABS: Absolute Lymphocytes (CBC) 2.4 K/uL (0.7-4.9); Hematocrit 37.8 % (36.0-45.0); Lymphocytes % 25.7 % (15.3-44.8); MCV 90.1 fL (80-100); MPV 8.4 fL (7.6-11.3); Platelets 292 thou/uL (152-406)
[2023-12-31 17:15] LABS: Protime INR 1.02
[2023-12-31] MEDS ORDERED: LORazepam 2 MG/ML VIAL ONE (17:21)
[2023-12-31 17:31] LABS: ALT/SGPT 29 U/L (13-56); Albumin 3.5 g/dL (3.4-5.0); Alkaline Phosphatase 116 U/L (45-117); BUN Blood Urea Nitrogen 12 mg/dL (7-18); Bicarbonate 27 mEq/L (21-32); Bilirubin Total 0.2 mg/dL (0.2-1.0); Glomerular Filtration Rate 71 ml/min (=/>90); Glucose Level 108 mg/dL (74-106); Potassium 3.6 mEq/L (3.5-5.1); Protein, Total 7.3 g/dL (6.4-8.2); Sodium Level 140 mEq/L (136-145); Troponin High Sensitivity 4.1 pg/mL (<58.9)
--- NOTE | 2023-12-31 17:32 | RAD REPORT ---
EXAM DESCRIPTION: CT - Head Brain Wo Cont - 12/31/2023 5:16 pm CLINICAL HISTORY: Left arm numbness COMPARISON: 2022 TECHNIQUE: Computed axial tomography of the head was obtained. IV contrast was not requested. All CT scans are performed using dose optimization technique as appropriate and may include automated exposure control or mA/KV adjustment according to patient size. FINDINGS: An intracranial bleed is not seen The ventricles are normal in caliber No extra-axial fluid collection is noted. No significant hyperdensity within the brain Fluid within the sinuses/ mastoids is not seen. IMPRESSION: No acute intracranial abnormality is seen If patient's symptoms persist MRI of the brain would be recommended
[2023-12-31 17:34] LABS: AST/SGOT < 4 U/L (15-37); Bilirubin Direct < 0.1 mg/dL (0-0.2); Bilirubin Indirect, Calculated ND mg/dL (0.2-0.8)
--- NOTE | 2023-12-31 17:46 | RAD REPORT ---
EXAM DESCRIPTION: CTHead angio12/31/2023 5:16 pm CLINICAL HISTORY: Slurred speech COMPARISON: 2022 TECHNIQUE: 100 cc Isovue [address] angiogram of the head was obtained. 3D MIPS reconstruction performed. All CT scans are performed using dose optimization technique as appropriate and may include automated exposure control or mA/KV adjustment according to patient size. FINDINGS: The distal internal carotid basilar, anterior cerebral, middle cerebral and posterior cere bral arteries do not demonstrate a significant stenosis origin right posterior cerebral artery An aneurysm is not seen No large vessel occlusion IMPRESSION: No significant abnormality is displayed
--- NOTE | 2023-12-31 17:47 | RAD REPORT ---
EXAM DESCRIPTION: [facility]ina Angio12/31/2023 5:16 pm CLINICAL HISTORY: Slurred speech COMPARISON: 2022 TECHNIQUE: 100 cc Isovue [address] angiogram of the neck was obtained. 3D MIPS reconstruction performed. All CT scans are performed using dose optimization technique as appropriate and may include automated exposure control or mA/KV adjustment according to patient size. 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 Vertebral arteries unremarkable No dissection is seen. No high-grade stenosis IMPRESSION: No significant abnormality is displayed [place] Mild stenosis 0 to 49 % Moderate stenosis 50-69% Severe stenosis 70-99%
--- NOTE | 2023-12-31 18:13 | ER ---
Nurse's Notes [facility] Name: Evie Vallejo Age: 43 yrs Sex: Female : 1980 Arrival Date: 12/31/2023 Time: 16:33 Bed 20 Private MD: Diagnosis: Transient ischemic attack;Chest pain Presentation: 12/31 16:40 Chief complaint: Patient states: she has been having left arm numbness for "a few ap3 weeks" as well as daily migraines during this time. patient also complains intermittent chest pain during this time. Patient states that yesterday (12/30/2023)at approx 1400 she started feeling "off" and felt like she was swaying and slurring her words. Coronavirus screen: At this time, the client does not indicate any symptoms associated with coronavirus-19. Ebola Screen: No symptoms or risks identified at this time. Risk Assessment: Do you want to hurt yourself or someone else? Patient reports no desire to harm self or others. Onset of symptoms is unknown. 16:40 Method Of Arrival: Ambulatory ap3 16:40 Acuity: DAVID 2 ap3 16:40 Initial Sepsis Screen: Does the patient meet any 2 criteria? No. Patient's initial aa5 sepsis screen is negative. Does the patient have a suspected source of infection? No. Patient's initial sepsis screen is negative. Triage Assessment: 16:42 General: Appears distressed, Behavior is anxious. Pain: Complains of pain in chest Pain ap3 began gradually, "a few weeks ago". Neuro: Reports numbness in left arm since "a few weeks ago". Cardiovascular: Patient's skin is warm and dry. Respiratory: Airway is patent Respiratory effort is even, unlabored, Respiratory pattern is regular, symmetrical. TIN CAN FEEDER: 16:40 LMP 12/25/2023, unknown aa5 Historical: - Allergies: 16:42 No Known Allergies; ap3 - Home Meds: 16:42 None [Active]; ap3 - PMHx: 16:42 Hypertensive disorder; ap3 - PSHx: 16:42 Cholecystectomy; hip SX; ap3 - Immunization history:: Client reports having NOT received the Covid vaccine. - Social history:: Smoking status: Reported history of juuling and/or vaping. - Family history:: not pertinent. Screenin:43 Abuse screen: Denies threats or abuse. Nutritional screening: No deficits noted. ap3 Tuberculosis screening: No symptoms or risk factors identified. 17:29 Arabella Swallow Protocol Exclusion Criteria: Exclusion Criteria Result: Proceed Brief ap3 Cognitive Screen What is your name? Normal, Where are you right now? Normal, What year is it? Normal. Oral Mechanism Examination Facial Symmetry: Normal, Motion: Normal, Lip Closure: Normal, Oral Mechanism Result: Normal. 3 oz Water Swallow Challenge: Pt able to drink all water without stopping, coughing, choking or throat clearing: Yes Result: PASS. 20:01 [facility] ED Fall Risk Assessment (Adult) History of falling in the last 3 months, me1 including since admission No falls in past 3 months (0 pts) Confusion or Disorientation No (0 pts) Intoxicated or Sedated No (0 pts) Impaired Gait No (0 pts) Mobility Assist Device Used No (0 pt) Altered Elimination No (0 pt) Score/Fall Risk Level 0 - 2 = Low Risk Maintained a safe environment, Provided non-skid footwear, Hourly rounding (assess needs \\T\\ fall precautionary measures) done. Assessment: 16:40 General: Appears uncomfortable, well groomed, well developed, well nourished, Behavior me1 is calm, cooperative, appropriate for age, Reports she has been having left arm numbness for "a few weeks" as well as daily migraines during this time. patient also complains intermittent chest pain during this time. Patient states that yesterday (12/30/2023)at approx 1400 she started feeling "off" and felt like she was swaying and slurring her words. Pain: Complains of pain in chest Pain radiates to left arm Pain currently is 3 out of 10 on a pain scale. Quality of pain is described as dull, Pain began gradually, Is intermittent. Neuro: Level of Consciousness is awake, alert, obeys commands, Oriented to person, place, time, situation, Appropriate for age. Neuro: Gin Feeder are equal bilaterally Moves all extremities. Full function Gait is steady, Speech is normal, Facial symmetry appears normal, Pupils are PERRLA, Numbness in left arm. Cardiovascular: Capillary refill < 3 seconds Patient's skin is warm and dry. Respiratory: Airway is patent Trachea midline Respiratory effort is even, unlabored, Respiratory pattern is regular, symmetrical. 20:54 General: Report called to LEIGHANN Mirza at [facility]. [facility] is setting up [facility] transportation to pick patient up.. 21:42 Reassessment: Patient and/or family updated on plan of care and expected duration. Pain cm10 level reassessed. Patient is alert, oriented x 3, equal unlabored respirations, skin warm/dry/pink. Assumed care of patient at 2100. Pt currently resting on stretcher. Pt reports that she is having chest pain and is having anxiety. Pt reports that she is stressed. Pt updated on plan of care. Respirations even and unlabored. IV site clean, dry and intact. Call light in reach. Vital Signs: 16:40 Temp 98.7; Weight 90.72 kg; Height 5 ft. 5 in. ; ap3 16:40 BP 141 / 95; Pulse 80; Resp 16 S; Pulse Ox 100% on R/A; Weight 90.72 kg (R); Height 5 aa5 ft. 5 in. (R); 16:40 BP 141 / 95; Pulse 81; Resp 18; Pulse Ox 100% on R/A; me1 17:30 BP 128 / 91; Pulse 79; Resp 18; Pulse Ox 99% on R/A; ap3 18:00 BP 128 / 91; Pulse 76; Resp 16; Pulse Ox 100% on R/A; me1 19:00 BP 133 / 79; Pulse 89; Resp 19; Pulse Ox 100% ; me1 20:30 BP 143 / 90; Pulse 80; Resp 17; Pulse Ox 97% on R/A; me1 21:30 BP 125 / 92; Pulse 77; Resp 16; Pulse Ox 100% on R/A; cm10 16:40 Body Mass Index 33.28 (90.72 kg, 165.1 cm) ap3 ED Course: 16:34 Patient arrived in ED. im 16:38 Tuan Schaefer MD is Attending Physician. rt 16:42 Triage completed. ap3 16:43 Arm band placed on right wrist. ap3 16:51 Ifeoma Delgado, CECILLE is Primary Nurse. me1 17:01 Inserted saline lock: 22 gauge in right antecubital area, using aseptic technique. me1 17:02 Basic Metabolic Panel Sent. me1 17:02 CBC with Diff Sent. me1 17:02 Hepatic Function Sent. me1 17:02 High Sensitivity Troponin Sent. me1 17:02 Magnesium Sent. me1 17:02 Protime (+inr) Sent. me1 17:02 Ptt, Activated Sent. me1 17:18 CT Head Angio In Process Unspecified. EDMS 17:18 CT Neck Angio In Process Unspecified. EDMS 17:18 Head Brain Wo Cont In Process Unspecified. EDMS 17:30 Patient has correct armband on for positive identification. Placed in gown. Bed in low ap3 position. Call light in reach. Side rails up X2. color television console monitor on. Pulse ox on. NIBP on. 17:30 Patient maintains SpO2 saturation greater than 95% on room air. ap3 17:34 Stroke CXR 1 View In Process Unspecified. EDMS 18:12 Mayank Hauser MD is Hospitalizing Provider. rt 20:00 Provided Education on: POC. Verbalized understanding. . me1 20:00 No provider procedures requiring assistance completed. me1 21:20 Primary Nurse role handed off by Ifeoma Delgado, CECILLE ap3 21:42 Migdalia Rutledge, CECILLE is Primary Nurse. cm10 22:11 Patient admitted, IV remains in place. cm10 Administered Medications: 17:28 Drug: Ativan IVP 1 mg IVP once Route: IVP; Site: right antecubital; ap3 18:58 Follow up: Response: No adverse reaction; Anxiety decreased me1 19:01 Drug: Aspirin PO 325 mg PO once Route: PO; me1 19:03 Follow up: Response: No adverse reaction me1 Medication: 20:01 VIS not applicable for this client. me1 Outcome: 18:12 Decision to Hospitalize by Provider. rt 22:11 Admitted to Med/surg accompanied by nurse, via wheelchair, room 221, with chart, Report cm10 called to CECILLE Urban 22:11 Condition: good 22:11 Instructed on the need for admit, 22:15 Patient left the ED. cm10 Signatures: Dispatcher [employer] Faye Meredith, RN RN aa5 Leatha Short RN RN ap3 Tuan Schaefer MD MD rt Khalida Espitia Clarissa, RN RN cm10 Ifeoma Delgado, CECILLE RN me1 Corrections: (The following items were deleted from the chart) 19:45 16:40 Chief complaint: Patient states: she has been having left arm numbness for "a few me1 weeks" as well as daily migraines during this time. patient also complains intermittent chest pain during this time. Patient states that yesterday (12/30/2023)at approx 1400 she started feeling "off" and felt like she was swaying and slurring her words. ap3 19:48 19:40 TEST, SERUM+SC.LAB.BRZ drawn and sent. me1 EDMS 19:57 16:40 Chief complaint: Patient states: she has been having left arm numbness for "a few me1 weeks" as well as daily migraines during this time. patient also complains intermittent chest pain during this time. Patient states that yesterday (12/30/2023)at approx 1400 she started feeling "off" and felt like she was swaying and slurring her words. me1
--- NOTE | 2023-12-31 18:13 | EDPHYS ---
Physician Documentation [facility] Name: Evie Vallejo Age: 43 yrs Sex: Female : 1980 Arrival Date: 12/31/2023 Time: 16:33 Bed 20 Private MD: ED Physician Tuan Schaefer HPI: 12/31 17:26 This 43 yrs old Female presents to ER via Ambulatory with complaints of Numbness Of Arm rt - Left, Chest Pain, Slurred Speech. 17:34 Patient presents to the ED with reported shaking, chest pain, left arm numbness and rt slurred speech. Patient states that she is been shaky for several days now, at the other symptoms starting this week. Patient denies other acute complaints this time, symptoms are moderate in severity, no other aggravating or alleviating factors.. CORN BREEDER: 16:40 LMP 12/25/2023, unknown aa5 Historical: - Allergies: 16:42 No Known Allergies; ap3 - Home Meds: 16:42 None [Active]; ap3 - PMHx: 16:42 Hypertensive disorder; ap3 - PSHx: 16:42 Cholecystectomy; hip SX; ap3 - Immunization history:: Client reports having NOT received the Covid vaccine. - Social history:: Smoking status: Reported history of juuling and/or vaping. - Family history:: not pertinent. ROS: 17:34 Cardiovascular: Positive for chest pain, Negative for edema, rt 17:54 Neuro: Positive for rt 17:58 Constitutional: Negative for fever, chills, and weight loss, rt 17:58 Respiratory: Negative for shortness of breath, cough, wheezing, and pleuritic chest pain, Abdomen/GI: Negative for abdominal pain, nausea, vomiting, diarrhea, and constipation, MS/Extremity: Negative for injury and deformity, Skin: Negative for injury, rash, and discoloration, Psych: Negative for depression, anxiety, suicide ideation, homicidal ideation, and hallucinations, 17:58 Neuro: Positive for numbness, speech changes, Exam: 17:58 Constitutional: This is a well developed, well nourished patient who is awake, alert, rt and in no acute distress. Head/Face: Normocephalic, atraumatic. Chest/axilla: Normal chest wall appearance and motion. Nontender with no deformity. No lesions are appreciated. Cardiovascular: Regular rate and rhythm with a normal S1 and S2. No gallops, murmurs, or rubs. Normal PMI, no JVD. No pulse deficits. Respiratory: Lungs have equal breath sounds bilaterally, clear to auscultation and percussion. No rales, rhonchi or wheezes noted. No increased work of breathing, no retractions or nasal flaring. Abdomen/GI: Soft, non-tender, with normal bowel sounds. No distension or tympany. No guarding or rebound. No evidence of tenderness throughout. Skin: Warm, dry with normal turgor. Normal color with no rashes, no lesions, and no evidence of cellulitis. MS/ Extremity: Pulses equal, no cyanosis. Neurovascular intact. Full, normal range of motion. Neuro: Awake and alert, GCS 15, oriented to person, place, time, and situation. Cranial nerves II-XII grossly intact. Motor strength 5/5 in all extremities. Sensory grossly intact. Cerebellar exam normal. Normal gait. Psych: Awake, alert, with orientation to person, place and time. Behavior, mood, and affect are within normal limits. 17:59 ECG was reviewed by the Attending Physician. rt Vital Signs: 16:40 Temp 98.7; Weight 90.72 kg; Height 5 ft. 5 in. ; ap3 16:40 BP 141 / 95; Pulse 80; Resp 16 S; Pulse Ox 100% on R/A; Weight 90.72 kg (R); Height 5 aa5 ft. 5 in. (R); 16:40 BP 141 / 95; Pulse 81; Resp 18; Pulse Ox 100% on R/A; me1 17:30 BP 128 / 91; Pulse 79; Resp 18; Pulse Ox 99% on R/A; ap3 18:00 BP 128 / 91; Pulse 76; Resp 16; Pulse Ox 100% on R/A; me1 19:00 BP 133 / 79; Pulse 89; Resp 19; Pulse Ox 100% ; me1 20:30 BP 143 / 90; Pulse 80; Resp 17; Pulse Ox 97% on R/A; me1 21:30 BP 125 / 92; Pulse 77; Resp 16; Pulse Ox 100% on R/A; cm10 16:40 Body Mass Index 33.28 (90.72 kg, 165.1 cm) ap3 MDM: 16:39 Patient medically screened. rt 18:12 Differential diagnosis: CVA, TIA, panic attack, ACS, pneumonia. Data reviewed: vital rt signs, nurses notes. Consideration of Admission/Observation Patient was admitted/placed on observation. Management of patient was discussed with the following: Hospitalist: Agrees with. I considered the following discharge prescriptions or medication management in the emergency department Medications were administered in the Emergency Department. See MAR. Independent interpretation of the following test(s) in the Emergency Department X-Ray: My interpretation is No consolidations on interpretation of x-ray images. Counseling: I had a detailed discussion with the patient and/or guardian regarding the historical points, exam findings, and any diagnostic results supporting the discharge/admit diagnosis, lab results, radiology results, the need for further work-up and treatment in the hospital. Response to treatment: the patient's symptoms have markedly improved after treatment. 12/31 16:46 Order name: Basic Metabolic Panel; Complete Time: 17:51 rt 12/31 16:46 Order name: CBC with Diff; Complete Time: 17:51 rt 12/31 16:46 Order name: Hepatic Function; Complete Time: 17:51 rt 12/31 16:46 Order name: High Sensitivity Troponin; Complete Time: 17:51 rt 12/31 16:46 Order name: Magnesium; Complete Time: 17:51 rt 12/31 16:46 Order name: Protime (+inr); Complete Time: 17:51 rt 12/31 16:46 Order name: Ptt, Activated; Complete Time: 17:51 rt 12/31 19:48 Order name: Test, Urine EDMS 12/31 20:51 Order name: Anti-Thrombin III Activity EDMS 12/31 20:51 Order name: C-ANCA Anti-Proteinase 3 EDMS 12/31 20:51 Order name: Cardiolipin Antibodies G,M EDMS 12/31 20:51 Order name: Factor V Leiden Mutation EDMS 12/31 20:51 Order name: Homocysteine EDMS 12/31 20:51 Order name: Miscellaneous Test Lab EDMS 12/31 20:51 Order name: P-ANCA Anti-Myeloperoxidase Ab EDMS 12/31 20:51 Order name: Protein C Antigen EDMS 12/31 20:51 Order name: Protein Electo w/M Jose Manuel Serum EDMS 12/31 20:51 Order name: Protein S (Total EDMS 12/31 20:51 Order name: PROTHROMBIN GENE ANALYSIS (F2) EDNC 12/31 20:51 Order name: RPR EDNC 12/31 20:51 Order name: Vitamin B12 Level EDNC 12/31 20:51 Order name: Vitamin D, 25 (OH), TOTAL EDNC 12/31 20:51 Order name: Lipid Profile EDNC 12/31 20:51 Order name: Lipid Profile EDNC 12/31 16:46 Order name: CT Head Angio; Complete Time: 17:51 rt 12/31 16:46 Order name: CT Neck Angio; Complete Time: 17:51 rt 12/31 16:46 Order name: Stroke CXR 1 View rt 12/31 16:55 Order name: Head Brain Wo Cont; Complete Time: 17:51 EDNC 12/31 20:51 Order name: Echo with Doppler EDNC 12/31 20:51 Order name: Chest Pa And Lat (2 Views) EDNC 12/31 16:46 Order name: EKG; Complete Time: 16:47 rt 12/31 20:51 Order name: IRF Screen EDNC 12/31 20:51 Order name: Physical Therapy Consult EDNC 12/31 20:51 Order name: Speech Therapy Consult EDNC 12/31 20:51 Order name: EKG Electrocardiogram EDNC 12/31 16:46 Order name: Cardiac monitoring; Complete Time: 17:01 rt 12/31 16:46 Order name: EKG - Nurse/Tech; Complete Time: 17:01 12/31 16:46 Order name: IV Saline Lock; Complete Time: 17:01 12/31 16:46 Order name: Labs collected and sent; Complete Time: 17:01 rt 12/31 16:46 Order name: NPO; Complete Time: 16:51 rt 12/31 16:46 Order name: O2 Per Protocol; Complete Time: 17:01 12/31 16:46 Order name: O2 Sat Monitoring; Complete Time: 17:01 rt 12/31 16:46 Order name: Stroke Swallow Screen; Complete Time: 17:29 rt EC:59 Rate is 76 beats/min. Rhythm is regular, Normal Sinus Rhythm with No ectopy. QRS Cascade rt is Normal. TX interval is normal. QRS interval is normal. QT interval is normal. No Q waves. No ST changes noted. Administered Medications: 17:28 Drug: Ativan IVP 1 mg IVP once Route: IVP; Site: right antecubital; ap3 18:58 Follow up: Response: No adverse reaction; Anxiety decreased me1 19:01 Drug: Aspirin PO 325 mg PO once Route: PO; me1 19:03 Follow up: Response: No adverse reaction me1 Disposition Summary: 12/31/23 18:12 Hospitalization Ordered Notes: Hospitalization Status: Observation rt Provider: Mayank Hauser rt Location: Telemetry/MedSurg (observation) rt Condition: Stable rt Problem: new rt Symptoms: have improved rt Bed/Room Type: Standard rt Room Assignment: 221(12/31/23 21:50) jb4 Diagnosis - Transient ischemic attack rt - Chest pain rt Forms: - Medication Reconciliation Form rt - SBAR form rt - Leadership Thank You Letter rt Signatures: Dispatcher [employer] EDMicheal Glaser RN RN jb4 Leatha Short RN RN ap3 Tuan Schaefer MD MD rt Ifeoma Delgado RN RN me1 Corrections: (The following items were deleted from the chart) 16:55 16:47 CT-STROKE BRAIN W/O CONTRAST+CT.RAD.BRZ ordered. EDMS EDMS 17:30 16:46 Accucheck ordered. rt ap3 19:48 16:47 TEST, SERUM+SC.LAB.BRZ ordered. EDMS EDMS 21:50 18:12 rt jb4
[2023-12-31] MEDS ORDERED: ASPIRIN 325 MG TAB ONE (19:00)
--- NOTE | 2023-12-31 19:19 | RAD REPORT ---
EXAM DESCRIPTION: Berry Single View12/31/2023 5:33 pm CLINICAL HISTORY: Chest pain COMPARISON: 2022 FINDINGS: The lungs appear clear of acute infiltrate. The heart is normal size IMPRESSION: No acute abnormalities displayed
[2023-12-31 20:00] LABS: Specific Gravity > 1.030 (1.005-1.030)
[2023-12-31] MEDS ORDERED: ONDANSETRON 4 MG/2 ML VIAL IV PRN (20:42)
--- NOTE | 2023-12-31 20:50 | P.HP ---
Certification for Inpatient Patient admitted to: Observation With expected LOS: <2 Midnights Practitioner: I am a practitioner with admitting privileges, knowledge of patient current condition, hospital course, and medical plan of care. Services: Services provided to patient in accordance with Admission requirements found in Title 42 Section 412.3 of the Code of Federal Regulations Patient History Date of Service: 01/01/24 Reason for admission: Slow speech, chest discomfort. History of Present Illness: 43-year-old female patient with medical history significant for hypertension, history of neuropathy was evaluated for episode of slurred speech and arm discomfort. She also had some chest discomfort. She reported that she began to have episode of numbness in the left arm with chest discomfort that was concerning and also slurred speech. She was evaluated in ED for possible stroke episode and CTA head and neck and CT of the head was not abnormal. She was subsequently admitted for workup of stroke/TIA. She denies overt episode of nausea, vomiting, dizzy spells. She reported a significant history of family members with heart disease and her father had a pacemaker placed in his 40s. Initial troponin was negative and EKG was normal. Allergies No Known Allergies Allergy (Verified 02/01/23 20:14) Home Medications: Albuterol Inhaler [Ventolin Inhaler] 2 puff IH Q6H PRN 12/31/23 Gabapentin 600 mg PO DAILY 12/31/23 lisinopriL [Lisinopril] 20 mg PO BID 01/01/24 - Past Medical/Surgical History Diabetic: No -: asthma -: seasonal allergies -: bronchitis -: D&C 2005 -: -: right hip surgery - Social History Alcohol use: Yes CD- Drugs: No Caffeine use: Yes Review of Systems General: Unremarkable Eyes: Unremarkable ENT: Unremarkable Respiratory: Unremarkable Cardiovascular: As per HPI Gastrointestinal: Unremarkable Genitourinary: Unremarkable Musculoskeletal: Unremarkable Integumentary: Unremarkable Neurological: As per HPI Physical Examination - Physical Exam General: Alert, Oriented x3 HEENT: Atraumatic Neck: Supple Respiratory: Normal air movement Cardiovascular: Regular rate/rhythm, Normal S1 S2 Gastrointestinal: Soft and benign Musculoskeletal: No swelling Neurological: Normal speech, Normal strength at 5/5 x4 extr - Studies Laboratory Data (last 24 hrs) 12/31/23 12/31/23 12/31/23 16:59 16:59 16:59 WBC 9.50 Hgb 12.8 Hct 37.8 Plt Count 292 PT 11.2 INR 1.02 APTT 31.7 Sodium 140 Potassium 3.6 BUN 12 Creatinine 1.02 Glucose 108 H Magnesium 2.0 Total Bilirubin 0.2 AST < 4 L ALT 29 Alkaline Phosphatase 116 Assessment and Plan - Plan TIA/CVA: Symptom complex is concerning. Initial imaging studies are significantly normal. Will obtain MRI brain to further evaluate. Also obtain echocardiogram. Will continue aspirin therapy ACS rule out: We will workup for possible ACS based on symptom complex. Echocardiogram pending Troponin trended. Hypertension: We will monitor vital signs per unit protocol and continue antihypertensive medications. Prophylaxis: Lovenox for DVT prophylaxis. CODE STATUS: Full code. Disposition: We will treat TIA/CVA, rule out ACS and discharge her when she is deemed clinically stable. - Advance Directives Does patient have a Living Will: No Does patient have a Durable POA for Healthcare: No
[2023-12-31] MEDS: ATORVASTATIN 20 MG TAB PO SCH (21:00)
[2023-12-31] MEDS ORDERED: ATORVASTATIN 40 MG TAB ONE (21:57)
[2023-12-31] MEDS ORDERED: NA CHLORIDE 0.9% 1,000 ML ONE (21:57)
[2023-12-31] MEDS ORDERED: ACETAMINOPHEN 500 MG TAB ONE (21:57)
[2023-12-31] MEDS: ACETAMINOPHEN 500 MG TAB PO PRN (22:05)
[2023-12-31] MEDS: NA CHLORIDE 0.9% 1,000 ML IV SCH (22:05)
[2023-12-31 22:41] VITALS: O2SAT 100
[2024-01-01] MEDS: TRAMADOL HCL 50 MG TAB PO ONE ×2 (00:25→04:26)
[2024-01-01 00:28] VITALS: BMI 33.3
[2024-01-01] MEDS: ZOLPIDEM TARTRATE 10 MG TABLET PO ONE (04:17)
[2024-01-01 06:12] LABS: RPR (Rapid Plasma Reagin) NON-REACT (NON-REACT)
[2024-01-01] MEDS: ASPIRIN EC 81 MG TAB PO SCH (08:37)
[2024-01-01] MEDS: ENOXAPARIN 40 MG/0.4 ML SQ SCH (08:38)
[2024-01-01] MEDS: ALPRAZOLAM 0.5 MG TABLET PO ONE (09:51)
--- NOTE | 2024-01-01 11:49 | ECHO ---
HEIGHT: 5 ft 5 in WEIGHT: 200 lb 0 oz DATE OF STUDY: 01/01/[address]: Mayank Hauser MD 2-DIMENSIONAL: YES M.MODE: YES DOPPLER: YES COLOR FLOW: YES TDS: PORTABLE: YES DEFINITY: BUBBLE STUDY: DIAGNOSIS: STROKE CARDIAC HISTORY: CATHERIZATION: NO SURGERY: NO PROSTHETIC VALVE: NO PACEMAKER: NO MEASUREMENTS (cm) DIASTOLIC (NORMALS) SYSTOLIC (NORMALS) IVSd 0.9 (0.6-1.2) LA Diam 2.4 (1.9-4.0) LVEF 50% LVIDd 4.6 (3.5-5.7) LVIDs 3.4 (2.0-3.5) %FS 25% LVPWd 0.9 (0.6-1.2) Ao Diam 2.7 (2.0-3.7) 2 DIMENSIONAL ASSESSMENT: RIGHT ATRIUM: NORMAL LEFT ATRIUM: NORMAL RIGHT VENTRICLE: NORMAL LEFT VENTRICLE: MILD LEFT VENTRICULAR HYPERTROPHY TRICUSPID VALVE: TRACE TRICUSPID REGURGITATION MITRAL VALVE: MILD MITRAL REGURGITATION PULMONIC VALVE: NORMAL AORTIC VALVE: MILD AORTIC INSUFFICIENCY PERICARDIAL EFFUSION: NONE AORTIC ROOT: NORMAL LEFT VENTRICULAR WALL MOTION: NORMAL DOPPLER/COLOR FLOW: NORMAL COMMENTS: 1. NORMAL LEFT VENTRICULAR SYSTOLIC FUNCTION, EJECTION FRACTION 55-60%, NORMAL WALL MOTION 2. MILD MITRAL REGURGITATION, AORTIC REGURGITATION 3. TRACE TRICUSPID REGURGITATION, NORAML FILLING PRESSURE TECHNOLOGIST: FORTINO MOON
--- NOTE | 2024-01-01 12:17 | RAD REPORT ---
EXAM DESCRIPTION: MRI - Brain Wo Cont - 01/01/2024 12:00 pm CLINICAL HISTORY: Blurred vision COMPARISON: Head CT December 31, 2023 TECHNIQUE: Axial, sagittal, and coronal magnetic resonance images of the brain were obtained. FINDINGS: Couple of tiny areas of increased signal are present within the cerebrum which may be seco ndary to migraines or ischemic changes secondary to small vessel disease Diffusion-weighted/ADC mapping does not reveal evidence of acute infarction. The ventricles are normal caliber. An extra-axial fluid collection is not noted. Fluid within the sinuses/mastoids is not seen IMPRESSION: No acute intracranial abnormality noted
[2024-01-01 15:49] VITALS: BP 124/66; TEMP 97.4
--- NOTE | 2024-01-01 15:49 | EKG ---
Test Date: 2023-12-31 Test Time: 16:47:49 Nurse Wound Care: ROSA MEASUREMENT RESULTS: Intervals: Rate: 76 HI: 144 QRSD: 84 QT: 376 QTc: 423 Olla: P: 61 HI: 144 QRS: 4 T: 34 INTERPRETIVE STATEMENTS: Normal sinus rhythm Possible Anterior infarct, age undetermined Abnormal ECG Compared to ECG 05/17/2023 11:24:39 Myocardial infarct finding now present Sinus bradycardia no longer present Electronically Signed On 01-01-24 15:46:26 PROPOSAL WRITER by Lewis Renteria
== END 2024-01-01 17:14 | disposition home or self-care (01) ==
LOC: ER 16:33 → ERHOLD 20:42 → 2ND 21:55
PROVIDERS: ADMIT Internal Medicine Nephrology; ATTEND Hospitalist
DX: G45.9 Transient cerebral ischemic attack, unspecified (principal); I10 Essential (primary) hypertension; G62.9 Polyneuropathy, unspecified; R07.89 Other chest pain
CPT/HCPCS: 93005; 93306; 85025; 80048; 36415; 83735; 81025; 85610; 80061; 82565; 80076; 86592; 86593; 85730; 84484 ×2; 82607; 81241; 81240; 82306; 86146 ×3; 83090; 85300; 85302; 85305; 85306; 86021 ×2; 86147 ×2; 84165; 70450; 70496; 70498; 71045; 70551; 92523; 92610; 97116; 97161; 96374; 99285; 83516 ×2; Q9967; J1650; J7030 ×2; G0378